=== PATIENT | male | born 1945 | race Caucasian/White ===

== ENCOUNTER → 2018-05-16 11:30 | Outpatient (CLI) | payer MEDICARE, OTHER, SELFPAY | PROVIDERS: PCP Family Medicine; Visit Provider Internal Medicine Interventional Cardiology | DX: I25.709 Atherosclerosis of coronary artery bypass graft(s), unspecified, with unspecified angina pectoris (principal); E78.5 Hyperlipidemia, unspecified; I35.0 Nonrheumatic aortic (valve) stenosis; I10 Essential (primary) hypertension; Z79.01 Long term (current) use of anticoagulants; Z79.82 Long term (current) use of aspirin; E11.9 Type 2 diabetes mellitus without complications; Z79.84 Long term (current) use of oral hypoglycemic drugs | CPT/HCPCS: 99213 ==

== ENCOUNTER 2018-08-06 17:26 | Emergency (ER) | payer MEDICARE, OTHER, SELFPAY ==
[2018-08-06 17:38] VITALS: BP 139/76; PULSE 87; RESP 18; TEMP 36.7
--- NOTE | 2018-08-06 17:43 | DI.RAD_ITS ---
SYMPTOM/DIAGNOSIS: COUGH, PRODUCTIVE SPUTUM FRONTAL AND LATERAL CHEST: Comparison is made with 04/02/15. Heart size is stable. Sternal wires are in place. Pulmonary vasculature is within normal limits. No focal consolidating infiltrates, effusions or pneumothoraces are identified. The bones are intact. IMPRESSION: No acute pulmonary process.
--- NOTE | 2018-08-06 17:45 | W.ED.GENAD ---
Discharge Plan Disposition Patient Disposition: HOME Condition: Good Discharge Details Chief Complaint: GenMedical Clinical Impression: URI (upper respiratory infection) Primary Care Provider: Lulú Toribio ED Provider: Abraham Bass Home Meds and New Rx's Prescriptions: New azithromycin 250 mg tablet See Label Instructions .ROUTE .COMPLEX Qty: 6 RF: 0 No Action multivitamin [Once Daily] 1 EACH tablet 1 tab PO DAILY RF: 0 acetaminophen [Tylenol] 325 MG tablet 2 tab PO PRN RF: 0 blood sugar diagnostic [Blood Glucose Test] 1 EACH strip 1 ea Miscellaneous QID Qty: 400 RF: 4 aspirin [Aspirin Low-Strength] 81 MG tablet,chewable 1 tab.chew PO DAILY RF: 0 lancets 1 EACH misc 1 ea Miscellaneous QID Qty: 400 RF: 4 clotrimazole-betamethasone [Lotrisone] 45 GM cream 1 autumn Topical BID PRNQty: 45 RF: 12 albuterol sulfate [ProAir HFA] 8.5 GM HFA aerosol inhaler 1 - 2 puff Inhalation Q6H PRN Qty: 1 RF: 12 ramelteon [Rozerem] 8 MG tablet 8 mg PO HS PRNRF: 0 clopidogrel [Plavix] 75 MG tablet 75 mg PO DAILY Qty: 90 RF: 4 glipizide 10 MG tablet extended release 24hr 10 mg PO DAILY Qty: 90 RF: 11 zaleplon 5 MG capsule 1 - 2 tab PO HS RF: 0 metoprolol succinate 100 MG tablet extended release 24 hr 100 mg PO DAILY Qty: 90 RF: 12 lisinopril 30 MG tablet 30 mg PO DAILY Qty: 90 RF: 11 Metoprolol Succinate 25 MG TAB.ER.24H 25 mg PO DAILY Qty: 90 RF: 12 doxycycline monohydrate 100 MG capsule 100 mg PO BID Qty: 20 RF: 0 atorvastatin [Lipitor] 80 MG tablet 1 tab PO DAILY Qty: 90 RF: 4 tamsulosin [Flomax] 0.4 MG capsule 1 tab PO HS Qty: 90 RF: 4 pantoprazole [Protonix] 40 MG tablet,delayed release (DR/EC) 1 tab PO Q48 H PRNQty: 90 RF: 4 Discharge Instructions Instructions: Upper Respiratory Infection (ED) Additional Instructions: If you do not notice any improvement of your symptoms in the next 24-48 hours please start taking the antibiotics. Please follow-up with your bag machine set up operator as soon as possible for further evaluation of your EKG findings. If you notice any worsening of your symptoms, or any new symptoms such as vomiting, diarrhea, fever, chills, shortness of breath, chest pain, numbness, weakness, or fainting , please return immediately to the emergency department for reevaluation. Please follow up with your primary care provider as soon as possible for reassessment and reevaluation. As always, it was a pleasure participating in your medical care today. Referrals: Lulú Toribio MD, [place] [Primary Care Provider] - Medical Decision Making This is a very pleasant 72-year-old male with a history of cardiac disease no history of lung problems, who presents today for evaluation of cough. He and his have similar symptoms, it began when they are exposed to 1 of their family members 4 days ago who had an upper respiratory infection. Since then the patient has had a mild cough for the last 4 days with andujar sputum, he denies any green or purulent sputum, hemoptysis, shortness of breath, chest pain, chest pressure, arm neck or shoulder discomfort. On physical exam the patient appears clinically well, he shows no signs of wheezes rales or rhonchi, his vitals are all stable with no tachycardia, hypoxemia, hypotension, tachypnea or fever. We will get an x-ray to evaluate for any acute etiology, specifically pneumonia however I feel this unlikely. EKG 17: 52 Rate 88, intervals normal, questionable irregular conduction with artifact concerning for potential atrial fibrillation/a flutter. No significant ST elevations or depressions, Q waves in lead III. No T wave inversions. Previous EKG for comparison was in 2014. EKG 20: 12 Rate 92, QTc 421, QRS 92, atrial fibrillation, no ST elevations or depressions, no T wave inversions. Q waves in lead III. 7:48 PM Chest x-ray has returned and is negative per radiology. Clinically the patient appears well with no vital sign abnormalities, no hypoxemia, no signs of respiratory distress. Because of the patient's symptoms, we will give him a prescription for azithromycin however I have instructed him not to take this unless he shows no improvement of his symptoms over the next 48 hours. I feel at this time he is suffering from an upper respiratory infection is most likely viral in etiology. With no chest pain, shortness of breath, arm neck or shoulder pain, no chest pressure I feel that his current clinical symptoms are inconsistent with a cardiac etiology. I did discuss with the patient his EKG finding of atrial fibrillation, he states that he has been worked up thoroughly for A. fib by his bag machine set up operator Dr. Huerta and states that it was not felt that he needed anticoagulation therapy. He is already on aspirin and Plavix at home for antiplatelet medication. Review of the patient's prior EKG from 2014 which is quite distance from his recent follow-up with Dr. Huerta shows no evidence of A. fib at that time. However with the evidence of the A. fib on today's EKG, and repeat EKG, as well as his chads vas score calculated to be 4, anticoagulation is recommended. I discussed with the patient starting on anticoagulation now, and after a long discussion the patient has requested to hold off on anticoagulation at this time and continue his aspirin and Plavix. He would like to follow-up with his bag machine set up operator for this potential change on a short-term basis. We did discuss the risks and benefits of just using antiplatelet medication instead of anticoagulation medication the patient states that he understands this risk. Personally reviewed the risks on the chads vas 2 score and he understands. I did discuss with the patient the importance of close follow-up with Dr. Huerta for review of his EKG. we did place a page out to [facility], however they did not call back for an hour, and the patient was unwilling to wait and wanted to go home. I have extensively reviewed the treatment plan and discharge instructions with the patient and their family. I have addressed all patient concerns at this time. The patient and family was made aware of what symptoms to monitor for that would warrant a return to the emergency department. Discussed the plan with the patient and family, they demonstrate verbal understanding and agreement with our assessment and plan at this time. FINDINGS: Lungs: Unremarkable. No consolidation. Pleural space: Unremarkable. No pneumothorax. Heart: Unremarkable. No cardiomegaly. Mediastinum: Unremarkable. Bones/joints: Median sternotomy wires noted. Disc osteophyte of the spine. IMPRESSION: No acute findings. Dictated and Authenticated by: Ron Garzon MD. HPI General Date/Time Provider Initiated Documentation: 10/27/18 17:43. HPI Narrative: This is a 72-year-old male with a past medical history of a CABG, diabetes, hypertension, who takes daily aspirin and Plavix, who presents today with his for evaluation of cough. His is very sick, and the patient wanted to come in to be checked out. He states that 4 days ago. Family that had an upper respiratory infection, shortly thereafter he and his came down with the symptoms. He has had a cough with productive andujar sputum. He denies any significant fever, he denies any chills, shortness of breath, chest pain, arm pain, neck pain or shoulder pain. He states that none of these symptoms that he currently has reminds him at all of his previous cardiac disease episodes. He denies any fatigue, numbness, tingling, or weakness. Patient has had his influenza and pneumonia vaccine. He denies any hemoptysis. Denies PE risk factors such as recent long car rides, immobilization, recent surgery, prior history of DVT or PE, family history of PE or DVT, morbid obesity, exogenous estrogen and smoking, hemoptysis, history of cancer. He denies any chest pressure. The patient denies any other complaints at this time. He denies any other pertinent family history. He denies any history of tobacco use. Related Data Home Medications Medication Instructions Recorded Confirmed acetaminophen [Tylenol] 2 tab PO PRN tab-cap 01/27/13 06/08/17 aspirin [Aspirin Low-Strength] 1 tab.chew PO DAILY tab.chew 01/27/13 06/08/17 blood sugar diagnostic [Glucose #400 strip 01/27/13 Test Strip] lancets #400 ea 01/27/13 multivitamin [Once Daily] 1 tab PO DAILY 01/27/13 06/08/17 clotrimazole-betamethasone 1 autumn TOPICAL BID PRN #45 gm 09/04/13 [Lotrisone Cream] albuterol sulfate [Proair Hfa] 1 - 2 puff INHALATION Q6H PRN #1 12/14/16 inhaler clopidogrel [Plavix] 75 mg PO DAILY #90 tab-cap 01/04/18 glipizide 10 mg PO DAILY #90 tab-cap 01/04/18 ramelteon [Rozerem] 8 mg PO HS PRN tab-cap 01/04/18 zaleplon 1 - 2 tab PO HS 05/24/18 doxycycline monohydrate 100 mg PO BID #20 tab-cap 05/23/18 lisinopril 30 mg PO DAILY #90 tab-cap 05/23/18 metoprolol succinate 100 mg PO DAILY #90 tab-cap 05/23/18 atorvastatin [Lipitor] 1 tab PO DAILY #90 tab-cap 05/24/18 pantoprazole [Protonix] 1 tab PO Q48 H PRN #90 tab-cap 05/24/18 tamsulosin [Flomax] 1 tab PO HS #90 tab 05/24/18 azithromycin See Label Instructions .ROUTE 08/06/18 .COMPLEX #6 tab Previous Rx's Medication Instructions Recorded clopidogrel [Plavix] 75 mg PO DAILY #90 tab-cap 01/04/18 glipizide 10 mg PO DAILY #90 tab-cap 01/04/18 doxycycline monohydrate 100 mg PO BID #20 tab-cap 05/23/18 lisinopril 30 mg PO DAILY #90 tab-cap 05/23/18 metoprolol succinate 100 mg PO DAILY #90 tab-cap 05/23/18 atorvastatin [Lipitor] 1 tab PO DAILY #90 tab-cap 05/24/18 tamsulosin [Flomax] 1 tab PO HS #90 tab 05/24/18 azithromycin See Label Instructions .ROUTE 08/06/18 .COMPLEX #6 tab Allergies Allergy/AdvReac Type Severity Reaction Status Date / Time cefuroxime Allergy Intermediate RASH AND Unverified 05/23/18 14:47 LOW GRADE FEVER Sulfa (Sulfonamide Allergy Unknown Unverified 05/23/18 14:47 Antibiotics) General Stated Complaint: GenMedical MICHAEL: 4 Review of Systems Review of Systems All systems reviewed & are unremarkable except as noted in HPI and below PFSH Family History Father Heart disease Angina pectoris Brother No problems noted. 2 SIBLINGS Personal history of malignant neoplasm Medical History Atherosclerosis of [place] coronary artery of [place] heart without angina pectoris DM (diabetes mellitus) DONOVAN (obstructive sleep apnea) Peptic reflux disease Social History Smoking/Tobacco Use Status: Never Surgical History Colonoscopy - MAC (06/08/17) Coronary Artery Bypass Gaft (CABG) (~2004) Coronary Stent (~2014) Stent placement (~2005) Exam Narrative Exam Narrative: 1.Const: Well-nourished, Well-developed, appearing stated age 2.Eyes: PERRL, no conjunctival injection, and symmetrical lids. 3.ENT: Atraumatic external nose and ears. Moist MM. Neck: Symmetric, trachea midline, No thyromegaly. No significant erythema the posterior oropharynx. 4.CVS: +S1/S2, No murmurs or gallops. Peripheral pulses 2+ and equal in all extremities. Brisk capillary refill in all extremities. 5.RESP: Unlabored respiratory effort. Clear to auscultation bilaterally. No wheezes rales or rhonchi 6.GI: Soft, Nontender/Nondistended, No hepatosplenomegaly. No guarding or rebound. 7.MSK: Normocephalic/Atraumatic, Extremities w/o deformity or ttp No cyanosis or clubbing, Normal movement of all extremities 8.Skin: Warm, Dry. No rashes or lesions. 9.Neuro: hide examiner II-XII grossly intact. Sensation grossly intact, no focal neurologic deficits. 10.Psych: (AAO) x3. Appropriate mood and affect Course Vital Signs Temperature 36.7 C 08/06/18 17:38 Pulse 87 08/06/18 17:38 Respiratory Rate 18 08/06/18 17:38 Blood Pressure 139/76 08/06/18 17:38 Temperature 36.7 C 08/06/18 17:38 Temperature Source Temporal Artery Scan 08/06/18 17:38 Pulse 87 08/06/18 17:38 Respiratory Rate 18 08/06/18 17:38 Respiratory Effort 08/06/18 17:40 Respiratory Depth Normal 08/06/18 17:40 Respiratory Pattern Normal 08/06/18 17:40 Blood Pressure 139/76 08/06/18 17:38 Blood Pressure Position Sitting 08/06/18 17:38 Oxygen Delivery Method Non-Rebreather 08/06/18 17:38 Oxygen Flow Rate 0 08/06/18 17:38
[2018-08-06] MEDS: Albuterol/Ipratropium 3 ML UPD VIAL UPD (18:28)
--- NOTE | 2018-08-06 19:34 | DI.VRAD_ITS ---
EXAM: XR Chest, 2 Views CLINICAL HISTORY: 72 years old, male; Signs and symptoms; Cough TECHNIQUE: Frontal and lateral views of the chest. COMPARISON: CR RIGHT RIBS TO INCLUDE CXR 04/02/2015 2:11 PM FINDINGS: Lungs: Unremarkable. No consolidation. Pleural space: Unremarkable. No pneumothorax. Heart: Unremarkable. No cardiomegaly. Mediastinum: Unremarkable. Bones/joints: Median sternotomy wires noted. Disc osteophyte of the spine. IMPRESSION: No acute findings. Dictated and Authenticated by: Ron Garzon MD. Ordering:RAPHAEL HARTMANN MD
[2018-08-06 20:17] VITALS: BP 143/73; PULSE 88; RESP 20; TEMP 36.5; O2SAT 97
--- NOTE | 2018-08-08 07:23 | PDOC.ERCMPRO ---
Care Management Progress Note 08/08-Dr. Bass requested cardiology f/u as soon as possible for new afib. Referral faxed to cardiology this am.
== END 2018-08-06 20:48 | disposition home or self-care (01) ==
PROVIDERS: Emergency Provider Student in an Organized Health Care Education/Training Program; PCP Family Medicine
DX: J06.9 Acute upper respiratory infection, unspecified (principal); E11.9 Type 2 diabetes mellitus without complications; Z79.4 Long term (current) use of insulin; I10 Essential (primary) hypertension
CPT/HCPCS: 36415; 80053; 82805; 93005; 94640; 99285; 71046; 84484; 85025; 93010; 99284; J7620

== ENCOUNTER → 2018-08-08 14:46 | Outpatient (BNVA) | payer MEDICARE, OTHER, SELFPAY | PROVIDERS: PCP Family Medicine; Visit Provider Internal Medicine Interventional Cardiology | DX: I25.810 Atherosclerosis of coronary artery bypass graft(s) without angina pectoris (principal); I48.91 Unspecified atrial fibrillation; I10 Essential (primary) hypertension; E11.9 Type 2 diabetes mellitus without complications | CPT/HCPCS: 99213 ==

== ENCOUNTER 2018-08-22 02:06 | Outpatient (CLI) | payer MEDICARE, OTHER, SELFPAY ==
--- NOTE | 2018-09-12 10:15 | ZIOP_ITS ---
DATE OF DICTATION: September 12, [address]: 13 days, 21 hours, August 22 - 2017 Baseline rhythm sinus. Rare frequent single PAC. 145 bursts of SVT, longest 14.8 seconds, fastest 103 bpm. Rare occasional PVC, rare couplet, rare triplet. No VT. No bradycardia/block. No triggered events. No symptoms. Average heart rate sinus 70 bpm, range 44-134 bpm.
== END 2018-08-22 02:26 ==
PROVIDERS: PCP Family Medicine; Visit Provider Internal Medicine Interventional Cardiology
DX: I48.91 Unspecified atrial fibrillation (principal); I49.1 Atrial premature depolarization; I47.1 Supraventricular tachycardia; I49.3 Ventricular premature depolarization
CPT/HCPCS: 93225

== ENCOUNTER 2018-09-12 09:24 | Outpatient (CLI) | payer MEDICARE, OTHER, SELFPAY | END 2018-09-12 09:44 | PROVIDERS: PCP Family Medicine; Referring Provider Internal Medicine Interventional Cardiology; Visit Provider Internal Medicine Interventional Cardiology | DX: I48.91 Unspecified atrial fibrillation (principal); I49.1 Atrial premature depolarization; I47.1 Supraventricular tachycardia; I49.3 Ventricular premature depolarization | CPT/HCPCS: 0298T ==

== ENCOUNTER 2018-09-14 02:20 | Outpatient (CLI) | payer MEDICARE, OTHER, SELFPAY ==
[2018-09-14 12:57] LABS: Hemoglobin A1C 8.2 % (4.5-6.2)
[2018-09-14 13:04] LABS: ALT 39 U/L (12-78); AST 23 U/L (15-37); Albumin 3.7 g/dL (3.4-5.0); Alkaline Phosphatase 84 U/L (46-116); Anion Gap 7.9 mmol/L (3-11); BUN 15 mg/dL (7-18); Bilirubin, Total 0.8 mg/dL (0.2-1.0); CO2 30.1 mmol/L (21.0-32.0); COMMENT (LAB VIEW ONLY) 114.76 mg/dL; CREATININE 0.94 mg/dL (0.70-1.30); Calcium 9.4 mg/dL (8.5-10.1); Chloride 99 mmol/L (98-107); Cholesterol 121 mg/dL (50-200); Glucose 224 mg/dL (70-100); HDL Cholesterol 38 mg/dL (40-60); LDL CHOLESTEROL 70 mg/dL (<100); Microalb ug/mg Crea 18.7 ug/mg Cr; Sodium 137 mmol/L (136-145); Total Protein 7.3 g/dL (6.4-8.2); Triglyceride 145 mg/dL (30-150)
== END 2018-09-14 02:40 ==
PROVIDERS: PCP Family Medicine; Visit Provider Family Medicine
DX: E11.9 Type 2 diabetes mellitus without complications (principal); I25.10 Atherosclerotic heart disease of native coronary artery without angina pectoris
CPT/HCPCS: 36415; 80053; 80061; 83721; 82043; 82570; 83036

== ENCOUNTER 2018-09-19 09:45 | Outpatient (CLI) | payer MEDICARE, OTHER, SELFPAY | END 2018-09-19 10:05 | PROVIDERS: PCP Family Medicine; Visit Provider Internal Medicine Interventional Cardiology | DX: I25.810 Atherosclerosis of coronary artery bypass graft(s) without angina pectoris (principal); I48.91 Unspecified atrial fibrillation; I10 Essential (primary) hypertension; E11.9 Type 2 diabetes mellitus without complications; Z79.84 Long term (current) use of oral hypoglycemic drugs | CPT/HCPCS: 93005; 93010; 99213 ==

== ENCOUNTER 2018-10-31 19:40 | Outpatient (REF) | payer MEDICARE, OTHER, SELFPAY | END 2018-10-31 20:00 | LOC: LBN 19:40 | PROVIDERS: PCP Family Medicine; Visit Provider Internal Medicine | DX: R82.90 Unspecified abnormal findings in urine (principal); E86.0 Dehydration | CPT/HCPCS: 87077; 87086; 87186 ==

== ENCOUNTER 2018-11-03 15:34 | Outpatient (REF) | payer MEDICARE, OTHER, SELFPAY ==
[2018-11-04 17:36] LABS: Result SEE COMMENTS; Specimen Description Feces
== END 2018-11-03 15:54 ==
LOC: LBN 15:34
PROVIDERS: PCP Family Medicine; Visit Provider Family Medicine
DX: R19.7 Diarrhea, unspecified (principal)
CPT/HCPCS: 87329; 87177; 87798

== ENCOUNTER 2018-12-22 02:10 | Outpatient (CLI) | payer MEDICARE, OTHER, SELFPAY ==
[2018-12-22 12:03] LABS: Hemoglobin A1C 8.4 % (4.5-6.2)
[2018-12-22 12:09] LABS: ALT 35 U/L (12-78); AST 20 U/L (15-37); Albumin 3.6 g/dL (3.4-5.0); Alkaline Phosphatase 84 U/L (46-116); Bilirubin, Total 0.8 mg/dL (0.2-1.0); Cholesterol 94 mg/dL (50-200); HDL Cholesterol 38 mg/dL (40-60); LDL CHOLESTEROL 42 mg/dL (<100); Total Protein 6.7 g/dL (6.4-8.2); Triglyceride 100 mg/dL (30-150)
[2018-12-22 12:19] LABS: Bilirubin, Direct 0.19 mg/dL (0.00-0.20)
== END 2018-12-22 02:30 ==
PROVIDERS: Internal Medicine Interventional Cardiology; PCP Family Medicine; Visit Provider Family Medicine
DX: I25.10 Atherosclerotic heart disease of native coronary artery without angina pectoris (principal); I48.91 Unspecified atrial fibrillation; E11.9 Type 2 diabetes mellitus without complications
CPT/HCPCS: 36415; 80061; 80076; 83721; 83036

== ENCOUNTER 2019-02-10 02:12 | Outpatient (CLI) | payer MEDICARE, OTHER, SELFPAY ==
--- NOTE | 2019-02-14 10:04 | HOLTER_ITS ---
48-HOUR STUDY Baseline rhythm sinus. Frequent single PAC. Eight bursts of SVT, longest 13-beat duration, fastest 132 bpm. No atrial fibr illation. Occasional single PVC. One couplet. No VT. Nocturnal heart rates as low as 55-60 bpm, sinus bradycardia. No symptoms. Average heart rate 63 bpm.
== END 2019-02-10 02:32 ==
PROVIDERS: PCP Family Medicine; Visit Provider Internal Medicine Interventional Cardiology
DX: I48.91 Unspecified atrial fibrillation (principal); I49.1 Atrial premature depolarization; I47.1 Supraventricular tachycardia
CPT/HCPCS: 93225

== ENCOUNTER 2019-02-13 09:36 | Outpatient (CLI) | payer MEDICARE, OTHER, SELFPAY | END 2019-02-13 09:56 | PROVIDERS: PCP Family Medicine; Visit Provider Internal Medicine Interventional Cardiology | DX: I48.91 Unspecified atrial fibrillation (principal); I49.1 Atrial premature depolarization; I47.1 Supraventricular tachycardia | CPT/HCPCS: 93227; 93226 ==

== ENCOUNTER 2019-02-13 19:06 | Outpatient (CLI) | payer MEDICARE, OTHER, SELFPAY | END 2019-02-13 19:26 | PROVIDERS: PCP Family Medicine; Referring Provider Family Medicine; Visit Provider Internal Medicine Interventional Cardiology | DX: R69 Illness, unspecified (principal) ==

== ENCOUNTER 2019-02-20 08:38 | Outpatient (CLI) | payer MEDICARE, OTHER, SELFPAY | END 2019-02-20 08:58 | PROVIDERS: PCP Family Medicine; Visit Provider Internal Medicine Interventional Cardiology | DX: I25.10 Atherosclerotic heart disease of native coronary artery without angina pectoris (principal); Z95.818 Presence of other cardiac implants and grafts; I48.91 Unspecified atrial fibrillation; E11.9 Type 2 diabetes mellitus without complications | CPT/HCPCS: 93005; 93010; 99213 ==

== ENCOUNTER 2019-04-18 02:11 | Outpatient (CLI) | payer MEDICARE, OTHER, SELFPAY ==
[2019-04-18 12:55] LABS: Hemoglobin A1C 8.9 % (4.5-6.2)
== END 2019-04-18 02:31 ==
PROVIDERS: PCP Family Medicine; Visit Provider Family Medicine
DX: E11.9 Type 2 diabetes mellitus without complications (principal)
CPT/HCPCS: 36415; 83036

== ENCOUNTER 2019-05-02 11:07 | Outpatient (CLI) | payer MEDICARE, OTHER, SELFPAY ==
--- NOTE | 2019-05-02 13:00 | DI.RAD_ITS ---
SYMPTOMS/DIAGNOSIS: RIGHT SHOULDER PAIN, CHRONIC, M25.511, G89.29 RIGHT SHOULDER: Five views. Mild hypertrophic changes are seen at both the acromioclavicular joint and the glenohumeral joint. There is mild spurring at the lateral aspect of the acromion. No acute fracture, dislocation, lytic or sclerotic lesion is seen. The soft tissues are unremarkable. IMPRESSION: Mild degenerative changes of the right shoulder.
== END 2019-05-02 11:27 ==
PROVIDERS: PCP Family Medicine; Visit Provider Family Medicine
DX: G89.29 Other chronic pain (principal); M25.511 Pain in right shoulder; M19.011 Primary osteoarthritis, right shoulder
CPT/HCPCS: 73030

== ENCOUNTER 2019-06-19 21:27 | Outpatient (REF) | payer MEDICARE, OTHER, SELFPAY ==
[2019-06-19 19:27] LABS: Bilirubin Negative (Negative); Blood Small (Negative); Clarity Clear (Clear); Glucose >=1000 mg/dL (Negative); Ketones Negative (Negative); Leukocyte Esterase Trace (Negative); Nitrite Positive (Negative); Urobilinogen 0.2 EU/dL (Up TO 0.2)
[2019-06-19 20:02] LABS: Bacteria Many HPF (Negative); C & S Indicated? Yes; Casts Negative LPF (Negative); Crystals Negative HPF (Negative); Epithelial Cells Negative HPF (Negative); Mucus Negative (Negative); Other Cells Negative (Negative); RBC Negative (0-2); WBC 20-50 HPF (0-5)
== END 2019-06-19 21:47 ==
LOC: LBN 21:27
PROVIDERS: PCP Family Medicine; Visit Provider Family Medicine
DX: R30.0 Dysuria (principal)
CPT/HCPCS: 87077; 81003; 81015; 87086; 87186

== ENCOUNTER 2019-08-25 01:54 | Outpatient (CLI) | payer MEDICARE, OTHER, SELFPAY ==
[2019-08-25 11:40] LABS: Hemoglobin A1C 6.8 % (4.5-6.2)
== END 2019-08-25 02:14 ==
PROVIDERS: PCP Family Medicine; Visit Provider Family Medicine
DX: E11.9 Type 2 diabetes mellitus without complications (principal)
CPT/HCPCS: 36415; 83036

== ENCOUNTER → 2019-08-28 12:40 | Outpatient (BNVA) | payer MEDICARE, OTHER, SELFPAY | PROVIDERS: PCP Family Medicine; Referring Provider Family Medicine; Visit Provider Internal Medicine Cardiovascular Disease | DX: I25.10 Atherosclerotic heart disease of native coronary artery without angina pectoris (principal); E78.5 Hyperlipidemia, unspecified; Z95.5 Presence of coronary angioplasty implant and graft; I10 Essential (primary) hypertension; I48.91 Unspecified atrial fibrillation; I47.1 Supraventricular tachycardia | CPT/HCPCS: 99214 ==

== ENCOUNTER → 2020-02-26 15:55 | Outpatient (BNVA) | payer MEDICARE, OTHER, SELFPAY | PROVIDERS: PCP Family Medicine; Referring Provider Family Medicine; Visit Provider Internal Medicine Cardiovascular Disease | DX: I70.90 Unspecified atherosclerosis (principal); E78.5 Hyperlipidemia, unspecified; I25.810 Atherosclerosis of coronary artery bypass graft(s) without angina pectoris; I48.91 Unspecified atrial fibrillation | CPT/HCPCS: 99443 ==

== ENCOUNTER 2020-03-20 01:34 | Outpatient (CLI) | payer MEDICARE, OTHER, SELFPAY ==
[2020-03-20 14:17] LABS: COMMENT (LAB VIEW ONLY) 69.55 mg/dL; Microalb ug/mg Crea 35.4 ug/mg Cr
[2020-03-20 15:54] LABS: ALT 49 U/L (16-63); AST 24 U/L (15-37); Albumin 4.1 g/dL (3.4-5.0); Alkaline Phosphatase 74 U/L (46-116); Anion Gap 8.7 mmol/L (3-11); BUN 22 mg/dL (7-18); Bilirubin, Total 0.6 mg/dL (0.2-1.0); CO2 28.3 mmol/L (21.0-32.0); CREATININE 0.94 mg/dL (0.70-1.30); Calcium 9.2 mg/dL (8.5-10.1); Calculated LDL 43 mg/dL (<100); Chloride 106 mmol/L (98-107); Cholesterol 100 mg/dL (<200); Glucose 197 mg/dL (74-106); HDL Cholesterol 45 mg/dL (40-60); Potassium 3.7 mmol/L (3.5-5.1); Sodium 143 mmol/L (136-145); Total Protein 7.1 g/dL (6.4-8.2); Triglyceride 63 mg/dL (<150)
== END 2020-03-20 01:54 ==
PROVIDERS: PCP Family Medicine; Visit Provider Family Medicine
DX: E11.9 Type 2 diabetes mellitus without complications (principal); R07.9 Chest pain, unspecified; I70.90 Unspecified atherosclerosis
CPT/HCPCS: 36415; 80053; 80061; 82043; 82570

== ENCOUNTER 2020-06-20 03:03 | Outpatient (CLI) | payer MEDICARE, OTHER, SELFPAY ==
[2020-06-20 12:03] LABS: Hemoglobin A1C 7.6 % (<5.7)
== END 2020-06-20 03:23 ==
PROVIDERS: PCP Family Medicine; Visit Provider Family Medicine
DX: E11.9 Type 2 diabetes mellitus without complications (principal)
CPT/HCPCS: 36415; 83036

== ENCOUNTER → 2020-09-17 11:34 | Outpatient (BNVA) | payer MEDICARE, OTHER, SELFPAY | PROVIDERS: PCP Family Medicine; Referring Provider Family Medicine; Visit Provider Internal Medicine Cardiovascular Disease | DX: I25.10 Atherosclerotic heart disease of native coronary artery without angina pectoris (principal); Z95.1 Presence of aortocoronary bypass graft; I70.90 Unspecified atherosclerosis; E78.5 Hyperlipidemia, unspecified; I10 Essential (primary) hypertension | CPT/HCPCS: 99214 ==

== ENCOUNTER 2020-12-30 03:34 | Outpatient (CLI) | payer MEDICARE, OTHER, SELFPAY ==
[2020-12-30 12:31] LABS: ALT 71 U/L (16-63); AST 31 U/L (15-37); Alkaline Phosphatase 72 U/L (46-116); Anion Gap 8.1 mmol/L (3-11); BUN 27 mg/dL (7-18); Bilirubin, Total 0.9 mg/dL (0.2-1.0); CO2 29.9 mmol/L (21.0-32.0); Calcium 9.7 mg/dL (8.5-10.1); Calculated LDL 41 mg/dL (<100); Chloride 104 mmol/L (98-107); Cholesterol 108 mg/dL (<200); Glucose 198 mg/dL (74-106); HDL Cholesterol 43 mg/dL (40-60); Sodium 142 mmol/L (136-145); Triglyceride 121 mg/dL (<150)
[2020-12-30 12:40] LABS: Hemoglobin A1C 7.6 % (<5.7)
== END 2020-12-30 03:35 | disposition home or self-care (01) ==
PROVIDERS: PCP Family Medicine; Visit Provider Family Medicine
DX: E11.9 Type 2 diabetes mellitus without complications (principal); R07.9 Chest pain, unspecified; I70.91 Generalized atherosclerosis
CPT/HCPCS: 36415; 80053; 80061; 83036

== ENCOUNTER 2021-03-12 02:22 | Outpatient (CLI) | payer MEDICARE, OTHER, SELFPAY ==
--- NOTE | 2021-03-12 10:28 | DI.US_ITS ---
APPROVED REPORT EXAM: Comprehensive 2D, Doppler, and color-flow Echocardiogram Patient Location: Out-Patient Technical Support Internship: Carina Berger RDCS (AE) Indications: Aortic Stenosis, Chest pain Other Information Study Quality: Fair. Technically limited study due to body habitus. Conclusion Left Ventricle : The left ventricle is normal size. The left ventricular systolic function is normal. The left ventricular ejection fraction is within the normal range. There is normal left ventricular wall thickness. There is normal LV segmental wall motion. The left ventricular diastolic function is abnormal. LVEF is 57%. Right Ventricle : Right ventricle is not well visualized. Right ventricular systolic function could n ot be assessed. The RVSP is 30.5 mmHg. Atria : The left atrium size is normal. Right atrium is not well visualized. Aortic Valve : Aortic valve is calcified. Aortic valve is trileaflet. Mild aortic stenosis. Peak aort ic valve gradient is 23.4mmHg. Highest mean aortic valve gradient is 13.0_mmHg. Calculated VIKTOR by the continuity equation is 1.36cm2. No aortic regurgitation is present. Mitral Valve : Moderate mitral annular calcification. Mild mitral regurgitation. No evidence of brian l valve stenosis. Great Vessels : The aortic root is normal in size. Ascending aorta is not well visualized. Aortic arc h is not well visualized. IVC is normal in size and collapses >50% with inspiration. Compared to study from 01/24/2018, there is no significant change Wall motion Left Ventricle The left ventricle is normal size. The left ventricular systolic function is normal. The left ventric ular ejection fraction is within the normal range. There is normal left ventricular wall thickness. T here is normal LV segmental wall motion. The left ventricular diastolic function is abnormal. There i s no ventricular septal defect visualized. LVEF is 57%. Right Ventricle Right ventricle is not well visualized. Right ventricular systolic function could not be assessed. Th e RVSP is 30.5 mmHg. Atria The left atrium size is normal. Right atrium is not well visualized. The interatrial septum is intact with no evidence for an atrial septal defect. Aortic Valve Aortic valve is calcified. Aortic valve is trileaflet. Mild aortic stenosis. Peak aortic valve gradie nt is 23.4mmHg. Highest mean aortic valve gradient is 13.0_mmHg. Calculated VIKTOR by the continuity equ ation is 1.36cm2. No aortic regurgitation is present. Mitral Valve Moderate mitral annular calcification. No evidence of mitral valve stenosis. Mild mitral regurgitatio n. Tricuspid Valve The tricuspid valve is normal in structure. There is no tricuspid valve stenosis. Trace to mild tricu spid regurgitation. Pulmonic Valve Pulmonic valve is not well visualized. There is no pulmonic valvular stenosis. There is no pulmonic v alvular regurgitation. Great Vessels The aortic root is normal in size. Ascending aorta is not well visualized. Aortic arch is not well vi sualized. IVC is normal in size and collapses >50% with inspiration. Pericardium There is no pericardial effusion. 2D Dimensions IVSD d PLAX 1.02 cm M: 0.6-1.2 LV Vol A2C d MOD 86.1 mL LVPW d PLAX 1.01 cm M: 0.6 - 1.2 LV Vol A4C d MOD 85.5 mL LVID d PLAX 4.45 cm M: 4.2 - 5.8 LA vol/ BSA A2C s A-L 27.7 mL/m2 LVDs 3.10 cm M: 2.5 - 4.0 LA vol/ BSA A4C s A-L 32.7 mL/m2 Ao Root d 2.66 cm M: 3.1 - 3.7 LA Vol/ BSA Biplane s A-L 30.4 mL/m2 RA Area A4C 14.83 cm2 LA Area A4C s MOD 20.81 cm2 RA Vol/ BSA A4C s A-L 16.7 mL/m2 LA Area A2C s MOD 18.97 cm2 LV EF Teichholz 56.7 % LV EF A4C MOD 58.5 % LVEF (Borja's) 58.10 % M: 52 - 72 LV EF A2C MOD 56.1 % LV Volume 66.54 mL M: 62 - 150 LV EF Biplane MOD 58.1 % LV Volume Index 33.94 mL/m2 M: 34 - 74 SV 51.22 mL LV Vol Biplane MOD 88.2 mL SV Index 26.10 mL/m2 FS 29.50 % M-Mode TAPSE 1.47 cm (M/F) >1.7 LV Diastology MV E' medial 0.067 (>0.07 m/s) E/A Ratio 1.3 LV E/e MED 15.85 (<14) MV E Vmax 1.06 (0.4-1.3 m/s) MV E' lateral 0.045 (>0.1 m/s) MV A Vmax 0.80 (0.4-1.3 m/s) LV E/e LAT 23.55 (<14) MV E/A Ratio 1.30 MV E/E' medial 15.85 MV E/E' lateral 23.55 Aortic Valve LVOT Area 2.87 cm2 AoV Area Vmax 1.36 cm2 LVOT Vmax 1.14 m/s AoV Area/ BSA (Vmax) 0.69 cm2/m2 LVOT Mean Rodrigue. 0.72 m/s VIKTOR Mean Rodrigue. 1.22 cm2 LVOT Peak Grad 5.2 mmHg VIKTOR Mean Rodrigue. Index 0.62 cm2/m2 LVOT Mean Grad 2.5 mmHg LVOT VTI 0.277 m LVOT Diam s 1.90 cm AoV Vmax 2.42 m/s Velocity Ratio 0.47 AoV Mean Rodrigue. 1.69 m/s AoV Peak Grad 23.4 mmHg LVOT SV 79.50 mL AoV Mean Grad 13.0 mmHg AoV VTI 0.520 m AoV Area VTI 1.53 cm2 AoV Area/ BSA (VTI) 0.78 cm/m2 Mitral Valve MV DT 211 (160-240 msec) MV PHT 61 msec MV Area PHT 3.59 cm2 MV VTI 0.390 m MV VTI Annulus 0.395 m MV Area VTI 2.06 (4.0-6.0 cm2) Pulmonary Valve PV Vmax 1.54 (0.5-1.5 m/s) RVOT Peak Gr. 1.68 mmHg PV Peak Grad 9.4 mmHg RVOT Mean Gr. 0.85 mmHg PV Mean Grad 4.7 mmHg RVOT VTI 0.145 m PV VTI 0.301 m RVOT Vmax 0.65 m/s Tricuspid Valve TR Peak Grad 27.5 mmHg TR Vmax 2.62 m/s RA Pressure 3.00 mmHg RVSP (TR) 30.5 mmHg
== END 2021-03-12 02:42 ==
PROVIDERS: PCP Family Medicine; Visit Provider Internal Medicine Cardiovascular Disease
DX: R07.9 Chest pain, unspecified (principal); I08.0 Rheumatic disorders of both mitral and aortic valves; R93.9 Diagnostic imaging inconclusive due to excess body fat of patient
CPT/HCPCS: 93306

== ENCOUNTER → 2021-03-17 09:04 | Outpatient (BNVA) | payer MEDICARE, OTHER, SELFPAY | PROVIDERS: PCP Family Medicine; Referring Provider Family Medicine; Visit Provider Internal Medicine Cardiovascular Disease | DX: I25.810 Atherosclerosis of coronary artery bypass graft(s) without angina pectoris (principal); E78.5 Hyperlipidemia, unspecified; I10 Essential (primary) hypertension | CPT/HCPCS: 99214 ==

== ENCOUNTER 2021-06-25 02:38 | Outpatient (CLI) | payer MEDICARE, OTHER, SELFPAY ==
[2021-06-25 12:54] LABS: Hemoglobin A1C 8.4 % (<5.7)
[2021-06-25 13:37] LABS: COMMENT (LAB VIEW ONLY) 61.57 mg/dL; Microalb ug/mg Crea 20.5 ug/mg Cr
== END 2021-06-25 02:39 | disposition home or self-care (01) ==
LOC: LOS 02:39
PROVIDERS: PCP Family Medicine; Visit Provider Family Medicine
DX: E11.9 Type 2 diabetes mellitus without complications (principal)
CPT/HCPCS: 36415; 82043; 82570; 83036

== ENCOUNTER 2021-08-10 09:25 | Emergency (ER) | payer MEDICARE, OTHER, SELFPAY ==
[2021-08-10] VITALS (42 sets, daily range): BP systolic 118–160; BP diastolic 45–74; PULSE 57–78; RESP 14–24; TEMP 36.6; O2SAT 97–100
--- NOTE | 2021-08-10 09:15 | RT.EKG_ITS ---
APPROVED REPORT Exam: Resting ECG Reason for Exam: palpitations Patient Location: E HR:75 bpm ECG Measurements Heart Rate 75 AXIS TX 192 P 66 QRSd 106 QRS 15 QT 397 T -37 QTc 444 Conclusion Sinus rhythm...normal P axis, V-rate 60- 99 Inferior infarct, age indeterminate...Q>35mS, T neg, II III aVF Borderline ST elevation, anterior leads...ST >0.15mV in V1-V4 Physician: EKG 9: 33 Rate 75, sinus rhythm, less than 1 mm elevation in V1 and V2, Q waves in lead III, inverted T waves i n lead III and aVF. However review from EKG on 02/20/2019 shows identical findings. No acute changes . No evidence of clinical STEMI. No ST depression.
--- NOTE | 2021-08-10 09:30 | DI.RAD_ITS ---
Exam(s) XR CHEST 2V PA LATERAL EXAM: XR CHEST 2V PA LATERAL CLINICAL HISTORY: Palpitations. TECHNIQUE: 2D digital imaging was performed. COMPARISON: CR XR CHEST 2V PA LATERAL from 08/06/2018 FINDINGS: Sternotomy wires noted. Heart size is normal. The mediastinum is not widened. Lungs are clear. No infiltrates nor pleural effusions. Tenting of the right hemidiaphragm is unchanged from 2018. IMPRESSION: No acute pulmonary findings.Sternotomy wires again noted. DATA REPOSITORY: RADIATION DOSE DELIVERED:
--- NOTE | 2021-08-10 09:35 | W.ED.GENAD ---
Discharge Plan Disposition Patient Disposition: HOME Condition: Stable Discharge Details Clinical Impression: Heart palpitations, Left chest pressure Primary Care Provider: Lulú Toribio ED Provider: Ceferino Ochoa Home Meds and New Rx's Prescriptions: Continued Invokana 300 mg tablet 300 mg PO QAM Qty: 90 RF: 4 aspirin 81 mg tablet,delayed release (DR/EC) 81 mg PO DAILY Qty: 1 RF: 0 nystatin 100,000 unit/gram cream 1 applic topical DAILY PRN (Reason: rash) Qty: 30 RF: 4 apixaban 5 mg tablet 5 mg PO BID Qty: 180 RF: 4 atorvastatin [Lipitor] 80 mg tablet 80 mg PO DAILY Qty: 90 RF: 4 ezetimibe [Zetia] 10 mg tablet 10 mg PO DAILY Qty: 90 RF: 4 lisinopril 40 mg tablet 40 mg PO DAILY Qty: 90 RF: 5 metoprolol succinate 100 mg tablet extended release 24 hr 100 mg PO DAILY Qty: 90 RF: 5 metoprolol succinate 50 mg tablet extended release 24 hr 50 mg PO DAILY Qty: 90 RF: 5 pantoprazole [Protonix] 40 mg tablet,delayed release (DR/EC) 40 mg PO Q48 H MDD 1 PRN (Reason: reflux) Qty: 90 RF: 4 zolpidem 10 mg tablet 10 mg PO QHS PRN (Reason: insomnia) Qty: 90 RF: 2 multivitamin [Once Daily] 1 EACH tablet 1 tab PO DAILY RF: 0 acetaminophen [Tylenol] 325 MG tablet 2 tab PO PRN RF: 0 (DME) lancets 1 EACH misc 1 ea Miscellaneous QID Qty: 400 RF: 4 clotrimazole-betamethasone [Lotrisone] 45 GM cream 1 autumn Topical BID PRNQty: 45 RF: 12 (DME) Blood Glucose Test Strip See Rx Instructions .ROUTE .MEDSUPPLY Qty: 100 RF: 5 (DME) blood-glucose meter Misc See Rx Instructions .MEDSUPPLY Qty: 1 RF: 0 Discharge Instructions Instructions: Heart Palpitations (ED) Additional Instructions: Work-up in the ER does not reveal any obvious emergent process. Holter monitor placed in the next 48 hours, please follow the instructions given to by the respiratory therapy team. Continue taking all of your medications as directed. Please watch for new or worsening symptoms and return to the ER for any concerns. I would like you to contact both your primary care provider and your cardiology team tomorrow to discuss your ongoing symptoms, and need for outpatient reevaluation. Discharge Data Discharge Date/Time-TO BE ENTERED AT DEPARTURE: 08/10/21 13:50 Medical Decision Making This is a 75-year-old gentleman, takes apixaban daily, past medical history extensive for cardiac disease including CABG, proximal A. fib, stent placement, presenting to the ER today reporting he believes he went into A. fib yesterday and early this morning for at least 3-4 hours which is longer than he typically does, took his morning medications today around 630 and has been asymptomatic ever since. Patient states that he is followed both by cardiology and his primary care team. Clinically he appears well, nontoxic, blood pressure of 158/52 pulse in the 70s, respiration 20, afebrile, O2 sat 99% on room air. He is currently not in A. fib. He is currently asymptomatic. Patient on both apixaban and metoprolol for his A. fib, reports that he may have missed a dose earlier in the week. Plan is to obtain IV access, initiate cardiac work-up including delta troponin, D-dimer, thyroid studies. Patient and family are comfortable with this plan and have no additional questions or concerns. Initial laboratory values are unremarkable for obvious emergent process. No evidence of leukocytosis or anemia. Coags unremarkable, D-dimer 275, will not pursue CTA of the chest. Electrolytes unremarkable, creatinine 1.1 with a GFR greater than 60. Initial troponin less than 0.05, TSH normal at 2.39. Chest x-ray unremarkable. Discussed initial work-up with patient and family. He remains asymptomatic. He has been on the cardiac monitoring since initial presentation, no evidence of arrhythmia. Patient is agreeable to awaiting a delta troponin. I will also set him up with a 2-day Holter monitor. Respiratory called and will set this up before he leaves. Repeat troponin remains less than 0.05. Patient remains asymptomatic. No evidence of arrhythmia while observed in the ER. He has no additional questions or concerns and is quite comfortable discharge. He will wear the Holter monitor as directed, contact both his primary care provider and cardiology team tomorrow for prompt outpatient reevaluation. Strict discharge and return precautions provided. This documentation was generated using Dragon dictation system, please disregard any oddities of phrase or misspellings. Medical Records Medical records reviewed: Yes I reviewed the patient's medical records. Imaging Data Radiologic Study: Attestation: I personally reviewed and interpreted this imaging study as follows: Imaging: X-Ray Radiologist's impression: PROCEDURE INFORMATION: Exam: XR Chest Exam date and time: 08/10/2021 9:40 AM Age: 75 years old Clinical indication: Other: Palpitations; Prior surgery; Surgery date: 6+ months; Surgery type: Open heart TECHNIQUE: Imaging protocol: XR of the chest. Views: 2 views. COMPARISON: CR XR CHEST 2V PA LATERAL 06/08/2018 17:48 FINDINGS: Scan quality: Exam is technically satisfactory. Tubes, catheters and devices: Sternal wires are present. Lungs: Lungs are clear with no infiltrate or nodule. Pleural spaces: Unremarkable. No pleural effusion. No pneumothorax. Heart/Mediastinum: Cardiomediastinal silhouette is normal. Vasculature: Pulmonary vessels are non-engorged. Bones/joints: The patient is noted to have prominent pericardial fat pads as on previous exam. IMPRESSION: No active cardiopulmonary disease. Lab Data Lab results reviewed: Yes I reviewed the patient's lab results. Labs: Laboratory Tests Range/Units 08/10/21 08/10/21 08/10/21 09:45 09:45 09:45 WBC (4.4-10.8) 10^3/uL 5.37 RBC (4.36-5.78) 10^6/uL 4.54 Hgb (13.5-17.5) g/dL 15.1 Hct (40.0-50.0) % 44.6 MCV (80-95) fL 98.2 H MCH (27.0-33.0) pg 33.3 H MCHC (32.0-36.0) % 33.9 RDW (11.8-14.1) % 13.0 Plt Count (130-400) 10^3/uL 153 MPV (8.0-11.0) fL 9.3 Immature Gran % 0.2 Neutrophils % 69.1 Lymphocytes % 19.6 Monocytes % 8.6 Eosinophils % 1.9 Basophils % 0.6 Nucleated RBC % % 0 Absolute Neutrophils (1.2-6.7) 10^3/uL 3.72 Absolute Lymphocytes (1.2-3.4) 10^3/uL 1.05 L Absolute Monocytes (0.1-0.8) 10^3/uL 0.46 Absolute Eosinophils (0.0-0.7) 10^3/uL 0.10 Absolute Basophils (0.0-0.2) 10^3/uL 0.03 PT Cancelled INR Cancelled APTT Cancelled D-Dimer Cancelled Sodium (136-145) mmol/L 140 Potassium (3.5-5.1) mmol/L 3.9 Chloride (98-107) mmol/L 103 Carbon Dioxide (21.0-32.0) mmol/L 26.9 Anion Gap (3-11) mmol/L 10.1 BUN (7-18) mg/dL 25 H Creatinine (0.70-1.30) mg/dL 1.1 Estimated GFR/1.73 m2 (mL/min/1.73m2) >= 60.00 Glucose (74-106) mg/dL 213 H Calcium (8.5-10.1) mg/dL 9.4 Magnesium (1.8-2.4) mg/dL 1.8 Total Bilirubin (0.2-1.0) mg/dL 0.7 AST (15-37) U/L 33 ALT (16-63) U/L 60 Alkaline Phosphatase (46-116) U/L 76 Troponin I (<0.06) ng/mL < 0.05 Total Protein (6.4-8.2) g/dL 7.3 Albumin (3.4-5.0) g/dL 4.0 TSH (0.36-3.74) uIU/mL 2.39 Range/Units 08/10/21 08/10/21 10:08 12:50 WBC (4.4-10.8) 10^3/uL RBC (4.36-5.78) 10^6/uL Hgb (13.5-17.5) g/dL Hct (40.0-50.0) % MCV (80-95) fL MCH (27.0-33.0) pg MCHC (32.0-36.0) % RDW (11.8-14.1) % Plt Count (130-400) 10^3/uL MPV (8.0-11.0) fL Immature Gran % Neutrophils % Lymphocytes % Monocytes % Eosinophils % Basophils % Nucleated RBC % % Absolute Neutrophils (1.2-6.7) 10^3/uL Absolute Lymphocytes (1.2-3.4) 10^3/uL Absolute Monocytes (0.1-0.8) 10^3/uL Absolute Eosinophils (0.0-0.7) 10^3/uL Absolute Basophils (0.0-0.2) 10^3/uL PT 11.0 INR 1.1 APTT 27.4 D-Dimer 275 Sodium (136-145) mmol/L Potassium (3.5-5.1) mmol/L Chloride (98-107) mmol/L Carbon Dioxide (21.0-32.0) mmol/L Anion Gap (3-11) mmol/L BUN (7-18) mg/dL Creatinine (0.70-1.30) mg/dL Estimated GFR/1.73 m2 (mL/min/1.73m2) Glucose (74-106) mg/dL Calcium (8.5-10.1) mg/dL Magnesium (1.8-2.4) mg/dL Total Bilirubin (0.2-1.0) mg/dL AST (15-37) U/L ALT (16-63) U/L Alkaline Phosphatase (46-116) U/L Troponin I (<0.06) ng/mL < 0.05 Total Protein (6.4-8.2) g/dL Albumin (3.4-5.0) g/dL TSH (0.36-3.74) uIU/mL ECG Data Attestation: I personally reviewed and interpreted this ECG (s) as follows: Prior ECG tracings: available for review Interpretation: Please see official report by Dr. Bass. sinus rhythm, ventricular rate of 75. Q waves in lead II-III-aVF. Minimal ST elevation in V1 through 4. Appears chronic in nature, no dynamic changes when compared to previous EKG HPI General Mode of arrival: ambulatory. Date/Time Provider Initiated Documentation: 08/10/21 09:26. Limitations to Documentation: no limitations. Information obtained by: patient and family. HPI Narrative: This is a 75-year-old gentleman, past medical history that includes occasional A. fib, on apixaban, CAD, status post CABG and stent placed, diabetes, sleep apnea, presenting to the ER reporting palpitations that occurred yesterday and early this morning that lasted longer than they typically do. Patient believes that he was in A. fib, felt his heart racing and left-sided chest pressure while his heart was racing, had 2 separate episodes that lasted roughly 3-4 hours. Patient states that this morning he took his regular medications as he typically does and soon after the medication was taken he was asymptomatic, around 6:30 AM. He does admit that he possibly missed a dose of his medication sometime last week. Patient denies any recent illness or trauma. He denies headache, neck pain, chest pain, shortness of breath, back pain, abdominal pain, nausea vomiting, change in bowel or bladder function or numbness, tingling, weakness, pain or swelling in his legs. Related Data Home Medications Medication Instructions Recorded Confirmed acetaminophen [Tylenol] 2 tab PO PRN tab-cap 01/27/13 08/10/21 lancets #400 ea 01/27/13 08/10/21 multivitamin [Once Daily] 1 tab PO DAILY 01/27/13 08/10/21 clotrimazole-betamethasone 1 autumn TOPICAL BID PRN #45 gm 09/04/13 08/10/21 [Lotrisone] canagliflozin 300 mg tablet 300 mg PO QAM #90 tab 06/24/20 08/10/21 aspirin 81 mg tablet,delayed 81 mg PO DAILY #1 tab 09/17/20 08/10/21 release blood sugar diagnostic #100 each 12/13/20 08/10/21 nystatin 100,000 unit/gram topical 1 applic TOPICAL DAILY PRN #30 g 01/02/21 08/10/21 cream blood-glucose meter #1 ea 06/23/21 08/10/21 apixaban 5 mg tablet 5 mg PO BID #180 tab 07/01/21 08/10/21 atorvastatin 80 mg tablet 80 mg PO DAILY #90 tab-cap 07/01/21 08/10/21 ezetimibe 10 mg tablet 10 mg PO DAILY #90 tab 07/01/21 08/10/21 lisinopril 40 mg tablet 40 mg PO DAILY #90 tab 07/01/21 08/10/21 metoprolol succinate 100 mg 100 mg PO DAILY #90 tab-cap 07/01/21 08/10/21 tablet,extended release 24 hr metoprolol succinate 50 mg 50 mg PO DAILY #90 tab 07/01/21 08/10/21 tablet,extended release 24 hr pantoprazole 40 mg tablet,delayed 40 mg PO Q48 H PRN #90 tab-cap 07/01/21 08/10/21 release MDD 1 zolpidem 10 mg tablet 10 mg PO QHS PRN #90 tab 07/01/21 08/10/21 Previous Rx's Medication Instructions Recorded canagliflozin 300 mg tablet 300 mg PO QAM #90 tab 06/24/20 aspirin 81 mg tablet,delayed 81 mg PO DAILY #1 tab 09/17/20 release blood sugar diagnostic #100 each 12/13/20 nystatin 100,000 unit/gram topical 1 applic TOPICAL DAILY PRN #30 g 01/02/21 cream blood-glucose meter #1 ea 06/23/21 apixaban 5 mg tablet 5 mg PO BID #180 tab 07/01/21 atorvastatin 80 mg tablet 80 mg PO DAILY #90 tab-cap 07/01/21 ezetimibe 10 mg tablet 10 mg PO DAILY #90 tab 07/01/21 lisinopril 40 mg tablet 40 mg PO DAILY #90 tab 07/01/21 metoprolol succinate 100 mg 100 mg PO DAILY #90 tab-cap 07/01/21 tablet,extended release 24 hr metoprolol succinate 50 mg 50 mg PO DAILY #90 tab 07/01/21 tablet,extended release 24 hr pantoprazole 40 mg tablet,delayed 40 mg PO Q48 H PRN #90 tab-cap 07/01/21 release MDD 1 zolpidem 10 mg tablet 10 mg PO QHS PRN #90 tab 07/01/21 Allergies Allergy/AdvReac Type Severity Reaction Status Date / Time cefuroxime Allergy Intermediate RASH AND Unverified 07/25/21 13:14 LOW GRADE FEVER Sulfa (Sulfonamide Allergy Unknown Unverified 07/25/21 13:14 Antibiotics) metformin AdvReac Severe Diarrhea Verified 07/25/21 13:14 General Stated Complaint: Palpitatns MICHAEL: 2 Review of Systems Constitutional Constitutional: Denies fatigue, Denies fever(s), Denies headache(s) and Denies weakness Eyes Eyes: Denies change in vision ENT Ears, Nose, Mouth, and Throat: Denies headache(s) and Denies neck pain Cardiovascular Cardiovascular: Reports chest pain (Denies pain, reports pressure), Reports palpitations and Denies dyspnea Respiratory Respiratory: Denies cough and Denies dyspnea Gastrointestinal Gastrointestinal: Denies abdominal pain, Denies nausea and Denies vomiting Genitourinary Genitourinary: Denies dysuria Musculoskeletal Musculoskeletal: Denies back pain, Denies neck pain, Denies numbness and Denies tingling Integumentary/Breasts Skin/Breast: Denies rash Neurologic Neurologic: Denies headache(s), Denies numbness, Denies tingling and Denies weakness Endocrine Endocrine: Denies fatigue and Reports palpitations Hematologic/Lymphatic Hematologic/Lymphatic: Reports easy bleeding and Reports easy bruising [facility] Medical History (Updated 08/10/21 @ 13:31 by CHRISTOPH Figueroa) Acute pain of right knee (07/13/16) Atherosclerosis (06/06/13) Cardiac arrest 02/13-Vfib; stent placed in left main CABG 2004 2005 MPI showed mild circ ischemia, neg. 2007 Atherosclerosis of [place] coronary artery of [place] heart without angina pectoris Benign prostatic hyperplasia with UTI's Cataract 03/17/17 [facility] Chest pain (11/16/12) [facility] [place]; THERE IS ECHOCARDIOGRAPHIC EVIDENCE FOR AN AREA OF BASEL INFEROSEPTAL ISCHEMIA AT PEAK STRESS. Chest pain (11/16/12) Chronic pain of right thumb (06/29/17) Chronic right shoulder pain (07/13/16) Diabetes mellitus (02/06/13) Diverticulosis of colon without diverticulitis DM (diabetes mellitus) Family history of ischemic heart disease Hyperlipidemia (06/06/13) Insomnia (04/05/14) Low back pain left DONOVAN (obstructive sleep apnea) Peptic reflux disease Peptic reflux disease mild Sleep apnea in adult (03/29/17) Tubular adenoma (06/08/17) T.A.; hyperplastic polyp positive Family hx of polyps and cancer 06/08/17 DR. VELA UTI (urinary tract infection) Surgical History Colonoscopy - MAC (06/08/17) Coronary Artery Bypass [place] (CABG) (~2004) Coronary Stent (~2014) Status post coronary artery bypass graft Status post coronary artery stent placement Stent placement (~2005) Family History Father Heart disease Angina pectoris Mother No problems noted. Sister No problems noted. Sister No problems noted. Brother No problems noted. Son No problems noted. Daughter No problems noted. Social History Smoking/Tobacco Use Status: Never Second Hand Exposure: Yes Smoking risk assessment performed?: Yes Alcohol Intake: current Alcohol Intake frequency: holidays/special occasions only Alcohol type: beer and wine Drug use: Never Substance use type: does not use Caregiver/Support person: No Household members: spouse Communication Needs: Corrective Lenses Do you need help understanding health information?: Never Pets and animals: No Sexually active: No Do you think of yourself as: straight/heterosexual Current gender identity: male What is your relationship status?: How often do you talk on the phone with friends or family?: once per week How often do you get together with friends or relatives?: decline to answer How often do you attend oriental orthodox or hinduism services?: 4 or more times per year Do you belong to any clubs or organized social groups?: yes Panel score (0-1 are the most socially isolated patients): 3 What type of physical activity do you participate in: decline to answer Duration: < 15 minutes/day Frequency: 1-2 times per week Valentina/Druze: None Special valentina needs: No Seatbelt use: always Helmet use: No Drive intox or ride w/intox day haul or farm charter bus driver: No Do you feel safe at home: Yes Do you feel safe in your relationship?: Yes Exam Const General: cooperative, healthy appearing, comfortable and no acute distress Orientation: alert, awake and oriented x3 HENMT Head: normal to inspection, normocephalic and atraumatic Face and sinus: normal facial exam Mouth: moist mucous membranes Eyes General: appearance normal, both eyes and all related structures Conjunctivae: conjunctivae normal Neck Neck: normal visual inspection, full ROM, no meningeal signs, trachea midline and supple Chest Chest: normal inspection of the chest and normal palpation of entire chest wall Resp Effort & Inspection: normal respiratory effort and able to speak in complete sentences Auscultation: clear to auscultation bilaterally Cardio Rate: regular rate Rhythm: regular rhythm GI Inspection: normal to inspection Palpation: soft, not firm, no guarding, no pulsatile masses and nontender Auscultation: normal bowel sounds Back/Spine/Pelvis Back: no CVA tenderness and No back tenderness Skin General skin exam: no rashes or lesions noted Neuro General: patient alert, patient awake, moves all extremities and no focal motor deficits Cognition: normal cognition Speech: speech normal Gait: normal gait Motor: muscle tone normal throughout Sensory Exam: no sensory deficits noted Extrem General: normal to inspection, full ROM, capillary refill normal, no pedal edema and no calf tenderness Psych Appearance: grossly normal Mental Status: mental status grossly normal Course Vital Signs Vital signs: Vital Signs Temperature 36.6 C 08/10/21 09:30 Pulse 76 08/10/21 09:30 Respiratory Rate 20 08/10/21 09:30 Blood Pressure 158/52 H 08/10/21 09:30 Pulse Oximetry 99 08/10/21 09:30 Temperature 36.6 C 08/10/21 09:30 Temperature Source Temporal Artery Scan 08/10/21 09:30 Pulse 76 08/10/21 09:30 Respiratory Rate 20 08/10/21 09:30 Blood Pressure 158/52 H 08/10/21 09:30 Blood Pressure Position Supine 08/10/21 09:30 Pulse Oximetry 99 08/10/21 09:30 Oxygen Delivery Method Room Air 08/10/21 09:30 Oxygen Flow Rate 0 08/10/21 09:30 Pain Level 0 08/10/21 09:30
[2021-08-10] MEDS: Normal Saline 1,000 ML 150 ML IV (09:52)
[2021-08-10 09:58] LABS: Abs Immature Grans 0.01 10^3/uL (0.0-0.06); Absolute Basophil Count 0.03 10^3/uL (0.0-0.2); Absolute Lymphocyte Count 1.05 10^3/uL (1.2-3.4); Absolute Monocyte Count 0.46 10^3/uL (0.1-0.8); Absolute Neutrophil Count 3.72 10^3/uL (1.2-6.7); Basophils % 0.6; Eosinophils % 1.9; HCT 44.6 % (40.0-50.0); HGB 15.1 g/dL (13.5-17.5); Immature Grans % 0.2; Lymphocytes % 19.6; MCH 33.3 pg (27.0-33.0); MCHC 33.9 % (32.0-36.0); MCV 98.2 fL (80-95); MPV 9.3 fL (8.0-11.0); Monocytes % 8.6; Neutrophils % 69.1; Nucleated RBC 0 %; Platelet Count 153 10^3/uL (130-400); RBC 4.54 10^6/uL (4.36-5.78); RDW-SD 46.4 fL; WBC 5.37 10^3/uL (4.4-10.8)
[2021-08-10 10:21] LABS: ALT 60 U/L (16-63); AST 33 U/L (15-37); Alkaline Phosphatase 76 U/L (46-116); Anion Gap 10.1 mmol/L (3-11); BUN 25 mg/dL (7-18); Bilirubin, Total 0.7 mg/dL (0.2-1.0); CO2 26.9 mmol/L (21.0-32.0); CREATININE 1.1 mg/dL (0.70-1.30); Calcium 9.4 mg/dL (8.5-10.1); Chloride 103 mmol/L (98-107); Glucose 213 mg/dL (74-106); Magnesium 1.8 mg/dL (1.8-2.4); Potassium 3.9 mmol/L (3.5-5.1); Sodium 140 mmol/L (136-145); TSH (W/Ref FT4) 2.39 uIU/mL (0.36-3.74); Total Protein 7.3 g/dL (6.4-8.2); Troponin I < 0.05 ng/mL (<0.06)
[2021-08-10 10:31] LABS: INR 1.1 (0.9-1.1); PTT Activated 27.4 sec (21.0-27.5)
[2021-08-10 10:43] LABS: D-Dimer 275 ng/mlFEU (<500)
--- NOTE | 2021-08-10 10:57 | DI.VRAD_ITS ---
PROCEDURE INFORMATION: Exam: XR Chest Exam date and time: 08/10/2021 9:40 AM Age: 75 years old Clinical indication: Other: Palpitations; Prior surgery; Surgery date: 6+ months; Surgery type: Open heart TECHNIQUE: Imaging protocol: XR of the chest. Views: 2 views. COMPARISON: CR XR CHEST 2V PA LATERAL 06/08/2018 17:48 FINDINGS: Scan quality: Exam is technically satisfactory. Tubes, catheters and devices: Sternal wires are present. Lungs: Lungs are clear with no infiltrate or nodule. Pleural spaces: Unremarkable. No pleural effusion. No pneumothorax. Heart/Mediastinum: Cardiomediastinal silhouette is normal. Vasculature: Pulmonary vessels are non-engorged. Bones/joints: The patient is noted to have prominent pericardial fat pads as on previous exam. IMPRESSION: No active cardiopulmonary disease. Dictated and Authenticated by: Carlton Taylor MD. Ordering:SENG De La Vega MD
[2021-08-10 13:15] LABS: Troponin I < 0.05 ng/mL (<0.06)
== END 2021-08-10 13:50 | disposition home or self-care (01) ==
PROVIDERS: Emergency Provider Physician Assistant; PCP Family Medicine
DX: R00.2 Palpitations (principal); R07.89 Other chest pain; Z79.01 Long term (current) use of anticoagulants; I48.91 Unspecified atrial fibrillation; Z95.1 Presence of aortocoronary bypass graft; Z95.5 Presence of coronary angioplasty implant and graft; I25.10 Atherosclerotic heart disease of native coronary artery without angina pectoris
CPT/HCPCS: 36415; 80053; 93005; 96360; 96361; 99285; 71046; 83735; 84443; 84484; 85025; 85379; 85610; 85730; 93010; 93225

== ENCOUNTER 2021-08-10 10:38 | Outpatient (RCR) | payer MEDICARE, OTHER, SELFPAY ==
--- NOTE | 2021-08-10 10:30 | HOLTER_ITS ---
APPROVED REPORT Conclusion This is a 48-hour Holter monitor reportedly ordered for palpitations and chest pressure Predominant rhythm is sinus with an average heart rate of 87. Minimum was 51, maximum 100 There were rare ventricular ectopic beats There were occasional atrial premature beats 7 self-limited atrial runs occurred. The longest of these was 10 beats in duration There was no atrial fibrillation, no high-grade AV block, no pauses greater than 3 seconds No patient symptoms were reported
== END 2021-08-10 23:59 | disposition home or self-care (01) ==
LOC: RT 10:38
PROVIDERS: PCP Family Medicine; Visit Provider Family Medicine
DX: R00.2 Palpitations (principal); R07.89 Other chest pain
CPT/HCPCS: 93225

== ENCOUNTER 2021-08-12 17:13 | Outpatient (RCR) | payer MEDICARE, OTHER, SELFPAY | END 2021-09-09 23:59 | disposition home or self-care (01) | LOC: RT 17:13 | PROVIDERS: PCP Family Medicine; Referring Provider Family Medicine; Visit Provider Internal Medicine Cardiovascular Disease | DX: R00.2 Palpitations (principal); R07.89 Other chest pain; I49.1 Atrial premature depolarization | CPT/HCPCS: 93227; 93226 ==

== ENCOUNTER → 2021-09-29 09:49 | Outpatient (BNVA) | payer MEDICARE, OTHER, SELFPAY | PROVIDERS: PCP Family Medicine; Referring Provider Family Medicine; Visit Provider Internal Medicine Cardiovascular Disease | DX: I70.90 Unspecified atherosclerosis (principal); E78.5 Hyperlipidemia, unspecified; R00.2 Palpitations | CPT/HCPCS: 99214; 99213 ==

== ENCOUNTER → 2022-04-02 09:52 | Outpatient (BNVA) | payer MEDICARE, SELFPAY | PROVIDERS: PCP Family Medicine; Referring Provider Family Medicine; Visit Provider Internal Medicine Cardiovascular Disease | DX: I25.10 Atherosclerotic heart disease of native coronary artery without angina pectoris (principal); I70.90 Unspecified atherosclerosis; R00.2 Palpitations; E78.5 Hyperlipidemia, unspecified | CPT/HCPCS: 99214; 99213 ==

== ENCOUNTER 2022-07-30 03:46 | Outpatient (CLI) | payer MEDICARE, SELFPAY ==
[2022-07-30 12:48] LABS: Hemoglobin A1C 7.5 % (<5.7)
[2022-07-30 12:54] LABS: COMMENT (LAB VIEW ONLY) 52.98 mg/dL; Microalb ug/mg Crea 16.2 ug/mg Cr
[2022-07-30 14:31] LABS: ALT 64 U/L (16-63); AST 29 U/L (15-37); Albumin 4.1 g/dL (3.4-5.0); Alkaline Phosphatase 74 U/L (46-116); Anion Gap 10.2 mmol/L (3-11); BUN 23 mg/dL (7-18); Bilirubin, Total 0.8 mg/dL (0.2-1.0); CO2 27.8 mmol/L (21.0-32.0); Calculated LDL 38 mg/dL (<100); Chloride 105 mmol/L (98-107); Cholesterol 103 mg/dL (<200); Estimated GFR 77.04 (mL/min/1.73m2); Glucose 190 mg/dL (74-106); HDL Cholesterol 44 mg/dL (40-60); Potassium 4.1 mmol/L (3.5-5.1); Sodium 143 mmol/L (136-145); TSH (W/Ref FT4) 3.53 uIU/mL (0.36-3.74); Total Protein 7.5 g/dL (6.4-8.2); Triglyceride 109 mg/dL (<150)
== END 2022-07-30 03:47 | disposition home or self-care (01) ==
LOC: LOS 03:46
PROVIDERS: PCP Family Medicine; Visit Provider Family Medicine
DX: E11.9 Type 2 diabetes mellitus without complications (principal); I70.90 Unspecified atherosclerosis; R07.9 Chest pain, unspecified; R63.4 Abnormal weight loss
CPT/HCPCS: 36415; 80053; 80061; 82043; 82570; 83036; 84443

== ENCOUNTER 2022-09-25 13:19 | Outpatient (CLI) | payer MEDICARE, SELFPAY ==
--- NOTE | 2022-09-25 13:15 | RT.EKG_ITS ---
APPROVED REPORT Exam: Resting ECG Reason for Exam: chest pressure Patient Location: O HR:98 bpm ECG Measurements Heart Rate 98 AXIS FL [id number] P [id number] QRSd 101 QRS 6 QT 323 T -35 QTc 413 Conclusion Atrial fibrillation...V-rate 82-112, irreg A-activity Possible inferior infarct, age indeterminate...Q>35mS, T neg, II III aVF
== END 2022-09-25 13:20 | disposition home or self-care (01) ==
LOC: DI.CM 13:20
PROVIDERS: PCP Family Medicine; Visit Provider Family Medicine
DX: R07.89 Other chest pain (principal); R94.31 Abnormal electrocardiogram [ECG] [EKG]; I48.91 Unspecified atrial fibrillation; I25.2 Old myocardial infarction
CPT/HCPCS: 93010

== ENCOUNTER 2022-10-26 01:40 | Outpatient (CLI) | payer MEDICARE, SELFPAY ==
--- NOTE | 2022-10-26 15:04 | DI.US_ITS ---
APPROVED REPORT EXAM: Comprehensive 2D, Doppler, and color-flow Echocardiogram Patient Location: Out-Patient Disease Case Manager: Carina Berger RDCS (AE) Indications: Chest pain, Aortic stenosis Other Information Study Quality: Fair. Technically limited study due to body habitus. Conclusion Normal left ventricular wall thickness and chamber size. Estimated ejection fraction is 55%. No seg mental wall motion abnormalities are noted Right ventricle is not well visualized Both atria appear normal in size The aortic valve is calcified and probably trileaflet. There is mild aortic stenosis. Peak gradient is 28, mean 14 mmHg. Calculated aortic valve area is 1.08 cm??. There is trace aortic regurgitatio n Mitral annular calcification. Thickened mitral leaflets. Trace to mild mitral regurgitation Normal tricuspid valve with mild regurgitation. Estimated right ventricular systolic pressure is 27 mmHg Wall motion Left Ventricle Technically limiting parasternal views. The overall left ventricular systolic function appears normal . There is normal LV segmental wall motion. There is no ventricular septal defect visualized. LVEF is 55%. Right Ventricle Right ventricle is not well visualized. Right ventricular systolic function could not be assessed. Atria The left atrium size is normal. The right atrium size is normal. The interatrial septum is intact wit h no evidence for an atrial septal defect. Aortic Valve Aortic valve is calcified. Aortic valve is probably trileaflet. Mild aortic stenosis. Peak aortic jose ve gradient is 27.7mmHg. Highest mean aortic valve gradient is 14.5mmHg. Calculated VIKTOR by the contin uity equation is 1.08cm2. Trace aortic regurgitation. Mitral Valve Moderate mitral annular calcification. Thickened mitral leaflets No evidence of mitral valve stenosis . Trace to mild mitral regurgitation. Tricuspid Valve The tricuspid valve is normal in structure. There is no tricuspid valve stenosis. Mild tricuspid reg urgitation. Pulmonic Valve The pulmonary valve is normal in structure. There is no pulmonic valvular stenosis. Trace pulmonic re gurgitation. Great Vessels The aortic root is normal in size. The ascending aorta is normal in size. Aortic arch is normal in ca liber. IVC is normal in size and collapses >50% with inspiration. Pericardium There is no pericardial effusion. 2D Dimensions Ao Root d 3.08 cm M: 3.1 - 3.7 LV Vol A2C d MOD 76.8 mL RA Area A4C 17.05 cm2 LV Vol A4C d MOD 90.3 mL RA Vol/ BSA A4C s A-L 25.3 mL/m2 LV EF A4C MOD 55.6 % Ao Asc Diam d 3.32 cm M: 2.6 - 3.4 LV EF A2C MOD 55.2 % LVEF (Borja's) 56.54 % M: 52 - 72 LV EF Biplane MOD 56.5 % LV Volume 65.49 mL M: 62 - 150 SV 48.51 mL LV Volume Index 34.46 mL/m2 M: 34 - 74 SV Index 25.55 mL/m2 LV Vol Biplane MOD 85.8 mL M-Mode TAPSE 2.01 cm (M/F) >1.7 LV Diastology MV E' medial 0.067 (>0.07 m/s) MV E Vmax 1.04 (0.4-1.3 m/s) LV E/e MED 15.35 (<14) MV E' lateral 0.142 (>0.1 m/s) LV E/e LAT 7.30 (<14) MV E/E' medial 15.40 MV E/E' lateral 7.33 Aortic Valve LVOT Area 3.48 cm2 AoV Area Vmax 1.08 cm2 LVOT Vmax 0.82 m/s AoV Area/ BSA (Vmax) 0.57 cm2/m2 LVOT Mean Rodrigue. 0.53 m/s VIKTOR Mean Rodrigue. 1.04 cm2 LVOT Peak Grad 2.7 mmHg VIKTOR Mean Rodrigue. Index 0.55 cm2/m2 LVOT Mean Grad 1.3 mmHg LVOT VTI 0.139 m LVOT Diam s 2.10 cm AoV Vmax 2.63 m/s Velocity Ratio 0.31 AoV Mean Rodrigue. 1.78 m/s AoV Peak Grad 27.7 mmHg LVOT SV 48.47 mL AoV Mean Grad 14.5 mmHg AoV VTI 0.538 m AoV Area VTI 0.90 cm2 AoV Area/ BSA (VTI) 0.47 cm/m2 Mitral Valve MV DT 194 (160-240 msec) MV PHT 56 msec MV Area PHT 3.92 cm2 MV VTI 0.223 m MV Area VTI 2.17 (4.0-6.0 cm2) Pulmonary Valve PV Vmax 1.16 (0.5-1.5 m/s) RVOT Peak Gr. 1.39 mmHg PV Peak Grad 5.4 mmHg RVOT Mean Gr. 0.70 mmHg PV Mean Grad 2.6 mmHg RVOT VTI 0.102 m PV VTI 0.214 m RVOT Vmax 0.59 m/s Tricuspid Valve TR Peak Grad 24.8 mmHg TR Vmax 2.49 m/s RA Pressure 3.00 mmHg RVSP (TR) 27.9 mmHg
== END 2022-10-26 02:00 ==
LOC: DI 01:40
PROVIDERS: PCP Family Medicine; Visit Provider Family Medicine
DX: I35.0 Nonrheumatic aortic (valve) stenosis (principal); R07.9 Chest pain, unspecified
CPT/HCPCS: 93306

== ENCOUNTER → 2022-10-30 09:35 | Outpatient (BNVA) | payer MEDICARE, SELFPAY | PROVIDERS: PCP Family Medicine; Referring Provider Family Medicine; Visit Provider Internal Medicine Cardiovascular Disease | DX: I35.0 Nonrheumatic aortic (valve) stenosis (principal); I25.10 Atherosclerotic heart disease of native coronary artery without angina pectoris; I48.91 Unspecified atrial fibrillation; Z79.01 Long term (current) use of anticoagulants | CPT/HCPCS: 99214 ==

== ENCOUNTER 2023-01-25 09:14 | Outpatient (CLI) | payer MEDICARE, SELFPAY ==
[2023-01-25 12:46] LABS: ALT 40 U/L (16-63); AST 22 U/L (15-37); Alkaline Phosphatase 69 U/L (46-116); Anion Gap 6.8 mmol/L (3-11); BUN 23 mg/dL (7-18); Bilirubin, Total 0.6 mg/dL (0.2-1.0); CO2 29.2 mmol/L (21.0-32.0); Calcium 9.3 mg/dL (8.5-10.1); Chloride 102 mmol/L (98-107); Estimated GFR 76.56 (mL/min/1.73m2); Glucose 176 mg/dL (74-106); Potassium 4.1 mmol/L (3.5-5.1); Sodium 138 mmol/L (136-145); Total Protein 7.3 g/dL (6.4-8.2)
[2023-01-25 12:59] LABS: Hemoglobin A1C 6.9 % (<5.7)
== END 2023-01-25 09:15 | disposition home or self-care (01) ==
LOC: LOS 09:15
PROVIDERS: PCP Family Medicine; Referring Provider Family Medicine; Visit Provider Family Medicine
DX: E11.9 Type 2 diabetes mellitus without complications (principal); R79.89 Other specified abnormal findings of blood chemistry
CPT/HCPCS: 36415; 80053; 83036

== ENCOUNTER → 2023-05-06 09:44 | Outpatient (BNVA) | payer MEDICARE, SELFPAY | PROVIDERS: PCP Family Medicine; Visit Provider Internal Medicine Cardiovascular Disease | DX: I25.810 Atherosclerosis of coronary artery bypass graft(s) without angina pectoris (principal); Z79.01 Long term (current) use of anticoagulants; I35.0 Nonrheumatic aortic (valve) stenosis; I48.91 Unspecified atrial fibrillation | CPT/HCPCS: 99214 ==

== ENCOUNTER 2023-08-16 12:16 | Outpatient (REF) | payer MEDICARE, SELFPAY ==
[2023-08-16 16:06] LABS: Microalb ug/mg Crea 19.3 ug/mg Cr
== END 2023-08-16 12:17 | disposition home or self-care (01) ==
LOC: LBN 12:16
PROVIDERS: PCP Family Medicine; Visit Provider Family Medicine
DX: E11.9 Type 2 diabetes mellitus without complications (principal)
CPT/HCPCS: 82043; 82570

== ENCOUNTER 2023-10-25 05:20 | Outpatient (CLI) | payer MEDICARE, SELFPAY ==
[2023-10-25 12:35] LABS: HCT 48.1 % (40.0-50.0); HGB 15.9 g/dL (13.5-17.5); MCH 33.1 pg (27.0-33.0); MCHC 33.1 % (32.0-36.0); MCV 100 fL (80-95); MPV 9.8 fL (8.0-11.0); Platelet Count 150 10^3/uL (130-400); RDW 13.5 % (11.8-14.1); RDW-SD 50.1 fL; WBC 5.16 10^3/uL (4.4-10.8)
[2023-10-25 12:52] LABS: ALT 47 U/L (16-63); AST 23 U/L (15-37); Albumin 3.8 g/dL (3.4-5.0); Alkaline Phosphatase 62 U/L (46-116); BUN 22 mg/dL (7-18); Bilirubin, Total 0.9 mg/dL (0.2-1.0); CREATININE 1.1 mg/dL (0.70-1.30); Calcium 9.4 mg/dL (8.5-10.1); Calculated LDL 38 mg/dL (<100); Chloride 105 mmol/L (98-107); Cholesterol 101 mg/dL (<200); Estimated GFR 68.29 (mL/min/1.73m2); Glucose 204 mg/dL (74-106); HDL Cholesterol 53 mg/dL (40-60); Potassium 3.8 mmol/L (3.5-5.1); Sodium 141 mmol/L (136-145); Triglyceride 50 mg/dL (<150)
== END 2023-10-25 05:21 | disposition home or self-care (01) ==
LOC: LOS 05:20
PROVIDERS: PCP Family Medicine; Visit Provider Family Medicine
DX: I10 Essential (primary) hypertension (principal); I48.91 Unspecified atrial fibrillation; E11.9 Type 2 diabetes mellitus without complications
CPT/HCPCS: 36415; 80053; 80061; 85027; 83036

== ENCOUNTER → 2023-11-04 09:52 | Outpatient (BNVA) | payer MEDICARE, SELFPAY | PROVIDERS: PCP Family Medicine; Visit Provider Internal Medicine Interventional Cardiology | DX: Z95.1 Presence of aortocoronary bypass graft (principal); I35.0 Nonrheumatic aortic (valve) stenosis; I48.91 Unspecified atrial fibrillation | CPT/HCPCS: 99213 ==

== ENCOUNTER 2024-03-30 14:20 | Emergency (ER) | payer MEDICARE, SELFPAY ==
[2024-03-30 14:26] VITALS: BP 123/62; PULSE 77; RESP 18; TEMP 36.6; O2SAT 97
--- NOTE | 2024-03-30 14:35 | W.ED.GENAD ---
Discharge Plan Disposition Patient Disposition: Home Condition: Improving Discharge Details Chief Complaint: RespSymp Clinical Impression: Upper respiratory infection, viral Primary Care Provider: Lulú Toribio ED Provider: Shady Brock Home Meds and New Rx's Prescriptions: No Action apixaban 5 mg tablet 5 mg PO BID Qty: 180 4RF atorvastatin [Lipitor] 80 mg tablet 80 mg PO DAILY Qty: 90 4RF Jardiance 25 mg tablet 25 mg PO QAM Qty: 90 5RF ezetimibe [Zetia] 10 mg tablet 10 mg PO DAILY Qty: 90 4RF liraglutide 0.6 mg/0.1 mL (18 mg/3 mL) pen injector 0.6 mg subcut DAILY Qty: 9 4RF (DME) pen needle, diabetic [BD Ultra-Fine Mini Pen Needle] 31 gauge x 3/16 needle See Rx Instructions .ROUTE .MEDSUPPLY Qty: 90 4RF Rx Instructions: Daily E11.9 trazodone 150 mg tablet 150 mg PO QHS Qty: 90 4RF aspirin 81 mg tablet,delayed release (DR/EC) 81 mg PO DAILY Qty: 1 0RF metoprolol succinate 100 mg tablet extended release 24 hr 100 mg PO DAILY Qty: 90 5RF metoprolol succinate 50 mg tablet extended release 24 hr 50 mg PO DAILY Qty: 90 5RF pantoprazole [Protonix] 40 mg tablet,delayed release (DR/EC) 40 mg PO Q48 H MDD 1 PRN (Reason: reflux) Qty: 90 4RF lisinopril 40 mg tablet 40 mg PO DAILY Qty: 90 5RF multivitamin [Once Daily] 1 EACH tablet 1 tab PO DAILY acetaminophen [Tylenol] 325 MG tablet 2 tab PO PRN clotrimazole-betamethasone [Lotrisone] 45 GM cream 1 autumn Topical BID PRNQty: 45 (DME) blood-glucose meter Misc See Rx Instructions .MEDSUPPLY Qty: 1 0RF Rx Instructions: Free Style meter.Meter bid testing prn nystatin 100,000 unit/gram cream 1 applic topical DAILY PRN (Reason: rash) Qty: 30 4RF (DME) Blood Glucose Test Strip See Rx Instructions .ROUTE .MEDSUPPLY Qty: 100 5RF Rx Instructions: daily . Free Style .E11.9 (DME) lancets 28 gauge misc See Rx Instructions Miscellaneous QID Qty: 100 4RF Rx Instructions: E11.9 DAily testing Use with free style meter Discharge Instructions Instructions: Viral Upper Respiratory Infection, Adult (DC) HPI General Date/Time Provider Initiated Documentation: 03/30/24 14:22. HPI Narrative: 78-year-old male presents with both experiencing multiple weeks of sneezing coughing runny nose sore throat and phlegm. Patient endorses feeling on the mend's currently. Related Data Home Medications Medication Instructions Recorded Confirmed acetaminophen 325 mg tablet 2 tab PO PRN 01/27/13 03/30/24 (Tylenol) multivitamin (Once Daily tablet) 1 tab PO DAILY 01/27/13 03/30/24 clotrimazole-betamethasone 1 1 autumn topical BID PRN #45 grams 09/04/13 03/30/24 %-0.05 % topical cream (Lotrisone) aspirin 81 mg tablet,delayed 81 mg PO DAILY #1 tab 09/17/20 03/30/24 release blood-glucose meter #1 ea 12/09/21 03/30/24 nystatin 100,000 unit/gram topical 1 applic topical DAILY PRN rash 09/11/22 03/30/24 cream #30 grams blood sugar diagnostic (Blood #100 ea 03/02/23 03/30/24 Glucose Test strips) lancets 28 gauge #100 ea 03/04/23 03/30/24 lisinopril 40 mg tablet 40 mg PO DAILY #90 tabs 08/16/23 03/30/24 metoprolol succinate 100 mg 100 mg PO DAILY #90 tab-caps 08/16/23 03/30/24 tablet,extended release 24 hr metoprolol succinate 50 mg 50 mg PO DAILY #90 tabs 08/16/23 03/30/24 tablet,extended release 24 hr pantoprazole 40 mg tablet,delayed 40 mg PO Q48 H PRN reflux #90 08/16/23 03/30/24 release (Protonix) tab-caps apixaban 5 mg tablet 5 mg PO BID #180 tabs 11/08/23 03/30/24 atorvastatin 80 mg tablet (Lipitor) 80 mg PO DAILY #90 tab-caps 11/08/23 03/30/24 empagliflozin 25 mg tablet 25 mg PO QAM #90 tabs 11/08/23 03/30/24 (Jardiance) ezetimibe 10 mg tablet (Zetia) 10 mg PO DAILY #90 tabs 11/08/23 03/30/24 liraglutide 0.6 mg/0.1 mL (18 mg/3 0.6 mg (0.1 mL) subcut DAILY #9 mL 11/08/23 03/30/24 mL) subcutaneous pen injector pen needle, diabetic 31 gauge x #90 ea 11/08/23 03/30/24 3/16 (BD Ultra-Fine Mini Pen Needle) trazodone 150 mg tablet 150 mg PO QHS #90 tabs 11/08/23 03/30/24 Previous Rx's Medication Instructions Recorded aspirin 81 mg tablet,delayed 81 mg PO DAILY #1 tab 09/17/20 release blood-glucose meter #1 ea 12/09/21 nystatin 100,000 unit/gram topical 1 applic topical DAILY PRN rash 09/11/22 cream #30 grams blood sugar diagnostic (Blood #100 ea 03/02/23 Glucose Test strips) lancets 28 gauge #100 ea 03/04/23 lisinopril 40 mg tablet 40 mg PO DAILY #90 tabs 08/16/23 metoprolol succinate 100 mg 100 mg PO DAILY #90 tab-caps 08/16/23 tablet,extended release 24 hr metoprolol succinate 50 mg 50 mg PO DAILY #90 tabs 08/16/23 tablet,extended release 24 hr pantoprazole 40 mg tablet,delayed 40 mg PO Q48 H PRN reflux #90 08/16/23 release (Protonix) tab-caps apixaban 5 mg tablet 5 mg PO BID #180 tabs 11/08/23 atorvastatin 80 mg tablet (Lipitor) 80 mg PO DAILY #90 tab-caps 11/08/23 empagliflozin 25 mg tablet 25 mg PO QAM #90 tabs 11/08/23 (Jardiance) ezetimibe 10 mg tablet (Zetia) 10 mg PO DAILY #90 tabs 11/08/23 liraglutide 0.6 mg/0.1 mL (18 mg/3 0.6 mg (0.1 mL) subcut DAILY #9 mL 11/08/23 mL) subcutaneous pen injector pen needle, diabetic 31 gauge x #90 ea 11/08/23 3/16 (BD Ultra-Fine Mini Pen Needle) trazodone 150 mg tablet 150 mg PO QHS #90 tabs 11/08/23 Allergies Allergy/AdvReac Type Severity Reaction Status Date / Time cefuroxime Allergy Intermediate RASH AND Verified 03/30/24 14:30 LOW GRADE FEVER Sulfa (Sulfonamide Allergy Unknown Hives Verified 03/30/24 14:30 Antibiotics) metformin AdvReac Severe Diarrhea Verified 03/30/24 14:30 General Stated Complaint: RespSymp MICHAEL: 4 Review of Systems Narrative: Review of Systems Constitutional: negative Eyes: negative ENT: negative Cardiovascular: negative Respiratory: Cough runny nose Gastrointestinal: negative : negative Musculoskeletal: negative Skin: negative Neurologic: negative Psych: negative Exam Narrative Exam Narrative: Physical Examination General: alert, awake, cooperative, resting comfortably, no acute distress HEENT: normocephalic, atraumatic; PERRL, EOM intact, conjunctiva normal; no nasal discharge; moist mucous membranes, oral and pharyngeal mucosa normal, tolerating secretions Neck: supple, trachea midline; full ROM Chest: normal to inspection Respiratory: normal respiratory effort, speaking in full sentences, clear to auscultation, no wheezing, rales or rhonchi Cardiac: regular rate, regular rhythm, S1S2 intact, no murmurs rubs or gallops GI: abdomen soft, non-tender, non-distended; no palpable mass or hepatosplenomegaly Skin: no lesions, rashes or trauma appreciated Neuro: AAOx3, normal speech, moving all extremities Psych: Appropriate mood and affect Course Vital Signs Vital signs: Vital Signs Temperature 36.6 C 03/30/24 14:26 Pulse 77 03/30/24 14:26 Respiratory Rate 18 03/30/24 14:26 Blood Pressure 123/62 03/30/24 14:26 Pulse Oximetry 97 03/30/24 14:26 Temperature 36.6 C 03/30/24 14:26 Temperature Source Temporal Artery Scan 03/30/24 14:26 Pulse 77 03/30/24 14:26 Respiratory Rate 18 03/30/24 14:26 Respiratory Effort Normal, Non-Labored 03/30/24 14:30 Blood Pressure 123/62 03/30/24 14:26 Blood Pressure Position Sitting 03/30/24 14:26 Pulse Oximetry 97 03/30/24 14:26 Oxygen Delivery Method Room Air 03/30/24 14:26 Oxygen Flow Rate 0 03/30/24 14:26 Medical Decision Making 78-year-old male presents with both experiencing 2 weeks of runny nose cough sore throat, sneezing, patient afebrile nontoxic speaking full sentences lungs clear bilaterally, symptoms resolving over the last couple of days. Likely viral illness versus seasonal allergies lower suspicion for bacterial pneumonia or cardiac etiology. Will send flu COVID RSV as well as strep swab. Symptomatic care at home with home care instructions and return precautions to be given 16: 09 resting comfortably no acute distress. Quality:SDOH Health Related Social Needs: No Data to Display PFSH All Active Problems (Updated 03/30/24 @ 16:09 by Shady Brock MD) Upper respiratory infection, viral (Acute) Elevated LFTs (Acute) Aortic stenosis (Chronic) Diabetes mellitus (Chronic 02/06/13) Hyperlipidemia (Chronic 06/06/13) Insomnia (Chronic 04/05/14) Sleep apnea in adult (Chronic 03/29/17) Depressive disorder (Acute 11/28/08) Atrial fibrillation with controlled ventricular rate (Chronic) Medical History Atherosclerosis (06/06/13) Cardiac arrest 02/13-Vfib; stent placed in left main CABG 2004 2005 MPI showed mild circ ischemia, neg. 2007 Tubular adenoma (06/08/17) T.A.; hyperplastic polyp positive Family hx of polyps and cancer 06/08/17 DR. VELA Low back pain left Diverticulosis of colon without diverticulitis Chronic right shoulder pain (07/13/16) Chronic pain of right thumb (06/29/17) Benign prostatic hyperplasia with UTI's Cataract 03/17/17 [facility] Chest pain (11/16/12) Family history of ischemic heart disease UTI (urinary tract infection) Peptic reflux disease Atherosclerosis of [place] coronary artery of [place] heart without angina pectoris DM (diabetes mellitus) DONOVAN (obstructive sleep apnea) Surgical History Status post coronary artery bypass graft Status post coronary artery stent placement Stent placement (~2005) Coronary Stent (~2014) Colonoscopy - MAC (06/08/17) Coronary Artery Bypass [place] (CABG) (~2004) Family History Father Heart disease Angina pectoris Mother No problems noted. Sister No problems noted. Sister No problems noted. Brother No problems noted. Son No problems noted. Daughter No problems noted. Social History Smoking/Tobacco Use Status: Never Second Hand Exposure: Yes Smoking risk assessment performed?: Yes Alcohol Intake: current Alcohol Intake frequency: holidays/special occasions only Alcohol type: beer and wine Drug use: Never Substance use type: does not use Adopted: No Caregiver/Support person: No Foster care: No Household members: spouse Housing: house Number of Children: 2 number of grandchildren: 3 Communication Needs: Corrective Lenses Education Level: high school Do you need help understanding health information?: Never Pets and animals: No Sexually active: No Do you think of yourself as: straight/heterosexual Current gender identity: male What is your relationship status?: How often do you talk on the phone with friends or family?: twice per week How often do you get together with friends or relatives?: twice per week How often do you attend caodaism or gnosticist services?: 4 or more times per year Do you belong to any clubs or organized social groups?: yes Panel score (0-1 are the most socially isolated patients): 4 What type of physical activity do you participate in: none Frequency: does not exercise Valentina/Worship: Anabaptist Special valentina needs: No Seatbelt use: always Helmet use: No Drive intox or ride w/intox contract driver: No Firearms in home: Yes Firearms unloaded and locked: Yes Do you feel safe at home: Yes Do you feel safe in your relationship?: Yes Victim of physical abuse: No Victim of emotional abuse: No Victim of sexual abuse: No
[2024-03-30 15:01] VITALS: BP 123/62; PULSE 77; RESP 18; TEMP 36.6; O2SAT 97
[2024-03-30 15:40] LABS: COVID-19 PCR Negative (Negative); Influenza A PCR Negative (Negative); Influenza B PCR Negative (Negative); RSV PCR Negative (Negative)
[2024-03-30 15:44] LABS: Source Nasopharynx
== END 2024-03-30 16:18 | disposition home or self-care (01) ==
PROVIDERS: Emergency Provider Emergency Medicine; PCP Family Medicine
DX: J06.9 Acute upper respiratory infection, unspecified (principal); B97.89 Other viral agents as the cause of diseases classified elsewhere; I25.10 Atherosclerotic heart disease of native coronary artery without angina pectoris; E11.9 Type 2 diabetes mellitus without complications; Z95.1 Presence of aortocoronary bypass graft; Z95.5 Presence of coronary angioplasty implant and graft; Z82.49 Family history of ischemic heart disease and other diseases of the circulatory system; Z79.85 Long-term (current) use of injectable non-insulin antidiabetic drugs; Z79.82 Long term (current) use of aspirin; Z79.84 Long term (current) use of oral hypoglycemic drugs
CPT/HCPCS: 87637; 87880; 99283; 87081

== ENCOUNTER 2024-10-27 00:11 | Outpatient (CLI) | payer MEDICARE, SELFPAY ==
--- OUTSIDE RECORDS SUMMARY | 2024-10-27 00:13 | XMS_ITS | Encounter Summary ---
Author Organization [facility] [place] [address] Care Team Providers Care B2B Sales Executive Name Role Phone Lulú Toribio MD Primary Care Provider [phone] Encounter Details Date Type Department Care Team (Late st Contact Info) Description 08/06/2018 [place] [id number] Rebecca Allen MD Social History Tobacco Use Types Packs/Day Years Used Date Smoking Tobacco: Never Smokeless Tobacco: Never Alcohol Use Standard Drinks/Week Comments Yes 1 (1 standard drink = 0.6 oz pur e alcohol) occasionally Sex and Gender Information Value Date Recorded Sex Assigned at Not on file Gender Identity Not on file Sexual Orientation Not on file documented as of this encounter Plan of Treatment Not on file documented as of this encounter Visit Diagnoses Not on filedocumented in this encounter Care Teams B2B Sales Executive Relationship Specialty Start Date End Date Lulú Toribio MD [address] [place] [address] PCP - General 09/02/10 documented as of this encounter
--- OUTSIDE RECORDS SUMMARY | 2024-10-27 00:13 | XMS_ITS | Clinical Summary ---
Author Organization [facility] Address [facility] [place] [address] Care Team Providers Care Separator Inserter Name Role Phone Lulú Toribio MD Primary Care Provider [phone] Allergies Active Allergy Reactions Criticality Noted Date Comments Sulfa (Sulfonamide Antibiotics) Rash Medications Medication Sig Dispensed Refills Start Date End Date Status metoprolol succinate (TOPROL XL) 100 mg XL tablet 100 MG = 1 Tablet(s), PO, Once daily 12/22/2010 Active atorvastatin (LIPITOR) 80 mg tablet 80 MG = 1 Tablet(s), PO, QPM 12/22/2010 Active tamsulosin (FLOMAX) 0.4 mg capsule 0.4mg, PO, QPM 12/22/2010 Active clopidogrel (PLAVIX) 75 mg tablet 75 MG = 1 Tablet(s), PO, Once daily 12/22/2010 Active aspirin 81 mg EC tablet Take 81 mg by mouth daily. Active eszopiclone (LUNESTA) 3 mg Tab Take 3 mg by mouth nightly as needed. Active lisinopril (PRINIVIL;ZESTRIL) 10 mg tablet Take 10 mg by mouth daily. Active isosorbide mononitrate (IMDUR) 30 mg Tablet Sustained Release 24 hr Take 30 mg by mouth daily. Active clopidogrel (PLAVIX) 75 mg Tablet Take 1 tablet by mouth daily. 90 tablet 4 11/29/2014 Active metFORMIN (GLUCOPHAGE) 1,000 mg Tablet Take 1 tablet by mouth 2 times daily (with meals). 60 tablet 12 11/28/2014 Active Active Problems Problem Noted Date Diagnosed Date CAD (coronary artery disease) 11/28/2014 Overview (11/28/2014): 1. CABG x2 in 2005 (GOMEZ to LAD, SVG to ramus) 2. PCI to the left main and proximal circumflex coronary artery in 2005 (Taxus FRENCH x2) after an episode of ventricular fibrillatory arrest. 3. C (11/28/2014) Patent GOMEZ to LAD and SVG to ramus grafts. Left main and proximal circumflex stents patent. Ostial left PDA 98%, proximal LAD 90%, mid LAD 100%. RCA moderate diffuse disease. Promus Premier 2.25 x 16 mm FRENCH placed in the proximal LAD. CIS - Entered not Verified 10/10/2009 CIS - ASCVD Overview (11/28/2014): 1. CABG x2 in 2005 (GOMEZ to LAD, SVG to ramus) 2. PCI to the left main and proximal circumflex coronary artery in 2005 (Taxus FRENCH x2) after an episode of ventricular fibrillatory arrest. 3. [facility] (11/28/2014) Patent GOMEZ to LAD and SVG to ramus grafts. Left main and proximal circumflex stents patent. Ostial left PDA 98%, proximal LAD 90%, mid LAD 100%. RCA moderate diffuse disease. Promus Premier 2.25 x 16 mm FRENCH placed in the proximal LAD. CIS - Diabetes CIS - Elevated cholesterol CIS - History of V-fib arrest CIS - Hypertension CIS - Obesity Immunizations Name Administration Dates Next Due Influenza Vaccine, Whole 07/26/2006,09/01/2005 Td Adult (not absorbed) 05/07/2003 Social History Tobacco Use Types Packs/Day Years Used Date Smoking Tobacco: Never Smokeless Tobacco: Never Alcohol Use Standard Drinks/Week Comments Yes 1 (1 standard drink = 0.6 oz pur e alcohol) occasionally Sex and Gender Information Value Date Recorded Sex Assigned at Not on file Gender Identity Not on file Sexual Orientation Not on file Last Filed Vital Signs Vital Sign Reading Time Taken Comments Blood Pressure 117/51 11/29/2014 6:19 AM EST Pulse 55 11/29/2014 6:19 AM EST Temperature 36.6 ??C (97.9 ??F) 11/29/2014 6:19 AM ES T Respiratory Rate 16 11/29/2014 6:19 AM EST Oxygen Saturation 98% 11/29/2014 6:19 AM EST Inhaled Oxygen Concentration - - Weight 90.3 kg (199 lb) 11/28/2014 1:50 PM EST Height 177.8 cm (5' 10) 11/28/2014 1:50 PM EST Body Mass Index 28.55 11/28/2014 1:50 PM EST Plan of Treatment Health Maintenance Due Date Last Done Comments Hepatitis C Screening 12/25/1961 Pneumoccocal Vaccine: 50+ (1 of 1 - PCV) 12/25/1993 Zoster vaccine (1 of 2) 12/25/1993 Advance Directive 12/25/1998 Tetanus/Diphtheria/Pertussis Vaccines (1 - Tdap) 05/08/2003 05/07/2003 RSV Vaccine (1 - 1-dose 75+ series) 12/25/2018 Covid-19 Vaccine (1 - 2023- season) 2024 Influenza (Flu) vaccine (1 o f 1 - Influenza standard series) 06/11/2024 07/26/2006, 09/01/2005 Advance Directives * Full Code (Latest Code Status on File) Date Activated Date Inactivated Comments 11/28/2014 12:51 PM 11/29/2014 12:59 PM Question Answer Comments Order Status: Initial Order Does patient have decision m aking capacity? Yes, Order is based on Patients wishes. Care Teams Separator Inserter Relationship Specialty Start Date End Date Lulú Toribio MD [address] [facility] [place] [address] PCP - General 09/02/10
--- OUTSIDE RECORDS SUMMARY | 2024-10-27 00:13 | XMS_ITS | Encounter Summary ---
Author Organization [facility] [place] [address] Care Team Providers Care Worm Raiser Name Role Phone Lulú Toribio MD Primary Care Provider [phone] Encounter Details Date Type Department Care Team (Late st Contact Info) Description 08/06/2018 External Results [place] [address] Social History Tobacco Use Types Packs/Day Years [...] on file documented as of this encounter Procedures Procedure Name Priority Date/Time Associated Diagnosis Comments ECG SCAN Routine 08/06/2018 documented in this encounter Results * Scan Doc: ECG (08/06/2018) Historical Provider MD EDUARDO MGR SCAN EX T ORDR/RSLT documented in this encounter Visit Diagnoses Not on filedocumented in this encounter Care Teams Worm Raiser Relationship Specialty Start Date End Date Lulú Toribio MD [address] [place] [address] PCP - General 09/02/10 documented as of this encounter
--- OUTSIDE RECORDS SUMMARY | 2024-10-27 00:13 | XMS_ITS | Encounter Summary ---
Author Organization [facility] [place] [address] Care Team Providers Care Research Intern Name Role Phone Lulú Toribio MD Primary Care Provider [phone] Encounter Details Date Type Department Care Team (Latest Contact Info) Description 11/28/2014 7:21 AM EST - 11/29/2014 10:57 AM EST Hospital Encounter [place] [id number] Matthew Lewis MD [facility] [place] [address] Navneet Beckford MD ASCVD (arteriosclerotic cardiovascular disease); S/P coronary artery stent placement; CAD (coronary artery disease) Discharge Disposition: Home Social History Tobacco Use Types Packs/Day Years Used Date Smoking Tobacco: Never Smokeless Tobacco: Never Alcohol Use Standard Drinks/Week Comments Yes 1 (1 standard drink = 0.6 oz pur e alcohol) occasionally Sex and Gender Information Value Date Recorded Sex Assigned at Not on file Gender Identity Not on file Sexual Orientation Not on file documented as of this encounter Last Filed Vital Signs Vital Sign Reading [...] Mass Index 28.55 11/28/2014 1:50 PM EST documented in this encounter Discharge Instructions * Discharge Instructions* Mary Ellen Hatfield, Matthew Ramsey MD - 11/29/2014 8:14 AM EST Activity Do not bend over, strain, or lift heavy objects for 24 hours after the procedure. Do not participate in active sports for 48 hours. You may engage in sexual activity after 48 hours. These restrictions will not apply if the catheter was placed in a blood vessel in your arm. Catheter Insertion Area Care Take the band-aid off the catheter insertion area the morning following the procedure. You may takea shower if you wish. Wash the area with soap and water. Look for signs of infection over the next several days. A little spot of blood at the catheter insertion area is not unusual. A bruise or small lump under the skin is normal; they generally disappear in 3-4 days. For the first several days at home if you cough or sneeze, hold your groin to help prevent bleeding. Expect some mild tenderness over the area where the catheter was inserted. You will notice this after the local anesthetic (numbing medicine) wears off. This should improve during the 24-48 hours after the procedure. Take tylenol if needed. Contact your doctor if the discomfort worsens. Problems to Watch For If there is bright red blood flowing from the catheter insertion area: *stop what you are doing and lie down *Hold pressure steadily on the area for 15 minutes *Call for Help *If the bleeding does not stop in 15 minutes call 911 for an ambulance. If there is swelling with black and blue color at the catheter insertion area, there may be bleeding inside. Contact the doctor if there is any increase in size. Look at the insertion site for the first few days at home. Signs of infection are: *redness *Swelling *Yellow, white, green or brown foul smelling drainage. *increased soreness If you think there is an infection, take your temperature. Then call your doctor. The limb on the side where you had your catheterization should look and feel normal in its color, sensation, and temperature. If your leg becomes cool, pale, blue or changing color with numbness and tingling, contact your doctor. If you feel faint or dizzy, lie down with your feet elevated. Have someone call the doctor. If you are alert, drink fluids. How to Deal with Chest pain If you had only the cardiac catheterization, treat any angina or chest discomfort as instructed. Stop what you are doing, and sit or lie down. If prescribed, take nitroglycerin under your tongue. If the angina isn't relieved, take another nitroglycerine in 5 minutes. After another 5 minutes, a third nitroglycerine may be taken. If the angina isn't improved you should call for an ambulance to bring you to the nearest hospital emergency room. If your angina is more frequent or more sever than before, contact your doctor. We usually would not expect to have angina after an angioplasty. If you do get angina, treat it as you did before but also contact your doctor. Return to Work The doctor will usually have told you when to return to work. If you do not perform heavy physical labor, most people can return to work in a few days. Diet Follow your previous diet unless otherwise instructed. Cardiac Risk Factors If you have coronary artery disease, it is important that you help control it by reducing your cardiac risk factors. If you smoke, we urge you to stop now. If you think this is going to be a problem,let us know so that we may help you. We have dieticians who can help you learn about low fat, low cholesterol diet. Cardiac rehabilitation programs can help you set up a regular exercise program. Work with your doctor if you have high blood pressure or sugar diabetes to keep these under control. Who to Call with Questions or Problems If there are any questions or problems that you think might be related to your cardiac cath or angioplasty, contact the boat assembler occupational therapist assistant by calling [facility] at . * Patient Instructions* Matthew Robbins MD - 11/28/2014 3:00 PM EST Anti-coagulation follow up: N/A Call your doctor if: Chest pain, dyspnea, pain or swelling in legs occurs. If you have non-emergent questions between now and the time of your follow up appointments: During 8am-5pm Wednesday through Wednesday call [phone] to speak with a nurse in the cardiology clinic All other times call [phone] and ask to speak to the trim carpenter occupational therapist assistant. Return to work: One week Driving: No driving for 48 hours after catheterization. Follow up Appointments: Welt Insole Channeler Follow up with Dr. Ron Huerta as originally scheduled on 12/03/2014. documented in this encounter Medications at Time of Discharge Medication Sig Dispensed Refills Start Date End Date isosorbide mononitrate (IMDUR) 30 mg Tablet Sustained Release 24 hr Take 30 mg by mouth daily. clopidogrel (PLAVIX) 75 mg Tablet Take 1 tablet by mouth daily. 90 tablet 4 11/29/2014 metFORMIN (GLUCOPHAGE) 1,000 mg Tablet Take 1 tablet by mouth 2 times daily (with meals). 60 tablet 12 11/28/2014 lisinopril (PRINIVIL;ZESTRIL) 10 mg tablet Take 10 mg by mouth daily. aspirin 81 mg EC tablet Take 81 mg by mouth daily. eszopiclone (LUNESTA) 3 mg Tab Take 3 mg by mouth nightly as needed. metoprolol succinate (TOPROL XL) 100 mg XL tablet 100 MG = 1 Tablet(s), PO, Once daily 12/22/2010 atorvastatin (LIPITOR) 80 mg tablet 80 MG = 1 Tablet(s), PO, QPM 12/22/2010 tamsulosin (FLOMAX) 0.4 mg capsule 0.4mg, PO, QPM 12/22/2010 clopidogrel (PLAVIX) 75 mg tablet 75 MG = 1 Tablet(s), PO, Once daily 12/22/2010 documented as of this encounter Progress Notes * Ravinder Lynne RN - 11/29/2014 10:12 AM EST Pt DC to main entrance with . PT denies pain, verbalizes understanding regarding DC teaching specific to PCI. Going home with no services. * Gama Marques RN - 11/29/2014 8:27 AM EST Care Management (OCM)/ Clinical Urologist Md ( CRC) CRC Service ; Cardiology, Cardio Thoracic and Thoracic Gama SALINAS, RN Pager [phone] Record reviewed and patient discussed with multidisciplinary team. No discharge needs identified atthis time. CRC remains available as needed for coordination of care and discharge planning. * Navneet Beckford MD - 11/29/2014 8:10 AM EST Inpatient Cardiology Discharge Day Note Patient Name: Daren Olguin Service: Interventional Cardiology Responsible Attending: Navneet Beckford MD / Matthew Lewis MD Reason for continued hospitalization: Pending discharge this a.m. Active Problems: Active Hospital Problems Diagnosis ??? CAD (coronary artery disease) Resolved Hospital Problems Diagnosis Date Resolved No resolved problems to display. Interval History: The patient was admitted following cardiac catheterization for overnight monitoring and observation. The patient did well overnight without significant chest pain or arrhythmias on telemetry. The right femoral access site was evaluated and the femoral pulse was palpable with no evidence of vascular compromise to the right groin. Cardiac biomarkers and a repeat ECG were reviewed.The patient ambulated with nursing without chest discomfort or exertional dyspnea. The patient met criteria for discharge, and was released home in stable condition. Review of Systems: The patient denies chest pain and dyspnea. He denies right groin pain. Telemetry: HR: 59 sinus bradycardia; occasional premature atrial complexes, single 3 beat episode of nonsustained ventricular tachycardia, single 4 beat episode of paroxysmal atrial tachycardia Meds: Scheduled Meds: ??? sodium chloride 0.9 % 5 mL Intravenous Q12H ??? aspirin 81 mg Oral Daily ??? atorvastatin 80 mg Oral QPM ??? clopidogrel 75 mg Oral Daily ??? isosorbide mononitrate 30 mg Oral Daily ??? lisinopril 10 mg Oral Daily ??? metoprolol succinate 100 mg Oral Daily ??? tamsulosin 0.4 mg Oral Daily Physical Exam: Vital Signs: Last value Range last 12 hrs Temperature Temp: 36.6 ??C (97.9 ??F) Temp: [36.6 ??C (97.9 ??F)-36.7 ??C (98.1 ??F)] Heart Rate Heart Rate: 55 Heart Rate: [55-62] Blood Pressure BP: 117/51 mmHg BP: (110-121)/(44-51) Respiratory Rate Resp: 16 Resp: [16] SpO2 SpO2: 98 % SpO2: [98 %] Gen: Awake, alert, oriented, not in acute distress. Neck: JVP not elevated above the level of the sternal angle. Resp: Clear to auscultation bilaterally CVS: Midline sternotomy scar. Normal rate, regular rhythm. 2/6 systolic murmur best heard at the left upper sternal border. No rubs or gallops. Abd: soft, non-distended. Ext: Right femoral access site without swelling, bleeding, or hematoma. 2+ bilateral femoral pulseswith bruit. 2+ DP pulses. 2+ radial pulses. Trace edema. Lab Comments: Lab Results Component Value Date WBC 7.4 11/29/2014 HGB 13.4* 11/29/2014 HCT 39.2* 11/29/2014 PLATELET 176 11/29/2014 No results for input(s): INR in the last 168 hours. Lab Results Component Value Date NA 139 11/29/2014 K 4.3 11/29/2014 CL 102 11/29/2014 CO2 25 11/29/2014 BUN 12 11/29/2014 CREATININE 0.85 11/29/2014 Recent Labs 11/29/14 0410 CK 89 TROPONINT <0.03 Assessment: The patient is a 68-year-old man with a history of hypertension, diabetes mellitus type 2, dyslipidemia and coronary artery disease who previously underwent CABG x2 in 2004 (GOMEZ to LAD, SVG to ramus) disease followed by PCI to the left main and proximal circumflex coronary artery in 2005 after an episode of ventricular fibrillatory arrest. Over the past year, he has been experiencing worsening exertional angina. Myocardial perfusion imaging documented ischemia of the circumflex territory with an ejection fraction of 46%. Coronary angiography demonstrated patent bypass grafts, patent left main and circumflex stents, and a 70% stenosis of the proximal LAD supplying the first diagonal branch.During prior angiography, the first diagonal branch provided collaterals to the left PDA. PCI to the proximal LAD was performed. 1. Coronary artery disease (GOMEZ to LAD, SVG to ramus, FRENCH placement to the left main and circumflex) status post FRENCH placement to the proximal LAD (Promus Premier 2.25 x 16 mm FRENCH postdilated to 2.5mm) 2. Hypertension 3. Dyslipidemia 4. Diabetes mellitus type 2 Plan: 1. Continue aspirin 81 mg daily indefinitely. Continue Plavix 75 mg daily for at least one year. 2. Continue statin, beta berna, and LUCIA inhibitor. 3. The patient was told to hold metformin for the next 5 days 4. Discharge today. Matthew Hatfield MD Pager #[phone] 11/29/2014 Interventional Staff Discharge Day Note: I interviewed and examined the patient this morning 11/29/2014. Detailed findings are as per Dr. Mary Ellen Hatfield 's note above of 11/29/2014. Mr.. Olguin is ambulating and ready for discharge. He is not having chest pain, SOB or lightheadedness. Cath site is benign. ECG and biomarkers are negative for an acute event. I reviewed the findings and plan with the patient. We again reviewed the importance of cardiac rehabilitation, indications for various medications including clopidogrel 75 mg po daily for a minimum of 12 months with FRENCH and aspirin indefinitely. Cardiac follow-up is scheduled with Dr. Huerta next week. Details are outlined in the discharge summary. Discharge time > 30 minutes * Keyshawn Forrester RN - 11/28/2014 1:55 PM EST Patient Name: Daren Olguin Patient Age: 68 y.o. Birthdate: 1945 Admit date: 11/28/2014 Attending Physician: Matthew Lewis MD Pt to SSU placed on monitor, alarms set and are appropriate for Pt. Admission assessment on-going; see E-DH for on-going assessment documented in this encounter H&P Notes * Navneet Beckford MD - 11/28/2014 2:43 PM EST Daren Olguin [id number] 11/28/2014 68 y.o. Admission History and Physical PCP: LULÚ TORIBIO MD Referring: Ron Huerta MD Date of Referral: 11/28/2014 Admission Diagnosis: Coronary artery disease status post FRENCH placement (Promus Premier 2.25 x 16 mm) to the proximal LAD Date of Evaluation: 11/28/2014 Date of Admission: 11/28/2014 Problem List: Active Non-Hospital Problems Diagnosis ??? CIS - Entered not Verified ??? CIS - ASCVD ??? CIS - Diabetes ??? CIS - Elevated cholesterol ??? CIS - History of V-fib arrest ??? CIS - Hypertension ??? CIS - Obesity HPI: The patient is a 68-year-old man with a history of hypertension, dyslipidemia, diabetes mellitus type 2, and coronary artery disease status post CABG x2 (GOMEZ to LAD, SVG to ramus) disease, and ventricular fibrillatory arrest status post successful resuscitation. His cardiac history dates backto 2004, when he experienced unstable angina and underwent left heart catheterization on 11/19/2004. This demonstrated ostial left main 90%, ostial circumflex 70%, and proximal ramus stenosis of 70% with an ejection fraction of 70%. He underwent CABG x2 with GOMEZ to LAD SVG to ramus. His circumflexcoronary artery was not bypassed. The patient subsequently did well until he collapsed with a ventricular fibrillatory arrest during a walking race in [place] in 2005. He underwent left heart catheterization in [place], which showed patent grafts and generally unchanged anatomy. He underwent placement of Cypher drug-eluting st ents from the left main into the ostial circumflex. The distal circumflex was occluded and not intervened upon. Subsequent EP study did not show any inducible arrhythmia. The patient was asymptomatic for the next few years. Stress testing on 11/16/2012 showed mild inferobasal ischemia with an ejection fraction of 60%. Over the past year however, the patient developed exertional chest pain radiating down the left arm. He typically experiences the symptoms while walking on a treadmill. Interestingly, the pain improves as he continues walking. The patient underwent myocardial perfusion imaging on 11/26/2014, which showed a small to moderate-sized, moderately intense, partially reversible inferoseptal and apical defect. His ejection fraction was 46% with moderate to severe infero- apical hypokinesis. Because of the patient's chest pain and abnormal stress test findings, he was referred for left heart catheterization and possible intervention. The patient presented for coronary angiography on 11/28/2014. The patient's circumflex appeared unchanged, with a 98% stenosis of the left PDA. The patient's left main and circumflex stents, as well as his GOMEZ to LAD and SVG to ramus grafts were patent. On his prior images however, there appeared to be collateral filling of the left PDA from the first diagonal branch. A new 70% stenosis was noted in the proximal LAD that was supplying the diagonal branch, after which the LAD was completely occluded (the GOMEZ anastomosed to the mid LAD beyond the occlusion). A Promus Premier 2.25 x 16 mm FRENCH was placed in the proximal LAD, postdilated to 2.5 mm. The patient tolerated the procedure well without immediate postoperative complications. This patient is admitted post PCI for IV hydration, pain management, access site management in the setting of anticoagulation, serial cardiac biomarker monitoring, telemetry monitoring, evaluation oftheir medical condition, and cardiac rehabilitation. ROS/PMHx/Fam Hx/Soc Hx: Reviewed, see outpatient note. Physical Exam: Vital signs: BP 114/48 Pulse 52 Temp(Src) 37 ??C (98.6 ??F) (Oral) Resp 16 Ht 177.8 cm (5' 10) Wt 90.266 kg (199 lb) BMI 28.55 kg/m2 SpO2 99% Gen: Awake, alert, oriented, not in acute distress. Lying flat in bed postcardiac catheterization. Neck: JVP not elevated above the level of the sternal angle. Resp: Clear to auscultation bilaterally CVS: Midline sternotomy scar. Normal rate, regular rhythm. 2/6 systolic murmur best heard at the left upper sternal border. No rubs or gallops. Abd: soft, non-distended. Ext: Right femoral access site without swelling, bleeding, or hematoma. 2+ bilateral femoral pulseswith bruit. 2+ DP pulses. 2+ radial pulses. Trace edema. Labs: (11/26/2014): WBC 5.38, hemoglobin 13.6, platelet 202. Sodium 136, potassium 4.3, BUN 12, creatinine 0.9. Assessment: In summary, the patient is a 68-year-old man with a history of hypertension, diabetes mellitus type2, dyslipidemia and coronary artery disease who previously underwent CABG x2 in 2004 (GOMEZ to LAD, SVG to ramus) disease followed by PCI to the left main and proximal circumflex coronary artery in 2005 after an episode of ventricular fibrillatory arrest. Over the past year, he has been experiencing worsening exertional angina. Myocardial perfusion imaging documented ischemia of the circumflex territory with an ejection fraction of 46%. Coronary angiography demonstrated patent bypass grafts, patent left main and circumflex stents, and a 70% stenosis of the proximal LAD supplying the first diagonal branch. During prior angiography, the first diagonal branch provides collaterals to the left PDA 1. Coronary artery disease (GOMEZ to LAD, SVG to ramus, FRENCH placement to the left main and circumflex) status post FRENCH placement to the proximal LAD (Promus Premier 2.25 x 16 mm FRENCH postdilated to 2.5mm) 2. Hypertension 3. Dyslipidemia 4. Diabetes mellitus type 2 Plan: 1. Continue aspirin 81 mg daily indefinitely. Continue Plavix 75 mg daily for at least one year. 2. Continue statin, beta berna, and LUCIA inhibitor. 3. The patient was told to hold metformin for the next 5 days. 4. Admit for IV hydration, serial cardiac enzymes, access site management, cardiac rehabilitation, asa and clopidogrel per protocol. Matthew Hatfield MD 11/28/2014 Interventional Staff H&P: I interviewed and examined the patient, detailed findings are as per Dr. Mary Ellen Hatfield above. Daren Krishnan is a 68-year-old man with hypertension, diabetes mellitus type 2, dyslipidemia and coronary artery disease including CABG in 2004 with GOMEZ to LAD, SVG to ramus, followed by PCI to the left main and proximal circumflex coronary artery in 2005 in setting of VF. Over the past year, he has beenexperiencing worsening and life style limiting angina. He is now admitted post FRENCH to proximal LAD for observation. We were unable to wire chronic total occlusion of LPDA. The findings and plan were reviewed with the patient and his including recommendations for cardiac rehab, clopidogrel 75 mg daily for a minimum of 12 months with FRENCH and aspirin indefinitely. * Mary Ellen Hatfield, Matthew Ramsey MD - 11/28/2014 7:47 AM EST PRE-CARDIAC CATHETERIZATION 24-HOUR UPDATE The patient's history and physical exam have been reviewed and completed. There has been no interval change from that of the pre-operative history and physical exam done within the last 30 days (see note by Dr. Ron Huerta dated 11/26/2014). Brief History: The patient is a 68-year-old man with a history of hypertension, dyslipidemia, diabetes mellitus type 2, and coronary artery disease status post CABG x2 (GOMEZ to LAD, SVG to ramus) disease, and ventricular fibrillatory arrest status post successful resuscitation. His cardiac history dates back to 2004, when he experienced unstable angina and underwent left heart catheterization on 11/19/2004. This demonstrated ostial left main 90%, ostial circumflex 70%, and proximal ramus stenosis of 70% with an ejection fraction of 70%. He underwent CABG x2 with GOMEZ to LAD SVG to ramus. His circumflex coronary artery was not bypassed. The patient subsequently did well until he collapsed with a ventricular fibrillatory arrest during a walking race in [place] in 2005. He underwent left heart catheterization in [place], which showed patent grafts and generally unchanged anatomy. He underwent placement of Cypher drug-eluting st ents from the left main into the ostial circumflex. The distal circumflex was occluded and not intervened upon. Subsequent EP study did not show any inducible arrhythmia. The patient was asymptomatic for the next few years. Stress testing on 11/16/2012 showed mild inferobasal ischemia with an ejection fraction of 60%. Over the past year however, the patient developed exertional chest pain radiating down the left arm. He typically experiences the symptoms while walking on a treadmill. Interestingly, the pain improves as he continues walking. The patient underwent myocardial perfusion imaging on 11/26/2014, which showed a small to moderate-sized, moderately intense, partially reversible inferoseptal and apical defect. His ejection fraction was 46% with moderate to severe infero- apical hypokinesis. Because of the patient's chest pain and abnormal stress test findings, he was referred for left heart catheterization and possible intervention.. Allergies: Allergies Allergen Reactions ??? Sulfa (Sulfonamide Antibiotics) Rash Gen: Awake, alert, oriented, not in acute distress Neck: JVP not elevated above the level of the sternal angle. Resp: Clear to auscultation bilaterally CVS: Midline sternotomy scar. Normal rate, regular rhythm. 2/6 systolic murmur best heard at the left upper sternal border. No rubs or gallops. Abd: soft, non-distended. Ext: 2+ bilateral femoral pulses with bruit. 2+ DP pulses. 2+ radial pulses. Trace edema. Labs: (11/26/2014): WBC 5.38, hemoglobin 13.6, platelet 202. Sodium 136, potassium 4.3, BUN 12, creatinine 0.9. Assessment / Plan: In summary, the patient is a 68-year-old man with a history of hypertension, diabetes mellitus type2, dyslipidemia and coronary artery disease who previously underwent CABG x2 in 2004 (GOMEZ to LAD, SVG to ramus) disease followed by PCI to the left main and proximal circumflex coronary artery in 2005 after an episode of ventricular fibrillatory arrest. Over the past year, he has been experiencing worsening exertional angina. Myocardial perfusion imaging documented ischemia of the circumflex territory with an ejection fraction of 46%. Will proceed with left heart catheterization and possible PCI. The risks and benefits of cardiac catheterization were discussed, including but not limited to , bleeding, infection, stroke, myocardial infarction, need for open heart surgery, arrhythmia, kidney damage, and damage to entry site. All questions were answered. Signed consent in chart. Matthew Hatfield MD Interventional Outdoor Adventure Instructor Pager # [phone] documented in this encounter Miscellaneous Notes * Consult Note - Bing Matos RN - 11/29/2014 9:21 AM EST Daren Olguin was seen today by Cardiac Rehabilitation for: (no ) An activity evaluation - Done by medical staffing coordinator (yes ) Educational packet regarding CAD, cardiac risk factors, and managing angina given to patient. Heart diagram reviewed. This is familiar to him with his h/o CAD He exercises at gym 3 days/week; golfs, walking 9 holes in summer (yes ) Participation to the outpatient cardiac rehabilitation program at [facility] was discussed. Patient agrees to a referral to this program. The referral will be sent at discharge and the patient should be contacted by the Program within 1- 2 weeks from discharge. * Discharge Summary - Navneet Beckford MD - 11/29/2014 8:12 AM EST Discharge Summary Patient Name: Daren Olguin Patient Age: 68 y.o. Language: Kinyarwanda Race: White Ethnicity: Not nor Admit date: 11/28/2014 Discharge date and time: 11/29/2014 1100 AM Attending Physician: Navneet Beckford MD / Matthew Lewis MD Discharge Physician: Matthew Robbins MD Follow-up Recommendations for Providers: Continue aspirin 81 mg daily indefinitely. Continue clopidogrel 75 mg daily for a minimum of 12 months. Inpatient Provider Contact Information: Matthew Lewis MD Chua Chiaco, John Michael S, MD Clinic Pager #[phone] Discharge Diagnoses (Hospital Problems) and Secondary Diagnoses (Chronic Problems): Active Hospital Problems Diagnosis ??? CAD (coronary artery disease) 1. CABG x2 in 2004 (GOMEZ to LAD, SVG to ramus) 2. PCI to the left main and proximal circumflex coronary artery in 2005 (Taxus FRENCH x2) after an episode of ventricular fibrillatory arrest. 3. [facility] (11/28/2014) Patent GOMEZ to LAD and SVG to ramus grafts. Left main and proximal circumflex stents patent. Ostial left PDA 98%, proximal LAD 90%, mid LAD 100%. RCA moderate diffuse disease. Promus Premier 2.25 x 16 mm FRENCH placed in the proximal LAD. Resolved Hospital Problems Diagnosis Date Resolved No resolved problems to display. Active Non-Hospital Problems Diagnosis ??? CIS - Entered not Verified ??? CIS - ASCVD 1. CABG x2 in 2004 (GOMEZ to LAD, SVG to ramus) 2. PCI to the left main and proximal circumflex coronary artery in 2005 (Taxus FRENCH x2) after an episode of ventricular fibrillatory arrest. 3. [facility] (11/28/2014) Patent GOMEZ to LAD and SVG to ramus grafts. Left main and proximal circumflex stents patent. Ostial left PDA 98%, proximal LAD 90%, mid LAD 100%. RCA moderate diffuse disease. Promus Premier 2.25 x 16 mm FRENCH placed in the proximal LAD. ??? CIS - Diabetes ??? CIS - Elevated cholesterol ??? CIS - History of V-fib arrest ??? CIS - Hypertension ??? CIS - Obesity Operations/Major Procedures: [facility] (11/28/2014) Patent GOMEZ to LAD and SVG to ramus grafts. Left main and proximal circumflex stents patent. Ostial left PDA 98%, proximal LAD 90%, mid LAD 100%. RCA moderate diffuse disease. PromusPremier 2.25 x 16 mm FRENCH placed in the proximal LAD. History of Presentation: The patient is a 68-year-old man with a history of hypertension, dyslipidemia, diabetes mellitus type 2, and coronary artery disease status post CABG x2 (GOMEZ to LAD, SVG to ramus) disease, and ventricular fibrillatory arrest status post successful resuscitation. His cardiac history dates back to 2004, when he experienced unstable angina and underwent left heart catheterization on 11/19/2004. This demonstrated ostial left main 90%, ostial circumflex 70%, and proximal ramus stenosis of 70% with an ejection fraction of 70%. He underwent CABG x2 with GOMEZ to LAD SVG to ramus. His circumflex coronary artery was not bypassed. The patient subsequently did well until he collapsed with a ventricular fibrillatory arrest during a walking race in [place] in 2005. He underwent left heart catheterization in [place], which showed patent grafts and generally unchanged anatomy. He underwent placement of Cypher drug-eluting st ents from the left main into the ostial circumflex. The distal circumflex was occluded and not intervened upon. Subsequent EP study did not show any inducible arrhythmia. The patient was asymptomatic for the next few years. Stress testing on 11/16/2012 showed mild inferobasal ischemia with an ejection fraction of 60%. Over the past year however, the patient developed exertional chest pain radiating down the left arm. He typically experiences the symptoms while walking on a treadmill. Interestingly, the pain improves as he continues walking. The patient underwent myocardial perfusion imaging on 11/26/2014, which showed a small to moderate-sized, moderately intense, partially reversible inferoseptal and apical defect. His ejection fraction was 46% with moderate to severe infero- apical hypokinesis. Because of the patient's chest pain and abnormal stress test findings, he was referred for left heart catheterization and possible intervention. Hospital Course: The patient presented for coronary angiography on 11/28/2014. The patient's circumflex appeared unchanged, with a 98% stenosis of the left PDA. The patient's left main and circumflex stents, as well as his GOMEZ to LAD and SVG to ramus grafts were patent. On his prior images however, there appeared to be collateral filling of the left PDA from the first diagonal branch. A new 70% stenosis was noted in the proximal LAD that was supplying the diagonal branch, after which the LAD was completely occluded (the GOMEZ anastomosed to the mid LAD beyond the occlusion). There was compromise flow down thediagonal branch because of the LAD stenosis. Attempts to wire the chronically occluded LPDA were uns uccessful. A Promus Premier 2.25 x 16 mm FRENCH was placed in the proximal LAD, postdilated to 2.5 mm.It passed easily through the old LM/LCx stent from 2005. The patient tolerated the procedure well without immediate postoperative complications. Functional and Cognitive Status: Ambulatory and alert Important Studies and Lab Data: Labs: Lab Results Component Value Date WBC 7.4 11/29/2014 HGB 13.4* 11/29/2014 HCT 39.2* 11/29/2014 PLATELET 176 11/29/2014 No results for input(s): INR in the last 168 hours. Lab Results Component Value Date NA 139 11/29/2014 K 4.3 11/29/2014 CL 102 11/29/2014 CO2 25 11/29/2014 BUN 12 11/29/2014 CREATININE 0.85 11/29/2014 Recent Labs 11/29/14 0410 CK 89 TROPONINT <0.03 Discharge to: Home Updated Allergies/ADRs: Allergies Allergen Reactions ??? Sulfa (Sulfonamide Antibiotics) Rash Immunizations Given this Hospitalization: Immunization History Administered Date(s) Administered ??? Influenza Vaccine, Whole 09/01/2005, 07/26/2006 ??? Td, adult 05/07/2003 Discharge Medications: Your Medications Continued medications with new dosing Dose Details * PLAVIX 75 mg Tab 75 MG = 1 Tablet(s), PO, Once daily Generic drug: clopidogrel What changed: Another medication with the same name was added. Make sure you understand how and when to take each. Refills: 0 * clopidogrel 75 mg Tab Commonly known as: PLAVIX Take 1 tablet by mouth daily. What changed: You were already taking a medication with the same name, and this prescription was added. Make sure you understand how and when to take each. 75 mg Quantity: 90 tablet Refills: 4 * Notice: This list has 2 medication(s) that are the same as other medications prescribed for you. Read the directions carefully, and ask your doctor or other care provider to review them with you. Continued medications, unchanged Dose Details aspirin 81 mg Tbec Take 81 mg by mouth daily. 81 mg Refills: 0 eszopiclone 3 mg Tab Commonly known as: LUNESTA Take 3 mg by mouth nightly as needed. 3 mg Refills: 0 FLOMAX 0.4 mg Cp24 0.4mg, PO, QPM Generic drug: tamsulosin Refills: 0 isosorbide mononitrate 30 mg Tablet sr Commonly known as: IMDUR Take 30 mg by mouth daily. 30 mg Refills: 0 LIPITOR 80 mg Tab 80 MG = 1 Tablet(s), PO, QPM Generic drug: atorvastatin Refills: 0 lisinopril 10 mg Tab Commonly known as: PRINIVIL;ZESTRIL Take 10 mg by mouth daily. 10 mg Refills: 0 metFORMIN 1,000 mg Tab Commonly known as: GLUCOPHAGE Take 1 tablet by mouth 2 times daily (with meals). 1000 mg Quantity: 60 tablet Refills: 12 TOPROL XL 100 mg Tablet sr 100 MG = 1 Tablet(s), PO, Once daily Generic drug: metoprolol succinate Refills: 0 STOPPED Medications VIAGRA 50 mg Tab Generic drug: sildenafil Smoking Status at Discharge: History Smoking status ??? Never Smoker Smokeless tobacco ??? Never Used Instructions Given to Patient at Discharge: Patient Instructions Anti-coagulation follow up: N/A Call your doctor if: Chest pain, dyspnea, pain or swelling in legs occurs. If you have non-emergent questions between now and the time of your follow up appointments: During 8am-5pm Wednesday through Wednesday call [phone] to speak with a nurse in the cardiology clinic All other times call [phone] and ask to speak to the trim carpenter occupational therapist assistant. Return to work: One week Driving: No driving for 48 hours after catheterization. Follow up Appointments: [facility] Follow up with Dr. Ron Huerta as originally scheduled on 12/03/2014. General Instructions Activity Do not bend over, strain, or lift heavy objects for 24 hours after the procedure. Do not participate in active sports for 48 hours. You may engage in sexual activity after 48 hours. These restrictions will not apply if the catheter was placed in a blood vessel in your arm. Catheter Insertion Area Care Take the band-aid off the catheter insertion area the morning following the procedure. You may takea shower if you wish. Wash the area with soap and water. Look for signs of infection over the next several days. A little spot of blood at the catheter insertion area is not unusual. A bruise or small lump under the skin is normal; they generally disappear in 3-4 days. For the first several days at home if you cough or sneeze, hold your groin to help prevent bleeding. Expect some mild tenderness over the area where the catheter was inserted. You will notice this after the local anesthetic (numbing medicine) wears off. This should improve during the 24-48 hours after the procedure. Take tylenol if needed. Contact your doctor if the discomfort worsens. Problems to Watch For If there is bright red blood flowing from the catheter insertion area: *stop what you are doing and lie down *Hold pressure steadily on the area for 15 minutes *Call for Help *If the bleeding does not stop in 15 minutes call 911 for an ambulance. If there is swelling with black and blue color at the catheter insertion area, there may be bleeding inside. Contact the doctor if there is any increase in size. Look at the insertion site for the first few days at home. Signs of infection are: *redness *Swelling *Yellow, white, green or brown foul smelling drainage. *increased soreness If you think there is an infection, take your temperature. Then call your doctor. The limb on the side where you had your catheterization should look and feel normal in its color, sensation, and temperature. If your leg becomes cool, pale, blue or changing color with numbness and tingling, contact your doctor. If you feel faint or dizzy, lie down with your feet elevated. Have someone call the doctor. If you are alert, drink fluids. How to Deal with Chest pain If you had only the cardiac catheterization, treat any angina or chest discomfort as instructed. Stop what you are doing, and sit or lie down. If prescribed, take nitroglycerin under your tongue. If the angina isn't relieved, take another nitroglycerine in 5 minutes. After another 5 minutes, a third nitroglycerine may be taken. If the angina isn't improved you should call for an ambulance to bring you to the nearest hospital emergency room. If your angina is more frequent or more sever than before, contact your doctor. We usually would not expect to have angina after an angioplasty. If you do get angina, treat it as you did before but also contact your doctor. Return to Work The doctor will usually have told you when to return to work. If you do not perform heavy physical labor, most people can return to work in a few days. Diet Follow your previous diet unless otherwise instructed. Cardiac Risk Factors If you have coronary artery disease, it is important that you help control it by reducing your cardiac risk factors. If you smoke, we urge you to stop now. If you think this is going to be a problem,let us know so that we may help you. We have dieticians who can help you learn about low fat, low cholesterol diet. Cardiac rehabilitation programs can help you set up a regular exercise program. Work with your doctor if you have high blood pressure or sugar diabetes to keep these under control. Who to Call with Questions or Problems If there are any questions or problems that you think might be related to your cardiac cath or angioplasty, contact the boat assembler occupational therapist assistant by calling [facility] at . Discharge References/Attachments None Matthew Hatfield MD Pager #[phone] * Plan of Care - Rhoda Jain RN - 11/29/2014 5:53 AM EST Problem: General Plan of Care Goal: Plan of Care Review Outcome: Ongoing (Interventions Implemented as Appropriate) 11/28/14 1633 11/28/141999 Plan of Care Review Plan of Care Outcome Status ongoing (interventions implemented as appropriate) -- Progress improving -- Coping/Psychosocial Response Interventions Plan of Care Reviewed with -- patient OUTCOME EVALUATION NOTE: OUTCOME SUMMARY: Daren had a fine night. He has slept between care. His right groin site has old dry staining. He is up ad sorin without any complaints,Tele- sinus gerry/sinus rhythm. PLAN MOVING FORWARD:Cardiac walk, EKG, cardiac rehab. INDIVIDUALIZED FALL PREVENTION: Assistance: independent Supervision:independent Surveillance: Purposeful rounding CPG OUTCOME EVALUATION: Goal: Individualization and Mutuality Outcome: Ongoing (Interventions Implemented as Appropriate) 11/28/14 194 Mutuality/Individual Preferences What anxieties, fears or concerns do you have about your health or care? worried about health What questions do you have about your health or care? wonderes about why this is roccurring What information would help us give you more personalized care? none Goal: Fall Prevention-Safe Patient Handling Outcome: Ongoing (Interventions Implemented as Appropriate) 11/28/14 1350 11/28/14 1529 11/28/141999 Safety Interventions Safety Precautions/Fall Reduction -- -- nonskid shoes/slippers when out of bed;lighting adjusted for task/safety;fall reduction program maintained Musculoskeletal Interventions Activity/Level of Assistance -- with stand by assist -- Positioning HOB up 30 degrees -- -- Goal: Infection Control Outcome: Ongoing (Interventions Implemented as Appropriate) 11/28/14 1350 11/28/14 163 Safety Interventions Infection Prevention -- blood glucose management Coping/Psychosocial Response Interventions Counseling calming techniques promoted;emotional support provided;goal setting facilitated -- Goal: Discharge Needs Assessment Outcome: Ongoing (Interventions Implemented as Appropriate) 11/28/14 1633 11/28/14 1949 Discharge Needs Assessment Concerns to be Addressed no discharge needs identified -- Readmission Within the Last 30 Days no previous admission in last 30 days -- Equipment Needed After Discharge none -- Current Health Anticipated Changes Related to Illness none -- Self-Care Equipment Currently Used at Home -- none Living Environment Transportation Available none;car -- * Plan of Care - Keyshawn Forrester RN - 11/28/2014 4:37 PM EST Problem: General Plan of Care Goal: Plan of Care Review 11/28/14 1633 Plan of Care Review Plan of Care Outcome Status ongoing (interventions implemented as appropriate) Progress improving Coping/Psychosocial Response Interventions Plan of Care Reviewed with spouse;patient OUTCOME EVALUATION NOTE: OUTCOME SUMMARY: Patient arrived to [facility] via stretcher from [facility]. Groin checked. Patient on bedrest until 1430. Whiteboard filled out with goals. Patient verbalized understanding of each of the goals. Menu completed. PLAN MOVING FORWARD: To meet DC criteria patient will walk ad sorin and in the AM have labs drawn, EKG completed, meet with Cardiac Rehab and undergo a Cardiac Walk. INDIVIDUALIZED FALL PREVENTION: Assistance: Up ad sorin with stand-by supervision Supervision: Independent in all ADLs Surveillance: Purposeful two-hour rounding CPG GOAL OUTCOME EVALUATION: Goal: Fall Prevention-Safe Patient Handling 11/28/14 1350 11/28/14 1358 11/28/14 1529 Safety Interventions Safety Precautions/Fall Reduction environmental modification;fall reduction program maintained;lighting adjusted for task/safety;nonskid shoes/slippers when out of bed -- -- Tripathi Fall Risk History of Falling -- 0 -- Secondary Diagnosis -- 15 -- Ambulatory Aids -- 0 -- Intravenous Therapy/Heparin/Saline Lock -- 20 -- Gait/Transferring -- 0 -- Mental Status -- 0 -- Score -- 35 -- OTHER Tripathi Fall Risk -- Medium (25-44) -- Musculoskeletal Interventions Activity/Level of Assistance -- -- with stand by assist Positioning HOB up 30 degrees -- -- Goal: Infection Control 11/28/14 1350 11/28/14 1633 Safety Interventions Infection Prevention -- blood glucose management Coping/Psychosocial Response Interventions Counseling calming techniques promoted;emotional support provided;goal setting facilitated -- Goal: Discharge Needs Assessment 11/28/14 1633 Discharge Needs Assessment Concerns to be Addressed no discharge needs identified Readmission Within the Last 30 Days no previous admission in last 30 days Equipment Needed After Discharge none Current Health Anticipated Changes Related to Illness none Self-Care Equipment Currently Used at Home none Living Environment Transportation Available none;car documented in this encounter Plan of Treatment Not on file documented as of this encounter Procedures Procedure Name Priority Date/Time Associated Diagnosis Comments EKG 12-LEAD Routine 11/29/2014 7:46 AM EST ASCVD (arteriosclerotic cardiovascular disease) BMP W/FASTING GLUCOSE Routine 11/29/2014 4:10 AM EST HEMOGRAM Routine 11/29/2014 4:10 AM EST DIFFERENTIAL, AUTOMATED Routine 11/29/2014 4:10 AM EST CARDIAC ENZYMES (MC/CGP) Routine 11/29/2014 4:10 AM EST CBC (WITH DIFF) Routine 11/29/2014 4:10 AM EST RETAIL MANAGEMENT TRAINEE SCAN 11/29/2014 12:00 AM EST CARDIAC CATH SCAN 11/29/2014 12: 00 AM EST POCT GLUCOSE Routine 11/28/2014 2:02 PM EST EKG 12-LEAD Routine 11/28/2014 1:05 PM EST ASCVD (arteriosclerotic cardiovascular disease) EKG 12-LEAD Routine 11/28/2014 8:13 AM EST ASCVD (arteriosclerotic cardiovascular disease) POCT GLUCOSE Routine 11/28/2014 7:55 AM EST documented in this encounter Results * EKG 12 Lead (11/29/2014 7:46 AM EST) Ventricular rate 59 BPM MUSE SYSTEM Atrial Rate 59 BPM MUSE SYSTEM P-R Interval 176 ms MUSE SYSTEM QRS Duration 90 ms MUSE SYSTEM Q-T Interval 416 ms MUSE SYSTEM QTC Calculated (Bezet) 411 ms MUSE SYSTEM Calculated P [place] 10 degrees MUSE SYSTEM Calculated T [place] -9 degrees MUSE SYSTEM INTERPRETATION Sinus bradycardia Minimal voltage criteria for LVH, may be normal variant Inferior infarct (cited on or before 28-NOV-2014) Abnormal ECG When compared with ECG of 28-NOV-2014 13:05, (unconfirmed) No significant change was found Confirmed by Mj MCCLAIN MD, Lyndon ([id number]) on 11/29/2014 10:23:16 AM MUSE SYSTEM 11/29/2014 7:46 AM EST 11/29/2014 10:23 AM EST Navneet Beckford MD ECG ORDERABLES MUSE SYSTEM * Differential, Automated (11/29/2014 4:10 AM EST) Neutrophil % 64.9 % CERNER MILLENNIUM Neutrophil Absolute 4.83 1.50 - 6.30 x10(3)/mcL CERNER MILLENNIUM Lymph % 23.5 % CERNER MILLENNIUM Lymphocytes Abs 1.8 1.0 - 3.6 x10(3)/mcL CERNER MILLENNIUM Monocyte % 7.2 % CERNER MILLENNIUM Monocyte Abs 0.5 0.2 - 1.0 x10(3)/mcL CERNER MILLENNIUM Eos % 4.0 % CERNER MILLENNIUM Eosinophils Abs 0.3 0.0 - 0.5 x10(3)/mcL CERNER MILLENNIUM Basophil % 0.3 % CERNER MILLENNIUM Baso Absolute 0.0 0.0 - 0.2 x10(3)/mcL CERNER MILLENNIUM Immature Gran % 0.10 % CERN ER MILLENNIUM Comment: Immature granulocytes(IG's)percentage and absolute count will include metamyelocytes, myelocytes, and promyelocytes. Blood smears from CBCs yielding IG's will be scanned manually for concordance. If this scan disagrees with the automated IG or if promyelocytes are noted, a manual differential will be performed. Immature Gran Absolute 0.01 0.00 - 0.05 x10(3)/mcL CERNER MILLENNIUM Blood specimen (specimen) 11/29/2014 4:10 AM EST 11/29/2014 4:34 AM EST Narrative Resulting Agency Comment Spec In Lab Navneet Beckford MD HEMATOLOGY ORDERABLE S CERRAVEN VAZQUEZENNIUM * (ABNORMAL) Hemogram (11/29/2014 4:10 AM EST) White Blood Cell 7.4 4.0 - 10.0 x10(3)/mc L CERNER MILLENNIUM Red Blood Cell 4.07(L) 4.63 - 6.08 x10(6)/mc L CERNER MILLENNIUM Hemoglobin 13.4(L) 13.7 - 17.5 gm/dL CERNER MILLENNIUM Hematocrit 39.2(L) 40.0 - 51.0 % CERNER MILLENNIUM Mean Cell Volume 96.3(H) 79.0 - 92.0 fL CERNER MILLENNIUM Mean Cell Hemoglobin 32.9(H) 25.6 - 32.2 pg CERNER MILLENNIUM Mean Cell Hemoglobin Concentration 34.2 32.0 - 36.5 gm/dL CERNER MILLENNIUM Platelet 176 145 - 370 x10(3)/mc L CERNER MILLENNIUM RDW Standard Deviation 46.5(H) 35.0 - 46.0 fL CERNER MILLENNIUM RDW coefficient of variation 13.3 10.9 - 14.4 % CERNER MILLENNIUM Mean Platelet Volume 9.7 9.0 - 12.0 fL CERNER MILLENNIUM Blood specimen (specimen) 11/29/2014 4:10 AM EST 11/29/2014 4:34 AM EST Narrative Resulting Agency Comment Spec In Lab Navneet Beckford MD HEMATOLOGY ORDERABLE S CERNER MILLENNIUM * (ABNORMAL) BMP w/fasting Glucose (11/29/2014 4:10 AM EST) Glucose Fasting 111(H) 65 - 99 mg/dL CERNER MILLENNIUM Comment: ?Fasting* Glucose Interpretive Criteria Normal ?65-99 mg/dL Impaired Fasting glucose ?100-125 mg/dL Consistent with Diabetes Mellitus ? >or= 126 mg/dL *Fasting is defined as no caloric intake for at least 8 hours In the absence of unequivocal hyperglycemia a plasma glucose value of >or= 126 mg/dL should be repeated on a subsequent day. Diagnosis and Classification of Diabetes Mellitus, Position Statement from the [place] [employer]. ??Diabetes Care, Volume 33, Supplement 1, Oct 2009 Blood Urea Nitrogen 12 10 - 20 mg/dL CERNER MILLENNIUM Creatinine 0.85 0.80 - 1.50 mg/dL CERNER MILLENNIUM Comment: Please note that the pediatric reference intervals supplied above were not validated at [facility]. Results from pediatric patients should be interpreted in conjunction to the patient's age, height and muscle mass. Sodium 139 135 - 145 mmol/L CERNER MILLENNIUM Potassium 4.3 3.5 - 5.0 mmol/L CERNER MILLENNIUM Comment: Please note: ??Patients with WBC >100,000 may have falsely elevated Potassium levels. ??For accurate Potassium quantification in these patients send serum separator tube (gold top) for subsequent determinations. ??Contact the Clinical Chemistry Laboratory if there are any questions. Chloride 102 98 - 107 mmol/L CERNER MILLENNIUM Carbon Dioxide 25 22 - 31 mmol/L CERNER MILLENNIUM Anion Gap 12 5 - 15 mmol/L CERNER MILLENNIUM Calcium 9.4 8.5 - 10.5 mg/dL CERNER MILLENNIUM Est Glomerular Filtration Rate >60 >=60 CERNER MILLENNIUM Comment: This estimated GFR (eGFR) value was calculated using the MDRD equation which has been validated on patients between the ages of 18 and 70. The MDRD should not be used to assess kidney function in patients < 18 years of age or in patients with extremes of body mass, or in patients with acute kidney failure. This value should be multiplied by 1.2 for patients. For further information please copy and paste the following links into your internet browser. [email or web address] Blood specimen (specimen) 11/29/2014 4:10 AM EST 11/29/2014 4:34 AM EST Narrative Resulting Agency Comment Spec In Lab Navneet Beckford MD CHEMISTRY ORDERABLES [facility] * Cardiac Enzymes (11/29/2014 4:10 AM EST) Troponin-T <0.03 <=0.03 ng/mL CERNER MILLENNIUM Comment: 0.03 ng/mL: Represents the 99th percentile upper reference limit for normals. >0.03 ng/mL: Elevated cardiac troponin T level indicative of myocardial damage. Diagnosis of acute, evolving or recent MS requires a typical rise and gradual fall of cTnT with at least ONE of the following: a) Ischemic symptoms b) Development of pathologic Q waves on the ECG c) ECG changes indicative of eschemia (S-T segment elevation/depression) d) Coronary artery intervention Serial bloods should be obtained for testing on admission, at 6 to 9 hrs and again at 12 to 24 hrs if earlier samples are negative and the clinical index of suspicion is high. Reference: [Myocardial infarction redefined? a consensus document of the Joint Society of Cardiology/[place] [employer] Committee for the redefinition of myocardial infarction. ??Journal of the [place] [employer] 2000; 36: 959-969] Creatine Kinase 89 0 - 200 unit/L GABRIELLE Apalya Blood specimen (specimen) 11/29/2014 4:10 AM EST 11/29/2014 4:34 AM EST Narrative Resulting Agency Comment Spec In Lab Navneet Beckford MD CHEMISTRY ORDERABLES Performing Organization Address [facility] de Phone Number GABRIELLE Apalya * SCAN DOC: CARDIAC CATH (11/29/2014 12:00 AM EST) Anatomical Region Laterality Modality Other Scanning Provider MEDIA MGR SCAN EXT O RDR/RSLT * SCAN DOC: RETAIL MANAGEMENT TRAINEE (11/29/2014 12:00 AM EST) Anatomical Region Laterality Modality Other Scanning Provider MEDIA MGR SCAN EXT O RDR/RSLT * POCT Glucose (11/28/2014 2:02 PM EST) Glucose, POC 104 60 - 199 mg/dL [facility] [place] Comment: Supplemental ranges: <140 mg/dL before meals <180 mg/dL all other times of the day Blood specimen (specimen) 11/28/2014 2:02 PM EST 11/28/2014 2:02 PM EST Matthew Lewis MD POINT OF CARE TEST O RDERABLES Performing Organization Address [facility] de Phone Number GABRIELLE [place] * EKG 12 Lead (11/28/2014 1:05 PM EST) Ventricular rate 54 BPM MUSE SYSTEM Atrial Rate 54 BPM MUSE SYSTEM P-R Interval 168 ms MUSE SYSTEM QRS Duration 86 ms MUSE SYSTEM Q-T Interval 420 ms MUSE SYSTEM QTC Calculated (Bezet) 398 ms MUSE SYSTEM Calculated P [place] 36 degrees MUSE SYSTEM Calculated R [place] 0 degrees MUSE SYSTEM Calculated T [place] -20 degrees MUSE SYSTEM INTERPRETATION Sinus bradycardia Inferior infarct (cited on or before 28-NOV-2014) When compared with ECG of 28-NOV-2014 08:13, No significant change was found Confirmed by MD Davis Timothy ([id number]) on 11/29/2014 9:47:40 AM MUSE SYSTEM 11/28/2014 1:05 PM EST 11/29/2014 9:47 AM EST Navneet Beckford MD ECG ORDERABLES Performing Organization Address [facility] de Phone Number MUSE SYSTEM * EKG 12 Lead (11/28/2014 8:13 AM EST) Ventricular rate 54 BPM MUSE SYSTEM Atrial Rate 54 BPM MUSE SYSTEM P-R Interval 160 ms MUSE SYSTEM QRS Duration 94 ms MUSE SYSTEM Q-T Interval 428 ms MUSE SYSTEM QTC Calculated (Bezet) 405 ms MUSE SYSTEM Calculated P [place] -5 degrees MUSE SYSTEM Calculated R [place] 1 degrees MUSE SYSTEM Calculated T [place] -9 degrees MUSE SYSTEM INTERPRETATION Sinus bradycardia Minimal voltage criteria for LVH, may be normal variant Inferior infarct , age undetermined Abnormal ECG When compared with ECG of 05-MAY-2006 11:57, Inferior infarct is now Present Confirmed by MD JANET, NAVNEET ([id number]) on 11/28/2014 11:12:59 PM MUSE SYSTEM 11/28/2014 8:13 AM EST 11/28/2014 11:12 PM EST Matthew Lewis MD ECG ORDERABLES Performing Organization Address [facility] Co de Phone Number MUSE SYSTEM * POCT Glucose (11/28/2014 7:55 AM EST) Glucose, POC 161 60 - 199 mg/dL [facility] Comment: Supplemental ranges: <140 mg/dL before meals <180 mg/dL all other times of the day Blood specimen (specimen) 11/28/2014 7:55 AM EST 11/28/2014 7:55 AM EST Matthew Lewis MD POINT OF CARE TEST O RDERABLES GABRIELLE MONTES documented in this encounter Visit Diagnoses Diagnosis ASCVD (arteriosclerotic cardiovascular disease) Unspecified cardiovascular disease S/P coronary artery stent placement Postsurgical percutaneous transluminal coronary angioplasty status CAD (coronary artery disease) Coronary atherosclerosis of unspecified type of vessel, [place] or graft CAD (coronary artery disease) Coronary atherosclerosis of unspecified type of vessel, [place] or graft documented in this encounter Administered Medications Inactive Administered Medications - up to 3 most recent administrations Medication Order MAR Action Action Date Dose Rate Site aspirin EC tablet 81 mg 81 mg, Oral, DAILY, First dose on Wed11/29/14 at 0900, Until Discontinued, Cath (Recovery-Hospital Unit), Routine Given 11/29/2014 8:52 AM EST 81 mg atorvastatin (LIPITOR) tablet 80 mg 80 mg, Oral, EVERY EVENING, First dose on Wed11/28/14 at 1700, Until Discontinued, Cath (Recovery-Hospital Unit), Routine Given 11/28/2014 8:46 PM EST 80 mg clopidogrel (PLAVIX) tablet 75 mg 75 mg, Oral, DAILY, First dose on Wed11/29/14 at 0900, Until Discontinued, Routine Given 11/29/2014 8:52 AM EST 75 mg diaZEPam (VALIUM) tablet 5 mg 5 mg, Oral, ONCE, 1 dose, On Wed11/28/14 at 0815, Cath (Day of Procedure), Routine Given 11/28/2014 9:26 AM EST 5 mg diphenhydrAMINE (BENADRYL) capsule 25 mg 25 mg, Oral, ONCE, 1 dose, On Wed11/28/14 at 0815, Cath (Day of Procedure), Routine Given 11/28/2014 9:27 AM EST 25 mg isosorbide mononitrate (IMDUR) CR tablet 30 mg 30 mg, Oral, DAILY, First dose on Wed11/29/14 at 0900, Until Discontinued, Cath (Recovery-Hospital Unit), Routine Given 11/29/2014 8:53 AM EST 30 mg lisinopril (PRINIVIL;ZESTRIL) tablet 10 mg 10 mg, Oral, DAILY, First dose on Wed11/28/14 at 1500, Until Discontinued, Routine Given 11/29/2014 8:53 AM EST 10 mg metoprolol succinate (TOPROL-XL) XL tablet 100 mg 100 mg, Oral, DAILY, First dose on Wed11/29/14 at 0900, Until Discontinued, Cath (Recovery-Hospital Unit), Routine Given 11/29/2014 8:53 AM EST 100 mg sodium chloride 0.9 % flush 5 mL 5 mL, Intravenous, EVERY 12 HOURS, First dose on Wed11/28/14 at 0815, Until Discontinued, Cath (Day of Procedure), Routine Given 11/29/2014 8:53 AM EST 5 mLs sodium chloride 0.9% infusion 200 mL/hr, Intravenous, CONTINUOUS, Starting on Wed11/28/14 at 0815, Until Wed11/28/14 at 1214, Cath (Day of Procedure) New Bag 11/28/2014 9:18 AM EST 200 mL/hr 200 mL/hr sodium chloride 0.9% infusion 100 mL/hr, Intravenous, CONTINUOUS, Starting on Wed11/28/14 at 1315, Until Wed11/28/14 at 2314, Cath (Recovery-Hospital Unit) New Bag 11/28/2014 1:00 PM EST 100 mL/hr 100 mL /hr tamsulosin (FLOMAX) capsule 0.4 mg 0.4 mg, Oral, DAILY, First dose on Wed11/28/14 at 1500, Until Discontinued, Cath (Recovery-Hospital Unit), Routine Given 11/29/2014 8:53 AM EST 0.4 mg Given 11/28/2014 8:47 PM EST 0.4 mg documented in this encounter Active and Recently Administered Medications Times are shown in EST. Scheduled Medication Order 11/27/2014 11/28/2014 11/29/2014 aspirin EC tablet 81 mg (CANCELED) 81 mg, Oral, DAILY, First dose on Hafsa 11/29/14 at 0900, Until Discontinued, Cath (Recovery-Hospital Unit), Routine 851 (Given - Provid er: Ravinder Lynne RN) atorvastatin (LIPITOR) tablet 80 mg (CANCELED) 80 mg, Oral, EVERY EVENING, First dose on Wed11/28/14 at 1700, Until Discontinued, Cath (Recovery-Hospital Unit), Routine 2045 (Given - Provider: Rhoda Jain RN) clopidogrel (PLAVIX) tablet 75 mg 75 mg, Oral, DAILY, First dose on Hafsa 11/29/14 at 0900, Until Discontinued, Routine 0852 (Given - Provid er: Ravinder Lynne RN) diaZEPam (VALIUM) tablet 5 mg (COMPLETED) 5 mg, Oral, ONCE, 1 dose, On Wed11/28/14 at 0815, Cath (Day of Procedure), Routine 09 (Given - Provider: Ave Robledo RN) diphenhydrAMINE (BENADRYL) capsule 25 mg (COMPLETED) 25 mg, Oral, ONCE, 1 dose, On Wed11/28/14 at 0815, Cath (Day of Procedure), Routine 926 (Given - Provider: Ave Robledo RN) isosorbide mononitrate (IMDUR) CR tablet 30 mg (CANCELED) 30 mg, Oral, DAILY, First dose on Hafsa 11/29/14 at 0900, Until Discontinued, Cath (Recovery-Hospital Unit), Routine 08 (Given - Provid er: Ravinder Lynne RN) lisinopril (PRINIVIL;ZESTRIL) tablet 10 mg (CANCELED) 10 mg, Oral, DAILY, First dose on Wed11/28/14 at 1500, Until Discontinued, Routine 1500 (Not Given - Provider: Keyshawn Forrester RN - Reason: Patient/family refused - Comment: Took at home in AM) 0853 (Given - Provider: Ravinder Lynne RN) metoprolol succinate (TOPROL-XL) XL tablet 100 mg (CANCELED) 100 mg, Oral, DAILY, First dose on Hafsa 11/29/14 at 0900, Until Discontinued, Cath (Recovery-Hospital Unit), Routine 0853 (Given - Provid er: Ravinder Lynne RN) sodium chloride 0.9 % flush 5 mL (CANCELED) 5 mL, Intravenous, EVERY 12 HOURS, First dose on Wed11/28/14 at 0815, Until Discontinued, Cath (Day of Procedure), Routine 08 (Not Given - Provider: Keyshawn Forrester RN - Reason: Transfer to a Procedural area)2014 (Not Given - Provider: Rhoda Jain RN - Reason: See comment - Comment: IV fkuids) 0853 (Given - Provider: Star Guera, RN) tamsulosin (FLOMAX) capsule 0.4 mg (CANCELED) 0.4 mg, Oral, DAILY, First dose on Wed11/28/14 at 1500, Until Discontinued, Cath (Recovery-Hospital Unit), Routine 2047 (Given - Provider: Rhoda Jain, RN) 0853 (Given - Provider: Ravinder Lynne RN) Continuous Medication Order 11/27/2014 11/28/2014 11/29/2014 sodium chloride 0.9% infusion () 200 mL/hr, Intravenous, CONTINUOUS, Starting on Wed11/28/14 at 0815, Until Wed11/28/14 at 1214, Cath (Day of Procedure) 0918 (New Bag - Provider: Ave Robledo RN) sodium chloride 0.9% infusion () 100 mL/hr, Intravenous, CONTINUOUS, Starting on Wed11/28/14 at 1315, Until Wed11/28/14 at 2314, Cath (Recovery-Hospital Unit) 1300 (New Bag - Provider: Myra Ernst RN) PRN Medication Order 11/27/2014 11/28/2014 11/29/2014 bivalirudin (ANGIOMAX) 250 mg in sodium chloride 0.9% 50 mL infusion (GYM INSTRUCTOR) (CANCELED) CONTINUOUS PRN, Starting on Wed11/28/14 at 1028, Until Wed11/28/14 at 1215, Cath (Intra-Procedure), Routine 1028 (New Bag - Provider: Hernando Coffman RN) bivalirudin (ANGIOMAX) bolus from bag (CANCELED) ONCE PRN, Starting on Wed11/28/14 at 1025, Until Wed11/28/14 at 1211, Intra-Operative (Intra-Procedure), Routine 1025 (Given - Provider: Tacho Holley RN) fentaNYL 50 mcg/mL multi-dose injection (CANCELED) ONCE PRN, Starting on Wed11/28/14 at 1109, Until Wed11/28/14 at 1211, Cath (Intra-Procedure), Routine 1109 (Given - Provider: Matthew Beltran, WALLY) heparin (porcine) injection (CANCELED) ONCE PRN, Starting on Wed11/28/14 at 0957, Until Wed11/28/14 at 1211, Cath (Intra-Procedure), Routine 0957 (Given - Provider: Tacho Holley, RN) iohexol (OMNIPAQUE) 350 mg iodine/mL injection (CANCELED) ONCE PRN, Starting on Wed11/28/14 at 1210, Until Wed11/28/14 at 1211, Cath (Intra-Procedure), Routine 1210 (Given - Provider: Mela Beckford MD) lidocaine (XYLOCAINE) 10 mg/mL (1 %) injection 3 mg (COMPLETED) 3 mg (0.3 mL), Subcutaneous, ONCE PRN, 1 dose, Starting on Wed11/28/14 at 0750, Until Wed11/28/14 at 0950, with discomfort with PIV insertion, Cath (Day of Procedure), Routine 0950 (Given - Provider: Matthew Hatfield MD - Comment: right groin) midazolam (PF) (VERSED) 1 mg/mL multi-dose injection (CANCELED) ONCE PRN, Starting on Wed11/28/14 at 1109, Until Wed11/28/14 at 1211, Cath (Intra-Procedure), Routine 1109 (Given - Provider: Matthew Beltran RN) documented in this encounter Care Teams Research Intern Relationship Specialty Start Date End Date Lulú Toribio MD [address] [place], [place] [address] [place] [address] PCP - General 09/02/10 documented as of this encounter
--- OUTSIDE RECORDS SUMMARY | 2024-10-27 00:14 | XMS_ITS | Encounter Summary ---
Author Organization [facility] Address [facility] [place] [address] Care Team Providers Care Poultry Farmworker Name Role Phone Lulú Toribio MD Primary Care Provider [phone] Reason for Visit * Reason Comments Coronary Artery Disease Encounter Details Date Type Department Care Team (Late st Contact Info) Description 11/16/2012 11:00 AM EST Follow-Up Cardiology at [address] [id number] Mejia Luna MD [facility] [place] [address] CAD (coronary artery disease) (Primary Dx) Discharge Disposition: Home Social History Tobacco Use Types Packs/Day Years Used Date Smoking Tobacco: Never Sex and Gender Information Value Date Recorded Sex Assigned at Not on file Gender Identity Not on file Sexual Orientation Not on file documented as of this encounter Last Filed Vital Signs Vital Sign Reading Time Taken Comments Blood Pressure 132/68 11/16/2012 11:06 AM EST Pulse 76 11/16/2012 11:06 AM EST Temperature - - Respiratory Rate - - Oxygen Saturation - - Inhaled Oxygen Concentration - - Weight 90.7 kg (200 lb) 11/16/2012 11:06 AM EST Height 177.8 cm (5' 10) 11/16/2012 11:06 AM EST Body Mass Index 28.7 11/16/2012 11:06 AM EST documented in this encounter Progress Notes * Mejia Luna - 11/16/2012 11:07 AM EST Subjective: Patient ID: Daren Olguin is a 66 y.o. male. HPI Reason for Visit: Follow-up office visit Dear Lulú: Daren comes in today for follow-up of bypass surgery and left main stenting. He is doing great. Issues include the followin. 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 He and his are very happy. They enjoy custodial very much. He does not smoke. He drinks minimally. 2. Family History: Strong family history for coronary disease. 3. Hypertension: Generally under control. 132/68 4. Diabetes: Blood sugars have been improved. GLUCOSE 159,HGBA1C 6.6. NOW ON METFORMIN. 5. Weight loss: He is gradually doing better. He has gone from 231 down to 208, TO 200 TODAY!. His goal is to get less than 200. He has done very well with this. 6. Exercise: He does regular exercise, two miles daily, no limitation. He is doing well with this. 7. ASCVD: As you know, he had a bypass in 2004 with a GOMEZ to the LAD and a vein graft to the ramus. The circumflex was too small to bypass and had distal disease. His LV function was preserved. He had a V-fib arrest and ended up having a repeat cath IN 2005 with stenting to the left main and the proximal circumflex. The distal circumflex was left alone. He has had no angina. A stress echo 2 years ago showed no ischemia to stage 4 of the Navneet protocol and heart rate of 130, 84% of predicted. This is perfect. HE HAS HAD NO ANGINA. STRESS TEST TODAY WAS NEGATIVE FOR ANGINA, HE HAD NSSTT WAVE CHANGES, ECHO REVEALED NORMAL EF=60%, THERE WAS MILD INFERIOR BASAL ISCHEMIA. 8. History of V-fib arrest: No recurrent episodes. No inducible arrhythmias . 9. LIPID HISTORY: MOST RECENTLY 147/38/79 TRIGS 247 Review of Systems Constitutional: Negative. HENT: Negative. Eyes: Negative. Respiratory: Negative. Cardiovascular: Negative. Gastrointestinal: Negative. Genitourinary: Negative. Musculoskeletal: Negative. Neurological: Negative. Hematological: Negative. Psychiatric/Behavioral: Negative. Objective: Physical Exam Constitutional: He is oriented to person, place, and time. He appears well- developed and well-nourished. HENT: Head: Normocephalic. Eyes: Conjunctivae are normal. Pupils are equal, round, and reactive to light. Neck: Normal range of motion. Cardiovascular: Normal rate and regular rhythm. AMANDA 132/68 PULSE 76 WEIGHT 200 Pulmonary/Chest: Effort normal. He has no rales. Abdominal: Soft. Bowel sounds are normal. Musculoskeletal: Normal range of motion. Neurological: He is alert and oriented to person, place, and time. He has normal reflexes. Skin: Skin is warm and dry. Assessment and Plan: ASSESSMENT: DOING WELL WITH EXCELLENT EXERCISE TOLERANCE. MINIMAL INFERIOR BASAL ISCHEMIA. NO INDICATION FOR CATH AT THIS TIME. THE ISCHEMIA LIKELY DUE TO DISTAL CIRC DISEASE WHICH COULD NOT BE INTERVENED ON. PLAN: 1. NO CATH , CALL FOR CHANGE IN SYMPTOMS, I WILL FOLLOW UP MARKET PRESIDENT. MAINTAIN THERAPY FOR BPAND LIPIDS! documented in this encounter Plan of Treatment Not on file documented as of this encounter Visit Diagnoses Diagnosis CAD (coronary artery disease)- Primary Coronary atherosclerosis of unspecified type of vessel, [place] or graft documented in this encounter Care Teams Poultry Farmworker Relationship Specialty Start Date End Date Lulú Toribio MD [address] [facility] [address] [place] [address] PCP - General 09/02/10 documented as of this encounter
--- OUTSIDE RECORDS SUMMARY | 2024-10-27 00:14 | XMS_ITS | Encounter Summary ---
[place] [address] Care Team Providers Care Nailer Operator Name Role Phone Lulú Toribio MD Primary Care Provider [phone] Encounter Details Date Type Department Care Team (Late st Contact Info) Description 11/12/2011 12:55 PM EST - 11/12/2011 11:59 PM EST Hospital Encounter [place] [phone] Social History Tobacco Use Types Packs/Day Years Used Date Smoking Tobacco: Never Sex and Gender Information Value Date Recorded Sex Assigned at Not on file Gender Identity Not on file Sexual Orientation Not on file documented as of this encounter Medications at Time of Discharge Medication Sig Dispensed Refills Start Date End Date aspirin 81 mg EC tablet Take 81 [...] = 1 Tablet(s), PO, Once daily 12/22/2010 sildenafil (VIAGRA) 50 mg tablet 12/22/2010 11/28/2014 documented as of this encounter Plan of Treatment Not on file documented as of this encounter Visit Diagnoses Not on filedocumented in this encounter Care Teams Nailer Operator Relationship Specialty Start Date End Date Lulú Toribio MD [address] [place] [address] PCP - General 09/02/10 documented as of this encounter
--- OUTSIDE RECORDS SUMMARY | 2024-10-27 00:14 | XMS_ITS | Encounter Summary ---
[place] [address] Care Team Providers Care Wiping Cloth Cutter Name Role Phone Lulú Toribio MD Primary Care Provider [phone] Encounter Details Date Type Department Care Team (Late st Contact Info) Description 12/22/2010 9:44 AM EDT - 12/22/2010 11:59 PM EDT Hospital Encounter Non-Invasive [place] [address] Social History Tobacco Use Types Packs/Day Years Used Date Smoking Tobacco: Never Assessed Sex and Gender Information Value Date Recorded Sex Assigned at Not on file Gender Identity Not on file Sexual Orientation Not on file documented as of this encounter Medications at Time of Discharge Medication Sig Dispensed Refills Start Date End Date metoprolol succinate (TOPROL XL) 100 mg XL [...] on filedocumented in this encounter Care Teams Wiping Cloth Cutter Relationship Specialty Start Date End Date Lulú Toribio MD [address] [place] [address] [address] [place] [address] PCP - General 09/02/10 documented as of this encounter
--- OUTSIDE RECORDS SUMMARY | 2024-10-27 00:14 | XMS_ITS | Referral Summary ---
Author Organization [facility] Address [address] [place] [address] Care Team Providers Care Briquetter Operator Name Role Phone Remedios Troncoso MD Primary Care Provide r Unavailable Social History Tobacco Use Types Packs/Day Years Used Date Smoking Tobacco: Never Assessed Interpersonal Safety Answer Date Record ed Physically Hurt Never 05/12/2020 Verbally Threaten Not on file 05/12/2020 Sex and Gender Information Value Date Recorded Sex Assigned at Not on file Legal Sex Male 18:37 EST Gender Identity Not on file Sexual Orientation Not on file Plan of Treatment Not on file Care Teams Briquetter Operator Relationship Specialty Start Date End Date Remedios Troncoso MD PCP - General 07/04/10
--- OUTSIDE RECORDS SUMMARY | 2024-10-27 00:14 | XMS_ITS | Encounter Summary ---
[place] [address] Care Team Providers Care Groundsman Name Role Phone Lulú Toribio MD Primary Care Provider [phone] Encounter Details Date Type Department Care Team (Late st Contact Info) Description 11/28/2014 8:30 AM EST - 11/28/2014 9:30 AM EST Surgery Ear Mold [place] [id number] Navneet Beckford MD CARDIAC CATHETERIZATION Social History Tobacco Use Types Packs/Day Years [...] Sign Reading Time Taken Comments Blood Pressure 105/51 11/28/2014 7:49 AM EST Pulse 50 11/28/2014 7:49 AM EST Temperature 36.3 ??C (97.3 ??F) 11/28/2014 7:49 AM ES T Respiratory Rate 16 11/28/2014 7:49 AM EST Oxygen Saturation 100% 11/28/2014 7:49 AM EST Inhaled Oxygen Concentration - - Weight 90.3 kg (199 lb) 11/28/2014 7:49 AM EST Height 177.8 cm (5' 10) 11/28/2014 7:49 AM EST Body Mass Index 28.55 11/28/2014 1:50 PM EST documented in this encounter Discharge Instructions * Discharge Instructions* Matthew Robbins MD - 11/29/2014 8:14 AM EST Activity [...] your cardiac cath or angioplasty, contact the poultry offal icer c iron worker by calling [facility] at . * Patient Instructions* Matthew Robbins MD - 11/28/2014 3:00 PM EST Anti-coagulation follow up: N/A Call your doctor if: Chest pain, dyspnea, pain or swelling in legs occurs. If you have non-emergent questions between now and the time of your follow up appointments: During 8am-5pm Wednesday through Wednesday call [phone] to speak with a nurse in the cardiology clinic All other times call [phone] and ask to speak to the central control room operator c iron worker. Return to work: One week Driving: No driving for 48 hours after catheterization. Follow up Appointments: Bottler Follow up with Dr. Ron Huerta as [...] 8:27 AM EST Care Management (OCM)/ Clinical Information Technology Consultant ( CRC) CRC Service ; Cardiology, Cardio Thoracic and Thoracic Gama SALINAS, RN Pager [phone] Record reviewed and patient discussed with multidisciplinary [...] 4. Discharge today. Matthew Hatfield MD Pager #[phone] 11/29/2014 Interventional Staff Discharge Day Note: I [...] - 11/28/2014 2:43 PM EST Daren Olguin [id number] 11/28/2014 68 y.o. Admission History and Physical [...] fibrillatory arrest during a walking race in [place] in 2005. He underwent left heart catheterization in [place], which showed patent grafts and generally unchanged [...] A Promus Premier 2.25 x 16 mm FRECNH was placed in the proximal LAD, postdilated [...] fibrillatory arrest during a walking race in [place] in 2005. He underwent left heart catheterization in [place], which showed patent grafts and generally unchanged [...] consent in chart. Matthew Hatfield MD Interventional Clinical Project Assistant Pager # [phone] documented in this encounter Miscellaneous Notes * Consult Note - Bing Matos RN - 11/29/2014 9:21 AM EST Daren Olguin was seen today by Cardiac Rehabilitation for: (no ) An activity evaluation - Done by staffing manager (yes ) Educational packet regarding CAD, cardiac risk factors, and managing angina given to patient. Heart diagram reviewed. This is familiar to him with his h/o CAD He exercises at gym 3 days/week; golfs, walking 9 holes in summer (yes ) Participation to the outpatient cardiac rehabilitation program at [facility] was discussed. Patient agrees to a referral to this program. The referral will be sent at discharge and the patient should be contacted by the Program within 1- 2 weeks from discharge. * Discharge Summary - Navneet Beckford MD - 11/29/2014 8:12 AM EST Discharge Summary Patient Name: Daren Olguin Patient Age: 68 y.o. Language: French Race: White Ethnicity: Not nor Admit date: [...] Chiaco, John Michael S, MD Clinic Pager #[phone] Discharge Diagnoses (Hospital Problems) and Secondary Diagnoses (Chronic Problems): Active Hospital Problems Diagnosis ??? CAD (coronary artery disease) 1. CABG x2 in 2004 (GOMEZ to LAD, SVG to ramus) 2. PCI to the left main and proximal circumflex coronary artery in 2005 (Taxus FRENCH x2) after an episode of ventricular fibrillatory arrest. 3. [facility] (11/28/2014) Patent GOMEZ to LAD and SVG [...] an episode of ventricular fibrillatory arrest. 3. [facility] (11/28/2014) Patent GOMEZ to LAD and SVG [...] Hypertension ??? CIS - Obesity Operations/Major Procedures: [facility] (11/28/2014) Patent GOMEZ to LAD and SVG [...] fibrillatory arrest during a walking race in [place] in 2005. He underwent left heart catheterization in [place], which showed patent grafts and generally unchanged [...] appointments: During 8am-5pm Wednesday through Wednesday call [phone] to speak with a nurse in the cardiology clinic All other times call [phone] and ask to speak to the central control room operator c iron worker. Return to work: One week Driving: No driving for 48 hours after catheterization. Follow up Appointments: Bottler Follow up with Dr. Ron Huerta as [...] your cardiac cath or angioplasty, contact the poultry offal icer c iron worker by calling [facility] at . Discharge References/Attachments None Matthew Hatfield MD Pager #[phone] * Plan of Care - Rhoda Jain [...] Outcome: Ongoing (Interventions Implemented as Appropriate) 11/28/14 13511/28/14 163 Safety Interventions Infection Prevention -- blood glucose management Coping/Psychosocial Response Interventions Counseling calming techniques promoted;emotional support provided;goal setting facilitated -- Goal: Discharge Needs Assessment Outcome: Ongoing (Interventions Implemented as Appropriate) 11/28/14 1633 11/28/141948 Discharge Needs Assessment Concerns to be Addressed [...] Routine 11/29/2014 4:10 AM EST CARDIAC ENZYMES ([facility]P) Routine 11/29/2014 4:10 AM EST CBC (WITH DIFF) Routine 11/29/2014 4:10 AM EST DIRT CONTRACTOR SCAN 11/29/2014 12:00 AM EST CARDIAC CATH [...] (Bezet) 411 ms MUSE SYSTEM Calculated P [place] 10 degrees MUSE SYSTEM Calculated T [place] -9 degrees MUSE SYSTEM INTERPRETATION Sinus bradycardia [...] HEMATOLOGY ORDERABLE S CERNER MILLENNIUM * (ABNORMAL) Hemogram (11/29/2014 4:10 AM EST) [...] of Diabetes Mellitus, Position Statement from the [place] Diabetes Association. ??Diabetes Care, Volume 33, Supplement 1, Oct 2009 Blood Urea Nitrogen 12 10 - 20 mg/dL CERNER MILLENNIUM Creatinine 0.85 0.80 - 1.50 mg/dL CERNER MILLENNIUM Comment: Please note that the pediatric reference intervals supplied above were not validated at [facility]. Results from pediatric patients should be interpreted [...] the following links into your internet browser. [email or web address] Blood specimen (specimen) 11/29/2014 4:10 AM EST 11/29/2014 4:34 AM EST Narrative Resulting Agency Comment Spec In Lab Navneet Beckford MD CHEMISTRY ORDERABLES GABRIELLE MONTES * Cardiac Enzymes (11/29/2014 4:10 AM EST) Troponin-T <0.03 <=0.03 ng/mL KELYNER GEORGEENNIUM Comment: 0.03 ng/mL: Represents the 99th percentile upper reference limit for normals. >0.03 ng/mL: Elevated cardiac troponin T level indicative of myocardial damage. Diagnosis of acute, evolving or recent AL requires a typical rise and gradual fall [...] consensus document of the Joint Society of Cardiology/[place] College of Cardiology Committee for the redefinition of myocardial infarction. ??Journal of the [place] College of Cardiology 2000; 36: 959-969] Creatine Kinase 89 0 - 200 unit/L GABRIELLE VAZQUEZLOLAVLADIMIR Blood specimen (specimen) 11/29/2014 4:10 AM EST 11/29/2014 4:34 AM EST Narrative Resulting Agency Comment Spec In Lab Navneet Beckford MD CHEMISTRY ORDERABLES Performing Organization Address [facility]/ZIP Co de Phone Number GABRIELLE MONTES * SCAN DOC: CARDIAC CATH (11/29/2014 12:00 AM EST) Anatomical Region Laterality Modality Other Scanning Provider MEDIA MGR SCAN EXT O RDR/RSLT * SCAN DOC: DIRT CONTRACTOR (11/29/2014 12:00 AM EST) Anatomical Region Laterality Modality Other Scanning Provider MEDIA MGR SCAN EXT O RDR/RSLT * POCT Glucose (11/28/2014 2:02 PM EST) Glucose, POC 104 60 - 199 mg/dL [facility]ENTERRAVEN VAZQUEZSolarCity New Zealand LimitedUNC [facility]ALTH Comment: Supplemental ranges: <140 mg/dL before meals <180 mg/dL all other times of the day Blood specimen (specimen) 11/28/2014 2:02 PM EST 11/28/2014 2:02 PM EST Matthew Lewis MD POINT OF CARE TEST O RDERABLES Performing Organization Address [facility] Co de Phone Number GABRIELLE MONTES * EKG 12 Lead (11/28/2014 1:05 PM EST) Ventricular rate 54 BPM MUSE SYSTEM Atrial Rate 54 BPM MUSE SYSTEM P-R Interval 168 ms MUSE SYSTEM QRS Duration 86 ms MUSE SYSTEM Q-T Interval 420 ms MUSE SYSTEM QTC Calculated (Bezet) 398 ms MUSE SYSTEM Calculated P [place] 36 degrees MUSE SYSTEM Calculated R [place] 0 degrees MUSE SYSTEM Calculated T [place] -20 degrees MUSE SYSTEM INTERPRETATION Sinus bradycardia Inferior infarct (cited on or before 28-NOV-2014) When compared with ECG of 28-NOV-2014 08:13, No significant change was found Confirmed by MD Davis Timothy ([id number]) on 11/29/2014 9:47:40 AM MUSE SYSTEM 11/28/2014 1:05 PM EST 11/29/2014 9:47 AM EST Navneet Beckford MD ECG ORDERABLES Performing Organization Address City/[facility] Co de Phone Number MUSE SYSTEM * EKG 12 Lead (11/28/2014 8:13 AM EST) Ventricular rate 54 BPM MUSE SYSTEM Atrial Rate 54 BPM MUSE SYSTEM P-R Interval 160 ms MUSE SYSTEM QRS Duration 94 ms MUSE SYSTEM Q-T Interval 428 ms MUSE SYSTEM QTC Calculated (Bezet) 405 ms MUSE SYSTEM Calculated P [place] -5 degrees MUSE SYSTEM Calculated R [place] 1 degrees MUSE SYSTEM Calculated T [place] -9 degrees MUSE SYSTEM INTERPRETATION Sinus bradycardia Minimal voltage criteria for LVH, may be normal variant Inferior infarct , age undetermined Abnormal ECG When compared with ECG of 05-MAY-2006 11:57, Inferior infarct is now Present Confirmed by MD JANET, NAVNEET ([id number]) on 11/28/2014 11:12:59 PM MUSE SYSTEM 11/28/2014 8:13 AM EST 11/28/2014 11:12 PM EST Matthew Lewis MD ECG ORDERABLES Performing Organization Address [facility] de Phone Number MUSE SYSTEM * POCT Glucose (11/28/2014 7:55 AM EST) Glucose, POC 161 60 - 199 mg/dL GABRIELLE [facility]PL[facility]ENT[facility] Comment: Supplemental ranges: <140 mg/dL before meals <180 mg/dL all other times of the day Blood specimen (specimen) 11/28/2014 7:55 AM EST 11/28/2014 7:55 AM EST Matthew Lewis MD POINT OF CARE TEST O RDERABLES Performing Organization Address City/[facility] Co de Phone Number [facility]ENTERNephosity documented in this encounter Visit Diagnoses Diagnosis ASCVD (arteriosclerotic cardiovascular disease) Unspecified cardiovascular disease S/P coronary artery stent placement Postsurgical percutaneous transluminal coronary angioplasty status CAD (coronary artery disease) Coronary atherosclerosis of unspecified type of vessel, [place] or graft ASCVD (arteriosclerotic cardiovascular disease) Unspecified cardiovascular disease documented in this encounter Administered Medications Inactive [...] Given 11/28/2014 8:46 PM EST 80 mg bivalirudin (ANGIOMAX) 250 mg in sodium chloride 0.9% 50 mL infusion (HOME HELP AIDE) CONTINUOUS PRN, Starting on Wed11/28/14 at 1028, Until Wed11/28/14 at 1215, Cath (Intra-Procedure), Routine New Bag 11/28/2014 10:28 AM EST 157.5 mg/hr 31.5 mL/hr bivalirudin (ANGIOMAX) bolus from bag ONCE PRN, Starting on Wed11/28/14 at 1025, Until Wed11/28/14 at 1211, Intra-Operative (Intra-Procedure), Routine Given 11/28/2014 10:25 AM EST 67.5 mg clopidogrel (PLAVIX) tablet 75 mg 75 mg, Oral, DAILY, First dose on Hafsa 11/29/14 at 0900, Until Discontinued, Routine Given 11/29/2014 [...] Given 11/28/2014 9:27 AM EST 25 mg fentaNYL 50 mcg/mL multi-dose injection ONCE PRN, Starting on Wed11/28/14 at 1109, Until Wed11/28/14 at 1211, Cath (Intra-Procedure), Routine Given 11/28/2014 11:09 AM EST 25 mcg heparin (porcine) injection ONCE PRN, Starting on Wed11/28/14 at 0957, Until Wed11/28/14 at 1211, Cath (Intra-Procedure), Routine Given 11/28/2014 9:57 AM EST 2,000 Units iohexol (OMNIPAQUE) 350 mg iodine/mL injection ONCE PRN, Starting on Wed11/28/14 at 1210, Until Wed11/28/14 at 1211, Cath (Intra-Procedure), Routine Given 11/28/2014 12:10 PM EST 210 mLs isosorbide mononitrate (IMDUR) CR tablet 30 mg 30 mg, Oral, DAILY, First dose on Hafsa 11/29/14 at 0900, Until Discontinued, Cath (Recovery-Hospital Unit), Routine Given 11/29/2014 8:53 AM EST 30 mg lidocaine (XYLOCAINE) 10 mg/mL (1 %) injection 3 mg 3 mg (0.3 mL), Subcutaneous, ONCE PRN, 1 dose, Starting on Wed11/28/14 at 0750, Until Wed11/28/14 at 0950, with discomfort with PIV insertion, Cath (Day of Procedure), Routine Given 11/28/2014 9:50 AM EST 100 mg lisinopril (PRINIVIL;ZESTRIL) tablet 10 mg 10 mg, Oral, DAILY, First dose on Wed11/28/14 at 1500, Until Discontinued, Routine Given 11/29/2014 8:53 AM EST 10 mg metoprolol succinate (TOPROL-XL) XL tablet 100 mg 100 mg, Oral, DAILY, First dose on Hafsa 11/29/14 at 0900, Until Discontinued, Cath (Recovery-Hospital Unit), Routine Given 11/29/2014 8:53 AM EST 100 mg midazolam (PF) (VERSED) 1 mg/mL multi-dose injection ONCE PRN, Starting on Wed11/28/14 at 1109, Until Wed11/28/14 at 1211, Cath (Intra-Procedure), Routine Given 11/28/2014 11:09 AM EST 1 mg sodium chloride 0.9 % flush 5 [...] 11/28/2014 1:00 PM EST 100 mL/hr 100 mL/hr tamsulosin (FLOMAX) capsule 0.4 mg 0.4 mg, [...] Hafsa 11/29/14 at 0900, Until Discontinued, Routine 851 (Given - Provid er: Ravinder Lynne RN) diaZEPam (VALIUM) tablet 5 mg (COMPLETED) 5 mg, Oral, ONCE, 1 dose, On Wed11/28/14 at 0815, Cath (Day of Procedure), Routine 925 (Given - Provider: Ave Robledo RN) diphenhydrAMINE [...] Until Discontinued, Cath (Day of Procedure), Routine 814 (Not Given - Provider: Keyshawn Forrester RN - Reason: Transfer to a Procedural area)2014 (Not Given - Provider: Rhoda Jain RN - Reason: See comment - Comment: IV fkuids) 0853 (Given - Provider: Ravinder Lynne RN) tamsulosin (FLOMAX) capsule 0.4 mg (CANCELED) 0.4 mg, Oral, DAILY, First dose on Wed11/28/14 at 1500, Until Discontinued, Cath (Recovery-Hospital Unit), Routine 2046 (Given - Provider: Rhoda Jain RN) 0853 (Given - Provider: Ravinder Lynne [...] in sodium chloride 0.9% 50 mL infusion (HOME HELP AIDE) (CANCELED) CONTINUOUS PRN, Starting on Wed11/28/14 at [...] 1109 (Given - Provider: Matthew Beltran RN) heparin (porcine) injection (CANCELED) ONCE PRN, Starting on Wed11/28/14 at 0957, Until Wed11/28/14 at 1211, Cath (Intra-Procedure), Routine 0957 (Given - Provider: Tacho Holley RN) iohexol (OMNIPAQUE) 350 mg iodine/mL injection [...] Cath (Intra-Procedure), Routine 1109 (Given - Provider: Mathtew Beltran RN) documented in this encounter Care Teams Groundsman Relationship Specialty Start Date End Date Lulú Toribio MD [address] [place] [address] PCP - General 09/02/10 documented as of this encounter
--- OUTSIDE RECORDS SUMMARY | 2024-10-27 00:14 | XMS_ITS | Encounter Summary ---
Author Organization [facility] Address [address] [place] [address] Care Team Providers Care Survey Director Name Role Phone Unavailable Primary Care Provider Unavailabl e Encounter Details Date Type Department Care Team (Late st Contact Info) Description 07/02/2010 Results Only [facility] - [facility] ([facility] [address], [place] [address] Mukesh Simons MD [address] [place] [address] Social History Tobacco Use Types Packs/Day Years [...] Procedure Name Priority Date/Time Associated Diagnosis Comments SURGICAL PATHOLOGY Routine 07/02/2010 0:00 EDT documented in this encounter Results * SURGICAL PATHOLOGY (07/02/2010 0:00 EDT) Pathology Report: SURGICAL PATHOLOGY REPORT ? Reports generated via electronic interface contain original data; ? however they are lacking the format of the original report. ? Caution should be taken when reading/interpreti ng unformatted reports. ? Name: ? SHARIF, RAYMUNDO ? Accession #: ? [id number] ? : ? 1945 (Age: 64) ??M ? Collect Date: ? 07/02/2010 ? Location: ? [facility] ? Receive Date: ? 07/02/2010 ? Provider: MUKESH SIMONS MD ? Copy to: BERENICE SOLANO MD ? Final Pathologic Diagnosis: ? A. ?Colon, ascending, polyp, biopsies: ? 1. ?Hyperplastic polyp. ? B. ?Colon, descending, polyp, biopsies: ? 1. ?Tubular adenoma. ? Document reviewed and electronically signed by: ? Jermaine Crawford, MBChB ? Report ??Date: 07/07/2010 14:59 ? By the signature above, the attending physician certifies that he/she has ? personally conducted a gross and/or microscopic examination of the described ? specimens and rendered or confirmed the above diagnosis. ? Specimen(s) Received: ? A. ?Ascending colon polyp (#1) ? B. ? Descending colon polyp (#2) ? Clinical History: ? (+) FH colon Ca (sister @ 58 yrs) ? Gross Description: ? Received in Hannahande's fixative labelled Daren Olguin and 1 ??ascend ? colon polyp is a 0.5 x 0.4 x 0.3 cm polypoid structure. ??Also present are six ?? seed-like structures. ??The resection margin of the polyp is inked and the ? specimen is bisected and submitted entirely as (A). ??The seed-like structures ?? are not submitted for processing, but have been saved in their original ? container. ? Received in Sagar's fixative labelled Daren Olguin and 2 ??descending ? colon polyp are two biopsies measuring 0.2 x 0.2 x 0.2 cm and 0.4 x 0.3 x 0.2 ?? cm. ??The specimens are submitted intact as (B). ??(AMARI [employer])/lgk ? End of Report ? [facility] 07/02/2010 07/02/2010 8:2 1 EDT us Mukesh Simons MD PATHOLOGY ORDERABLES Final Resul t Performing Organization Address City/State/[facility] Co de Phone Number [facility] [address] [place] [address] documented in this encounter Visit Diagnoses Not on filedocumented in this encounter
--- OUTSIDE RECORDS SUMMARY | 2024-10-27 00:14 | XMS_ITS | Encounter Summary ---
Author Organization [facility] Address [address] [place] [address] Care Team Providers Care Prescription Clerk Name Role Phone Unavailable Primary Care Provider Unavailabl e Encounter Details Date Type Department Care Team (Latest Contact Info) Description 02/25/2006 20:24 EDT - 02/28/2006 11:59 EDT Hospital Encounter [facility] Cardiac/Telemetry Unit [address], [place] [id number] Sav Green MD Discharge Disposition: Home or Self Care Social History Tobacco Use Types Packs/Day Years Used Date Smoking Tobacco: Never Assessed Sex and Gender Information Value Date Recorded Sex Assigned at Not on file Legal Sex Male 18:37 EST Gender Identity Not on file Sexual Orientation Not on file documented as of this encounter Discharge Summaries * Daren Lang MD - 02/28/2006 0000 EDT INPATIENT DISCHARGE SUMMARY Admission Date: 02/25/2006 Discharge Date: 02/28/2006 February 28, 2006 David Gill MD [facility] Emergency Department [address] [place] [address] DIAGNOSES: 1. Non ST elevation myocardial infarction. 2. Ventricular arrest secondary to ventricular fibrillation during myocardial infarction. 3. Hypertension. 4. Coronary artery disease status post previous coronary bypass graft. 5. Benign prostatic hyperplasia. 6. Dyslipidemia. PROCEDURES PERFORMED DURING HOSPITALIZATION: 1. Cardiac catheterization with coronary intervention to left main, left circumflex coronary artery. 2. Echocardiogram. DISCHARGE CONDITION: Improved. Dear Dr. Gill, Mr. Olguin was running in a 5K race in [place] when he developed chest pain. Unfortunately, he continued to exercise with the chest pain and subsequentlyfelt diaphoretic and had a sudden onset of syncope. He was discovered down and resuscitated with an AED showed ventricular fibrillation and successfully converted with a single shock. He was transferred to our institution for further care. He did have an elevation in his troponin to 7. On February 26, 2006, he underwent cardiac catheterization. This study demonstrated a 70% obstruction tothe distal left main coronary artery. 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 The left circumflex had a long 80-90% obstruction and was subtotaled distally. The right coronary artery, which is codominant, had significant obstructions. The ramus intermedius had 50-70% proximal obstruction. A GOMEZ to the left anterior descending coronary artery was patent. A vein graft to the ramus intermedius was patent. Mr. Olguin underwent percutaneous intervention to his left main and left circumflex lesion with placement of a Cypher 3.0/18 stent in the left circumflex and a Cypher 3.5/13 in the left main and leftcircumflex. There was no more than a 10% residual stenosis at the end of the procedure. His postprocedure hospital course was uncomplicated. He did have an echocardiogram to assess left ventricular function. He had an estimated ejection fraction of 65% with mild ventricular hypertrophy.The posterior base appeared hypokinetic on this study. During the hospitalization a cholesterol determined his LDL was 78 mg/dl. Because of his preserved ventricular function and association of ventricular fibrillation with chest pain and myocardial infarction, no further intervention from aelectrophysiologic standpoint was undertaken. His Toprol dose was increased. DISCHARGE MEDICATIONS: 1. Aspirin daily. 2. Lipitor 20 mg a day. 3. Plavix 75 mg a day. 4. Toprol XL 100 mg a day. He will follow up with both of you in the next several weeks. It certainly has been our pleasure toparticipate in his care. Please feel free to contact me with any questions. Sincerely, Signed by Daren Lang MD 03/02/2006 15:10 Santy Lang, Susnaa Lang MD Daren Lang MD - Daren Lang MD A - sb Job ID: [id number] Document ID: [id number] cc: MD Armaan Rivera MD Peter Weller, MD documented in this encounter Discharge Disposition Disposition Code Departure Means Destination Home or Self Care documented in this encounter Progress Notes * Aguilar Davis Jr., MD - 02/26/2006 0000 EDT INPATIENT UPDATE LETTER - 02/26/2006 February 26, 2006 David Gill MD [facility] Emergency Department [address] [place] [address] Admission Date: 02/25/[address] Gill, I had the pleasure of evaluating and treating Daren Waters the Cardiac Catheterization Laboratorytoday. As you know, Mr. Olguin is a 60-year-old male who was running a 5K race in [place] yesterday and experienced cardiac arrest. He was transferred to [facility] for further evaluation and management. Dr. Kendall performed diagnostic angiography revealing patent grafts to his ramus intermedius and to his left anterior descending artery. His non bypassed left circumflex system was compromised by a tight stenosis in the left main and ostial left circumflex. There was also distal disease in the left circumflex system. A left posterolateral branch filled via collaterals from the left internal mammary artery to the left anterior descending coronary artery. We performed coronary intervention to the codominant left circumflex artery. We needed to use a Venture catheter in order to steer the wire around the bend through an aneurysmal segment of the left anterior descending artery and into the left circumflex artery. We were able to successfully placed two Cypher drug- eluting stents from the left main into the left circumflex artery. We post dilated the left main stent with a 4.0 Quantum semi compliant balloon. procedure was without complications. There was normal flow with only a little bit of residual stenosis at the left main due to extensivecalcification. Mr. Olguin will be observed over the next 48 hours in our hospital for further ectopy after this procedure. I will also obtain an echocardiogram this afternoon to see what his LV function is. We started him on Plavix in the Ends Down Checker and he should remain on Plavix for one year after this procedure. Thank you for referring Mr. Olguin to the cardiology services at [facility]. Pleasefeel free to call at anytime if you have any questions or concerns. Sincerely, Signed by Aguilar Davis MD 03/01/2006 09:54 AProRocky Márquez MD Aguilar Davis MD - Aguilar Davis MD P - sb Job ID: [id number] Document ID: [id number] cc: MD Ron Franklin MD Gregory Macdonald, MD Peter Weller, MD documented in this encounter Plan of Treatment Not on file documented as of this encounter Procedures Procedure Name Priority Date/Time Associated Diagnosis Comments CREATININE Routine 02/28/2006 6:15 EDT COMPLETE BLOOD COUNT Routine 02/28/2006 6:15 EDT BUN Routine 02/28/2006 6:15 EDT MAGNESIUM Routine 02/28/2006 6:15 EDT CALCIUM Routine 02/28/2006 6:15 EDT ELECTROLYTES Routine 02/28/2006 6:15 EDT CREATININE Routine 02/27/2006 6:07 EDT COMPLETE BLOOD COUNT Routine 02/27/2006 6:07 EDT BUN Routine 02/27/2006 6:07 EDT MAGNESIUM Routine 02/27/2006 6:07 EDT CALCIUM Routine 02/27/2006 6:07 EDT ELECTROLYTES Routine 02/27/2006 6:07 EDT GLUCOSE, GLUCOMETER Routine 02/26/2006 1 7:13 EDT PV INSTALLER TECH PROCEDURE 02/26/2006 8: 51 EDT CREATININE Routine 02/26/2006 5:16 EDT TROPONIN I Routine 02/26/2006 5:16 EDT PTT Routine 02/26/2006 5:16 EDT COMPLETE BLOOD COUNT AND DIFFERENTIAL Routine 02/26/2006 5:16 EDT BUN Routine 02/26/2006 5:16 EDT CK MB WITH TOTAL CK Routine 02/26/2006 5 :16 EDT LIPID PROFILE (INCLUDES CHOLESTEROL, TRIGLYCERIDES, HDL, LDL) Routine 02/26/2006 5:16 EDT ELECTROLYTES Routine 02/26/2006 5:[address] HEAD WO CONTRAST 02/25/2006 2 1:58 EDT CALCIUM, IONIZED Routine 02/25/2006 21:2 2 EDT GLUCOSE, GLUCOMETER Routine 02/25/2006 2 1:04 EDT CREATININE Routine 02/25/2006 21:00 EDT TROPONIN I Routine 02/25/2006 21:00 EDT PTT Routine 02/25/2006 21:00 EDT PROTIME Routine 02/25/2006 21:00 EDT COMPLETE BLOOD COUNT AND DIFFERENTIAL Routine 02/25/2006 21:00 EDT TOTAL & DIRECT BILIRUBIN Routine 02/25/2006 21:00 EDT BUN Routine 02/25/2006 21:00 EDT ALT Routine 02/25/2006 21:00 EDT AST Routine 02/25/2006 21:00 EDT PHOSPHORUS Routine 02/25/2006 21:00 EDT ALKALINE PHOSPHATASE Routine 02/25/2006 21:00 EDT MAGNESIUM Routine 02/25/2006 21:00 EDT GLUCOSE, SERUM Routine 02/25/2006 21:00 EDT CK MB WITH TOTAL CK Routine 02/25/2006 2 1:00 EDT CALCIUM IONIZED Routine 02/25/2006 21:00 EDT ALBUMIN Routine 02/25/2006 21:00 EDT ELECTROLYTES Routine 02/25/2006 21:00 EDT documented in this encounter Results * MAGNESIUM (02/28/2006 6:15 EDT) Magnesium 2.0 1.7 - 2.8 mg/dl [facility] 02/28/2006 6:15 EDT 02/28/2006 6:29 EDT Sav Green MD CHEMISTRY & BLOOD GAS ORDERAB LES Final Result [facility] [address] [place] [address] * (ABNORMAL) ELECTROLYTES (02/28/2006 6:15 EDT) Sodium 133(L) 136 - 145 mEq/L [facility] Potassium 3.9 3.5 - 5.0 mEq/L [facility] Chloride 101 96 - 110 mEq/L [facility] CO2 29 24 - 32 mEq/L [facility] 02/28/2006 6:15 EDT 02/28/2006 6:29 EDT us Sav Green MD CHEMISTRY & BLOOD GAS ORDERAB LES Final Result Performing Organization Address [facility] de Phone Number [facility] [address] [place] [address] * CREATININE (02/28/2006 6:15 EDT) Creatinine 0.8 0.7 - 1.5 mg/dl [facility] 02/28/2006 6:15 EDT 02/28/2006 6:29 EDT us Sav Green MD HISTORICAL LAB FOR SQ LOAD Fi nal Result Performing Organization Address [facility] de Phone Number [facility] [address] [place] [address] * (ABNORMAL) HEMAGRAM (02/28/2006 6:15 EDT) WBC 8.29 4.0 - 10.4 K/cmm [facility] RBC 4.24(L) 4.36 - 5.78 M/cmm [facility] Hemoglobin 14.3 13.8 - 17.3 gm/dl [facility] HCT 40.9 39.5 - 50.2 % [facility] MCV 96(H) 81 - 95 fl [facility] MCH 33.6(H) 27.6 - 33.0 pg [facility] MCHC 34.9 32.8 - 36.4 gm/dl [facility] PLT 163 141 - 320 K/cmm [facility] RDW-CV 12.9 11.8 - 14.1 % [facility] 02/28/2006 6:15 EDT 02/28/2006 6:29 EDT us Sav Green MD HEMATOLOGY & PF4 ORDERABLES F inal Result Performing Organization Address [facility] Co de Phone Number [facility] [address] [place] [address] * CALCIUM (02/28/2006 6:15 EDT) Calcium 8.6 8.5 - 10.5 mg/dl [facility] Calculated Calcium 9.4 8.5 - 10.5 mg/dl [facility] 02/28/2006 6:15 EDT 02/28/2006 6:29 EDT us Sav Green MD CHEMISTRY & BLOOD GAS ORDERAB LES Final Result Performing Organization Address [facility] Co de Phone Number [facility] [address] [place] [address] * BUN (02/28/2006 6:15 EDT) Pathologist [facility] BUN 15 10 - 26 mg/dl [facility] 02/28/2006 6:15 EDT 02/28/2006 6:29 EDT us Sav Green MD CHEMISTRY & BLOOD GAS ORDERAB LES Final Result Performing Organization Address [facility] Co de Phone Number [facility] [address] [place] [address] * MAGNESIUM (02/27/2006 6:07 EDT) Magnesium 2.1 1.7 - 2.8 mg/dl [facility] 02/27/2006 6:07 EDT 02/27/2006 6:55 EDT us Sav Green MD CHEMISTRY & BLOOD GAS ORDERAB LES Final Result Performing Organization Address [facility] Co de Phone Number [facility] [address] [place] [address] * (ABNORMAL) ELECTROLYTES (02/27/2006 6:07 EDT) Sodium 133(L) 136 - 145 mEq/L [facility] Potassium 4.3 3.5 - 5.0 mEq/L [facility] Chloride 101 96 - 110 mEq/L [facility] CO2 29 24 - 32 mEq/L [facility] 02/27/2006 6:07 EDT 02/27/2006 6:55 EDT us Sav Green MD CHEMISTRY & BLOOD GAS ORDERAB LES Final Result Performing Organization Address [facility] de Phone Number [facility] [address] [place] [address] * CREATININE (02/27/2006 6:07 EDT) Creatinine 0.9 0.7 - 1.5 mg/dl [facility] 02/27/2006 6:07 EDT 02/27/2006 6:55 EDT us Sav Green MD HISTORICAL LAB FOR SQ LOAD Fi nal Result Performing Organization Address [facility] de Phone Number [facility] [address] [place] [address] * (ABNORMAL) HEMAGRAM (02/27/2006 6:07 EDT) WBC 8.87 4.0 - 10.4 K/cmm [facility] RBC 4.34(L) 4.36 - 5.78 M/cmm [facility] Hemoglobin 14.5 13.8 - 17.3 gm/dl [facility] HCT 41.9 39.5 - 50.2 % [facility] MCV 97(H) 81 - 95 fl [facility] MCH 33.4(H) 27.6 - 33.0 pg [facility] MCHC 34.6 32.8 - 36.4 gm/dl [facility] PLT 177 141 - 320 K/cmm [facility] RDW-CV 12.8 11.8 - 14.1 % [facility] 02/27/2006 6:07 EDT 02/27/2006 6:55 EDT us Sav Green MD HEMATOLOGY & PF4 ORDERABLES F inal Result Performing Organization Address [facility] Co de Phone Number [facility] [address] [place] [address] * CALCIUM (02/27/2006 6:07 EDT) Calcium 8.7 8.5 - 10.5 mg/dl [facility] Calculated Calcium 9.4 8.5 - 10.5 mg/dl [facility] 02/27/2006 6:07 EDT 02/27/2006 6:55 EDT us Sav Green MD CHEMISTRY & BLOOD GAS ORDERAB LES Final Result Performing Organization Address [facility] Co de Phone Number [facility] [address] [place] [address] * BUN (02/27/2006 6:07 EDT) BUN 16 10 - 26 mg/dl [facility] 02/27/2006 6:07 EDT 02/27/2006 6:55 EDT us Sav Green MD CHEMISTRY & BLOOD GAS ORDERAB LES Final Result [facility] [address] [place] [address] * (ABNORMAL) GLUCOSE, GLUCOMETER (02/26/2006 17:13 EDT) Glucose, Fingerstick 132(H) 70 - 110 mg/dl [facility] Field Crew Chief ID [id number] Test Performed by Nursing Services [facility] 02/26/2006 17:1 3 EDT 02/27/2006 0:26 EDT us Sav Green MD CHEMISTRY & BLOOD GAS ORDERAB LES Final Result Performing Organization Address [facility]/ZIP Co de Phone Number [facility] [address] [place] [address] * PV INSTALLER TECH PROCEDURE (02/26/2006 8:51 EDT) Anatomical Region Laterality Modality Other 02/26/2006 8:51 EDT Impressions 03/01/2006 9:42 EDT ?[facility] ? [address] ??[place], [place] [address] ? [phone] ? [email or web address] ?Final Interventional Cardiovascular Catheterization Report ?--- SUMMARY OF RESULTS --- > The patient has significant (>70%) lesions in ??2 coronary vessel(s). > The culprit artery was the LMCA and proximal Circumflex. Prior to PCI there was 90% stenosis in the culprit artery. > Following PCI as described in the procedure section, there was 0% residual stenosis and normal flow in the LMCA and proximal Circumflex. > ??We accomplished complete revascularization. ??There are severe stenoses remaining in 0 coronary vessels or grafts. > Interventional cardiac catheterization was performed without any significant complications. ? --- PLAN --- > Medical treatment is recommended including dual anti-platelet therapy for a minimum of 12 months. ? --- PATIENT PRESENTATION --- The patient is a 60 year old male. ??The primary indication for PCI was Post-[place] Anatomy. Additional indications include: arrythmia, NSTEMI. The patient has the following Comorbidities/Risk Factors: ??Family History, Hyperlipidemia, Hypertension, Known CAD, Past Smoker, Previous CABG. : 1945 ?Sex: male ?Height: 175cm ?Weight: 94kg ?BSA: 2.09 Allergies: ??Sulfa Drugs, cipro Pre-Ends Down Checker Values: ??HCT: 42.3 ?Platelets: 187.0 ?Creatinine:.9 ? --- PROCEDURE --- CARDIAC ANATOMY AND FUNCTION Natives with > 70% stenosis: Circumflex, Mid-Distal Circumflex, Proximal Circumflex LM Stenosis: 70% INTERVENTIONAL CARDIAC PROCEDURE PCI is indicated for this significant ACC/AHA class B2 lesion in the ??LMCA and proximal Circumflex vessel. A 7F XB3.5 guide catheter was chosen for the intervention . ??This catheter gave good engagement in the ostium of the LM. The lesion in the ??proximal Circumflex was crossed successfully with an 0.014 inch [employer] wire. This was aided by the Sumbola steerable catheter. We then inflated a 2.5 mm diameter of approximately 12 mm length Quantum [place] balloon in the ??LMCA and proximal Circumflex. ?? The maximal inflation pressure was 10-12 loren. Multiple pre-dilatations were performed. We then inflated a 3.0 mm diameter of approximately 18 mm length Cypher drug- eluting stent in the ??ostial to proximal Circumflex. ?? The maximal inflation pressure was >16 loren. We then inflated a 3.5 mm diameter of approximately 13 mm length Cypher drug- eluting stent in the ??LMCA overlapping with the ostial LCx stent. ?? The maximal inflation pressure was >16 loren. We then postdilated with a 3.5 mm diameter of approximately 12 mm length Quantum [place] balloon in the ??LMCA in to the ostium of the LCx. ?? The maximal inflation pressure was >16 loren. We then postdilated with a 4.0 mm diameter of approximately 12 mm length Quantum [place] balloon in the ??LMCA and into the ostium of the LCx. ?? The maximal inflation pressure was >16 loren. The right common femoral artery was normal in size and had no significant angiographic lesions. ??The femoral artery sheath was placed within the common femoral artery. The Access location was: ?? > Right Femoral Artery The Largest Arterial Sheath/Cath placed was ??7F The Hemostasis method used was: ??> Angioseal SELECTED MEDICATION ADMINISTERED DURING THE PROCEDURE: ??Bilvalirudin BOLUS, Bilvalirudin DRIP, Clopidogrel, FENTANYL, HEPARIN DRIP, VERSED ? (Please see PhysioLog report for complete list of medications used.) Referring Physician: ANGEL JULIAN,JOHANA Referring Physician 2: SILVESTRE JULIAN,ARMAAN Referring Physician 3: SANDRA JULIAN,DAVID Zhu Interventional Attending: Susan JULIAN, Aguilar Interventional Fellow: Heber JULIAN, Richie As the attending, supervising print shop stenographer, I was present for the entire procedure. Signature date/time: 03/01/2006 9:42:36 AM ? Narrative 03/01/2006 9:42 EDT ?[facility] ? [address] [facility] ??[place] [address] ? [phone] ? [email or web address] ?Final Diagnostic Cardiovascular Catheterization Report ?--- SUMMARY OF RESULTS --- > Diagnostic cardiac catheterization was performed without any significant complications. > The patient has significant (>70%) lesions in ??3 coronary vessel(s). > There are no graft(s) with 70% or more stenosis. ? --- PLAN --- > After careful review of the diagnostic images and findings, PCI of the proximal Circumflex and distal left main coronary artery is indicated immediately. ? --- PATIENT PRESENTATION --- The patient is a 60 year old male with the following indications: ??arrythmia, NSTEMI . The patient has the following Comorbidities/Risk Factors: ??Family History, Hyperlipidemia, Hypertension, Known CAD, Past Smoker, Previous CABG. : 1945 ?Sex: male ?Height: 175cm ?Weight: 94kg ?BSA: 2.09 Allergies: ??Sulfa Drugs, cipro Pre-Ends Down Checker Values: ??HCT: 42.3 ?Platelets: 187.0 ?Creatinine:.9 ? --- PROCEDURE --- DIAGNOSTIC CARDIAC PROCEDURE Under local anesthesia, the right femoral artery was accessed with a 6F sheath using modified Seldinger technique. ??A 6F JL4 catheter was introduced and positioned in the ascending aorta. Selective coronary arteriography was then performed using a 6F JL4 catheter to engage the left coronary artery and a 6F modified AR catheter to engage the right coronary artery. ??Right and left coronary arteriography were performed in multiple views. Selective mammary graft angiography was then performed using a OBEY catheter to engage the arterial graft conduit to the LAD. ??Angiography was performed in multiple views. Selective saphenous vein graft angiography was also performed using 6F modified AR catheter to engage the ostium of the vein graft to the Ramus. ??Angiography was performed in multiple views. The Access location was: ?? > Right Femoral Artery The Largest Arterial Sheath/Cath placed was ??7F The Hemostasis method used was: ??> Angioseal SELECTED MEDICATION ADMINISTERED DURING THE PROCEDURE: ??Bilvalirudin BOLUS, Bilvalirudin DRIP, Clopidogrel, FENTANYL, HEPARIN DRIP, VERSED ? (Please see PhysioLog report for complete list of medications used.) ?--- RESULTS --- HEMODYNAMICS ??Pressures: ?Site ?Systolic ??Diasto ??Mean ?lic ?AoA ? 109 ? 58 ?86 ?LV ?122 ? 18 ?PBA ? 123 ? 58 ?93 ?PBV ? 123 ? 8 ? 19 There was no gradient detected across the aortic valve. The left ventricular end diastolic pressure was mildly elevated. LEFT VENTRICULOGRAPHY Ventriculography was not performed during the procedure. FEMORAL ANGIOGRAPHIC FINDINGS The right common femoral artery was normal in size and had no significant angiographic lesions. ??The femoral artery sheath was placed within the common femoral artery. CORONARY ANGIOGRAPHIC FINDINGS Left Main Artery: The distal LMCA has a focal 70% stenosis. Left Anterior Descending Artery: The LAD has an aneurysmal ostium, and a focal 40-50% mid-vessel stenosis. ??There is competitive flow in the distal LAD from a patent GOMEZ graft. Circumflex Artery: The proximal Circumflex artery has a long 80% stenosis. ??The distal Circumflex artery is subtotally occluded before the origin of a small distal posterolaterla branch in a co-dominant vessel. Ramus Intermedius Artery: The proximal Ramus artery has a focal 50-60% stenosis. ??The mid ramus demonstrates competitive flow from a patent vein graft. Right Coronary Artery: The RCA was normal in size and had mild luminal irregularities. ??The RCA is co-dominant. Grafts: All anastomoses and grafts are widely patent (GOMEZ to LAD, SVG to RI). Referring Physician: ANGEL JULIAN,JOHANA Referring Physician 2: SILVESTRE JULIAN,ARMAAN Referring Physician 3: SANDRA JULIAN,DAVID Zhu Diagnostic Attending: Rolly Kendall MD Diagnostic Fellow: Aiden Reynoso MD As the attending, supervising print shop stenographer, I was present for the entire procedure. Signature date/time: 02/26/2006 4:40:12 PM Procedure Note 03/26/2010 [facility] [address] [place] [id number] [email or web address] Final Diagnostic Cardiovascular Catheterization Report --- SUMMARY OF RESULTS --- > Diagnostic cardiac catheterization was performed without anysignificant complications. > The patient has significant (>70%) lesions in 3 coronary vessel(s). > There are no graft(s) with 70% or more stenosis. --- PLAN --- > After careful review of the diagnostic images and findings, PCI of the proximal Circumflex and distal left main coronary artery is indicated immediately. --- PATIENT PRESENTATION --- The patient is a 60 year old male with the following indications:arrythmia, NSTEMI . The patient has the following Comorbidities/Risk Factors: FamilyHistory, Hyperlipidemia, Hypertension, Known CAD, Past Smoker, Previous CABG. : 1945 Sex: male Height: 175cm Weight: 94kg BSA:2.09 Allergies: Sulfa Drugs, cipro Pre-Ends Down Checker Values: HCT: 42.3 Platelets: 187.0 Creatinine:.9 --- PROCEDURE --- DIAGNOSTIC CARDIAC PROCEDURE Under local anesthesia, the right femoral artery was accessed with a 6Fsheath using modified Seldinger technique. A 6F JL4 catheter was introducedand positioned in the ascending aorta. Selective coronary arteriography was then performed using a 6F [id number] to engage the left coronary artery and a 6F modified AR catheter to engagethe right coronary artery. Right and left coronary arteriography wereperformed in multiple views. Selective mammary graft angiography was then performed using a IMAcatheter to engage the arterial graft conduit to the LAD. Angiography was performedin multiple views. Selective saphenous vein graft angiography was also performed using 6Fmodified AR catheter to engage the ostium of the vein graft to the Ramus.Angiography was performed in multiple views. The Access location was: > Right Femoral Artery The Largest Arterial Sheath/Cath placed was 7F The Hemostasis method used was: > Angioseal SELECTED MEDICATION ADMINISTERED DURING THE PROCEDURE: BilvalirudinBOLUS, Bilvalirudin DRIP, Clopidogrel, FENTANYL, HEPARIN DRIP, VERSED (Please see PhysioLog report for complete list of medicationsused.) --- RESULTS --- HEMODYNAMICS Pressures: Site Systolic Diasto Mean lic AoA 109 58 86 LV 122 18 PBA 123 58 93 PBV 123 8 19 There was no gradient detected across the aortic valve. The left ventricular end diastolic pressure was mildly elevated. LEFT VENTRICULOGRAPHY Ventriculography was not performed during the procedure. FEMORAL ANGIOGRAPHIC FINDINGS The right common femoral artery was normal in size and had nosignificant angiographic lesions. The femoral artery sheath was placed [facility] femoral artery. CORONARY ANGIOGRAPHIC FINDINGS Left Main Artery: The distal LMCA has a focal 70% stenosis. Left Anterior Descending Artery: The LAD has an aneurysmal ostium, and afocal 40-50% mid-vessel stenosis. There is competitive flow in the distal LADfrom a patent GOMEZ graft. Circumflex Artery: The proximal Circumflex artery has a long 80% stenosis.The distal Circumflex artery is subtotally occluded before the origin of asmall distal posterolaterla branch in a co-dominant vessel. Ramus Intermedius Artery: The proximal Ramus artery has a focal 50-60% stenosis. The mid ramus demonstrates competitive flow from a patentvein graft. Right Coronary Artery: The RCA was normal in size and had mild luminal irregularities. The RCA is co-dominant. Grafts: All anastomoses and grafts are widely patent (GOMEZ to LAD, SVG Daria). Referring Physician: ANGEL JULIAN,JOHANA Referring Physician 2: SILVESTRE JULIAN,ARMAAN Referring Physician 3: SANDRA JULIAN,DAVID Zhu Diagnostic Attending: Rolly Kendall MD Diagnostic Fellow: Aiden Reynoso MD As the attending, supervising print shop stenographer, I was present for the entire procedure. Signature date/time: 02/26/2006 4:40:12 PM IMPRESSION [facility] [address] [place] [address] [phone] [email or web address] Final Interventional Cardiovascular Catheterization Report --- SUMMARY OF RESULTS --- > The patient has significant (>70%) lesions in 2 coronary vessel(s). > The culprit artery was the LMCA and proximal Circumflex. Prior to PCIthere was 90% stenosis in the culprit artery. > Following PCI as described in the procedure section, there was 0%residual stenosis and normal flow in the LMCA and proximal Circumflex. > We accomplished complete revascularization. There are severestenoses remaining in 0 coronary vessels or grafts. > Interventional cardiac catheterization was performed without anysignificant complications. --- PLAN --- > Medical treatment is recommended including dual anti-platelet therapyfor a minimum of 12 months. --- PATIENT PRESENTATION --- The patient is a 60 year old male. The primary indication for PCI wasPost-[place] Anatomy. Additional indications include: arrythmia, NSTEMI. The patient has the following Comorbidities/Risk Factors: FamilyHistory, Hyperlipidemia, Hypertension, Known CAD, Past Smoker, Previous CABG. : 1945 Sex: male Height: 175cm Weight: 94kg BSA:2.09 Allergies: Sulfa Drugs, cipro Pre-Ends Down Checker Values: HCT: 42.3 Platelets: 187.0 Creatinine:.9 --- PROCEDURE --- CARDIAC ANATOMY AND FUNCTION Natives with > 70% stenosis: Circumflex, Mid-Distal Circumflex, Proximal Circumflex LM Stenosis: 70% INTERVENTIONAL CARDIAC PROCEDURE PCI is indicated for this significant ACC/AHA class B2 lesion in the LMCAand proximal Circumflex vessel. A 7F XB3.5 guide catheter was chosen for the intervention . This cathetergave good engagement in the ostium of the LM. The lesion in the proximal Circumflex was crossed successfully with an0.014 inch [employer] Serviceswater wire. This was aided by the [employer] steerablecatheter. We then inflated a 2.5 mm diameter of approximately 12 mm length [employer] [place] balloon in the LMCA and proximal Circumflex. The maximalinflation pressure was 10-12 loren. Multiple pre-dilatations were performed. We then inflated a 3.0 mm diameter of approximately 18 mm length Cypherdrug- eluting stent in the ostial to proximal Circumflex. The maximalinflation pressure was >16 loren. We then inflated a 3.5 mm diameter of approximately 13 mm length Cypherdrug- eluting stent in the LMCA overlapping with the ostial LCx stent. Themaximal inflation pressure was >16 loren. We then postdilated with a 3.5 mm diameter of approximately 12 mm length [employer] [place] balloon in the LMCA in to the ostium of the LCx. The maximal inflation pressure was >16 loren. We then postdilated with a 4.0 mm diameter of approximately 12 mm length [employer] [place] balloon in the LMCA and into the ostium of the LCx.The maximal inflation pressure was >16 loren. The right common femoral artery was normal in size and had nosignificant angiographic lesions. The femoral artery sheath was placed within thecommon femoral artery. The Access location was: > Right Femoral Artery The Largest Arterial Sheath/Cath placed was 7F The Hemostasis method used was: > Angioseal SELECTED MEDICATION ADMINISTERED DURING THE PROCEDURE: BilvalirudinBOLUS, Bilvalirudin DRIP, Clopidogrel, FENTANYL, HEPARIN DRIP, VERSED (Please see PhysioLog report for complete list of medicationsused.) Referring Physician: ANGEL JULIAN,JOHANA Referring Physician 2: SILVESTRE JULIAN,ARMAAN Referring Physician 3: DAVID FLORES MD Interventional Attending: Aguilar Davis MD Interventional Fellow: Richie Buck MD As the attending, supervising print shop stenographer, I was present for the entire procedure. Signature date/time: 03/01/2006 9:42:36 AM us [email or web address] CARDIAC CATH OR DERABLES Final Result * TROPONIN I (02/26/2006 5:16 EDT) Troponin I pre 2011 6.74 ng/ml [facility] Comment: normal: less than 0.15 indeterminate: 0.15-1.50 positive: greater than 1.50 02/26/2006 5:16 EDT 02/26/2006 5:17 EDT us Sav Green MD CHEMISTRY & BLOOD GAS ORDERAB LES Final Result Performing Organization Address [facility] de Phone Number [facility] [address] [place] [address] * (ABNORMAL) PTT (02/26/2006 5:16 EDT) PTT 115(HH) 20 - 35 secs [facility] Comment:Therapeutic Heparin range: 70-105 seconds 02/26/2006 5:16 EDT 02/26/2006 5:17 EDT us Sav Green MD HEMATOLOGY & PF4 ORDERABLES F inal Result Performing Organization Address [facility] Phone Number [facility] [address] [place] [address] * ELECTROLYTES (02/26/2006 5:16 EDT) Sodium 136 136 - 145 mEq/L [facility] Potassium 4.2 3.5 - 5.0 mEq/L [facility] Chloride 105 96 - 110 mEq/L [facility] CO2 26 24 - 32 mEq/L [facility] 02/26/2006 5:16 EDT 02/26/2006 5:17 EDT us Sav Green MD CHEMISTRY & BLOOD GAS ORDERAB LES Final Result Performing Organization Address [facility] de Phone Number [facility] [address] [place] [address] * LIPID PROFILE (INCLUDES CHOLESTEROL, TRIGLYCERIDES, HDL, LDL) (02/26/2006 5:16 EDT) Cholesterol 127 mg/dl [facility] Comment: Desirable:<200 Borderline:200-239 High Risk:>ss=287 Triglycerides 56 35 - 160 mg/dl [facility] HDL 38 mg/dl [facility] Comment: Highly Desirable:>60 Desirable:35-60 High Risk:<35 LDL, Calculated 78 mg/dl [facility] Comment: Desirable:<130 Borderline:130-159 High Risk:>ga=942 Chol/HDL Ratio 3.3 [facility] Fasting? Unknown [facility] 02/26/2006 5:16 EDT 02/26/2006 5:17 EDT us Sav Green MD CHEMISTRY & BLOOD GAS ORDERAB LES Final Result Performing Organization Address [facility] de Phone Number [facility] [address] [place] [address] * CREATININE (02/26/2006 5:16 EDT) Creatinine 0.9 0.7 - 1.5 mg/dl [facility] 02/26/2006 5:16 EDT 02/26/2006 5:17 EDT us Sav Green MD HISTORICAL LAB FOR SQ LOAD Fi nal Result Performing Organization Address [facility] Phone Number [facility] [address] [place] [address] * (ABNORMAL) CK MB WITH TOTAL CK (02/26/2006 5:16 EDT) CK 922(H) 0 - 250 U/L [facility] MB 32.2(H) 0 - 5.0 ng/ml [facility] CK-MB Index 3.5(H) 0 - 2.5 [facility] 02/26/2006 5:16 EDT 02/26/2006 5:17 EDT us Sav Green MD CHEMISTRY & BLOOD GAS ORDERAB LES Final Result Performing Organization Address [facility] de Phone Number [facility] [address] [place] [address] * (ABNORMAL) HEMAGRAM AND DIFFERENTIAL (02/26/2006 5:16 EDT) WBC 10.97(H) 4.0 - 10.4 K/cmm [facility] RBC 4.40 4.36 - 5.78 M/cmm [facility] Hemoglobin 14.6 13.8 - 17.3 gm/dl [facility] HCT 42.3 39.5 - 50.2 % [facility] MCV 96(H) 81 - 95 fl [facility] MCH 33.3(H) 27.6 - 33.0 pg [facility] MCHC 34.6 32.8 - 36.4 gm/dl [facility] PLT 187 141 - 320 K/cmm [facility] RDW-CV 13.0 11.8 - 14.1 % [facility] Neutrophils 85.0(H) 45.5 - 79.7 % [facility] Lymphocytes 9.0(L) 15.0 - 46.8 % [facility] Monocytes 6.0 1.8 - 12.0 % [facility] ABS Neutrophils 9.32(H) 2.20 - 8.85 K/cmm [facility] ABS Lymphs 0.99(L) 1.09 - 3.30 K/cmm [facility] ABS Monocytes 0.66 0.1 - 0.8 K/cmm [facility] RBC Morphology [facility] Type of Diff: Manual [facility] 02/26/2006 5:16 EDT 02/26/2006 5:17 EDT us Sav Green MD PACKAGES & DNA PROBE ORDERABL ES Final Result Performing Organization Address [facility] de Phone Number [facility] [address] [place] [address] * BUN (02/26/2006 5:16 EDT) BUN 15 10 - 26 mg/dl [facility] 02/26/2006 5:16 EDT 02/26/2006 5:17 EDT us Sav rGeen MD CHEMISTRY & BLOOD GAS ORDERAB LES Final Result Performing Organization Address [facility] Co de Phone Number [facility] [address] [place] [address] * CT HEAD WO CONTRAST (02/25/2006 21:58 EDT) Anatomical Region Laterality Modality Other 02/25/2006 21:5 8 EDT Narrative 04/27/2009 12:02 EDT s/p u-tack arrest with ms changes HEAD CT WITHOUT CONTRAST CLINICAL INDICATION: V-tach arrest. TECHNIQUE: ??Multiple contiguous axial sections were taken from skullbase to vertex without the use of contrast. FINDINGS: There are no prior studies for comparison. Examination of the brain demonstrates no intracranial mass, hemorrhage, or extra-axial fluid collection. ??No midline shift or focal mass effect is seen. ??A prominent cisterna magna is noted, a normal variant. ??Calcifications are seen within both vertebral arteries and cavernous segment of the internal carotid artery, consistent with atherosclerotic disease. ??There are probably some calcifications within the basilar artery. ??Mucosal thickening is seen within the ethmoid air cells bilaterally. IMPRESSIONS: 1. ??No CT evidence of acute hemorrhage. 2. ??MR may be helpful for further evaluation if exclusion of acute ischemia is of concern, as this is a more sensitive study for its detection. 3. ??Atherosclerotic calcifications in both the anterior and posterior circulation, as described above. /tns Procedure Note Hernando Mccormick MD - 04/27/2009 s/p u-tack arrest with ms changes HEAD CT WITHOUT CONTRAST CLINICAL INDICATION: V-tach arrest. TECHNIQUE: Multiple contiguous axial sections were taken from skullbase to vertex without the use of contrast. FINDINGS: There are no prior studies for comparison. Examination of the brain demonstrates no intracranial mass, hemorrhage, or extra-axial fluid collection. No midline shift or focal mass effect is seen. A prominent cisterna magna is noted, a normal variant. Calcifications are seen within both vertebral arteries and cavernous segment of the internal carotid artery, consistent with atherosclerotic disease. There are probably some calcifications within the basilar artery. Mucosal thickening is seen within the ethmoid air cells bilaterally. IMPRESSIONS: 1. No CT evidence of acute hemorrhage. 2. MR may be helpful for further evaluation if exclusion of acute ischemia is of concern, as this is a more sensitive study for its detection. 3. Atherosclerotic calcifications in both the anterior and posterior circulation, as described above. /tns us Sav Green MD IMG CT ORDERABLES Final Resul t * CALCIUM, IONIZED (02/25/2006 21:22 EDT) Pathologist [facility] Calcium, Ionized 1.17 1.12 - 1.32 mmol/L [facility] respiratory ID [id number] Test performed by Chemistry [facility] 02/25/2006 21:2 2 EDT 02/25/2006 21:32 EDT us Sav Green MD CHEMISTRY & BLOOD GAS ORDERAB LES Final Result Performing Organization Address [facility] de Phone Number [facility] [address] [place] [address] * (ABNORMAL) GLUCOSE, GLUCOMETER (02/25/2006 21:04 EDT) [facility] Glucose, Fingerstick 120(H) 70 - 110 mg/dl [facility] Field Crew Chief ID [id number] Test Performed by Nursing Services [facility] 02/25/2006 21:0 4 EDT 02/25/2006 22:01 EDT us Sav Green MD CHEMISTRY & BLOOD GAS ORDERAB LES Final Result Performing Organization Address [facility] de Phone Number [facility] [address] [place] [address] * TROPONIN I (02/25/2006 21:00 EDT) [facility] Troponin I pre 2012 2.06 ng/ml [facility] Comment: normal: less than 0.15 indeterminate: 0.15-1.50 positive: greater than 1.50 02/25/2006 21:0 0 EDT 02/25/2006 21:21 EDT us Sav Green MD CHEMISTRY & BLOOD GAS ORDERAB LES Final Result Performing Organization Address [facility] Co de Phone Number [facility] [address] [place] [address] * TOTAL & DIRECT BILIRUBIN (02/25/2006 21:00 EDT) Conjugated Bilirubin 0.0 0.0 - 0.3 mg/dl [facility] Unconjugated Bilirubin 0.9 0.1 - 1.1 mg/dl [facility] Bilirubin, Total 0.8 0.2 - 1.3 mg/dl [facility] 02/25/2006 21:0 0 EDT 02/25/2006 21:21 EDT us Sav Green MD CHEMISTRY & BLOOD GAS ORDERAB LES Final Result Performing Organization Address [facility] Co de Phone Number [facility] [address] [place] [address] * (ABNORMAL) GLUCOSE, SERUM (02/25/2006 21:00 EDT) Glucose, Serum 114(H) 70 - 100 mg/dl [facility] 02/25/2006 21:0 0 EDT 02/25/2006 21:21 EDT us Sav Green MD CHEMISTRY & BLOOD GAS ORDERAB LES Final Result Performing Organization Address [facility] de Phone Number [facility] [address] [place] [address] * PTT (02/25/2006 21:00 EDT) PTT 26 20 - 35 secs [facility] Comment:Therapeutic Heparin range: 70-105 seconds 02/25/2006 21:0 0 EDT 02/25/2006 21:21 EDT us Sav Green MD HEMATOLOGY & PF4 ORDERABLES F inal Result Performing Organization Address [facility] Co de Phone Number [facility] [address] [place] [address] * PROTIME (02/25/2006 21:00 EDT) Pro Time 14.5 12.0 - 15.0 secs [facility] I.N.R. 1.1 0.9 - 1.1 Ratio [facility] Comment: Moderate Intensity Coumadin INR = 2.0-3.0 Adjustments in anticoagulant therapy dose should be based upon the INR and NOT the Pro Time. 02/25/2006 21:0 0 EDT 02/25/2006 21:21 EDT us Sav Green MD HEMATOLOGY & PF4 ORDERABLES F inal Result Performing Organization Address [facility] de Phone Number [facility] [address] [place] [address] * PHOSPHORUS (02/25/2006 21:00 EDT) Pathologist [facility] Phosphorus 2.7 2.5 - 4.5 mg/dl [facility] 02/25/2006 21:0 0 EDT 02/25/2006 21:21 EDT us Sav Green MD CHEMISTRY & BLOOD GAS ORDERAB LES Final Result Performing Organization Address [facility] de Phone Number [facility] [address] [place] [address] * MAGNESIUM (02/25/2006 21:00 EDT) Pathologist [facility] Magnesium 2.1 1.7 - 2.8 mg/dl [facility] 02/25/2006 21:0 0 EDT 02/25/2006 21:21 EDT us Sav Green MD CHEMISTRY & BLOOD GAS ORDERAB LES Final Result Performing Organization Address [facility] de Phone Number [facility] [address] [place] [address] * ELECTROLYTES (02/25/2006 21:00 EDT) Sodium 138 136 - 145 mEq/L [facility] Potassium 4.3 3.5 - 5.0 mEq/L [facility] Chloride 103 96 - 110 mEq/L [facility] CO2 29 24 - 32 mEq/L [facility] 02/25/2006 21:0 0 EDT 02/25/2006 21:21 EDT us Sav Green MD CHEMISTRY & BLOOD GAS ORDERAB LES Final Result Performing Organization Address [facility] Phone Number [facility] [address] [place] [address] * CALCIUM IONIZED (02/25/2006 21:00 EDT) Ionized Calcium Note Sample sent to Lab. [facility] 02/25/2006 21:0 0 EDT 02/25/2006 21:21 EDT us Sav Green MD CHEMISTRY & BLOOD GAS ORDERAB LES Final Result Performing Organization Address [facility] Phone Number [facility] [address] [place] [address] * CREATININE (02/25/2006 21:00 EDT) Creatinine 1.0 0.7 - 1.5 mg/dl [facility] 02/25/2006 21:0 0 EDT 02/25/2006 21:21 EDT us Sav Green MD HISTORICAL LAB FOR SQ LOAD Fi nal Result Performing Organization Address [facility] Phone Number [facility] [address] [place] [address] * (ABNORMAL) CK MB WITH TOTAL CK (02/25/2006 21:00 EDT) CK 429(H) 0 - 250 U/L [facility] MB 20.0(H) 0 - 5.0 ng/ml [facility] CK-MB Index 4.7(H) 0 - 2.5 [facility] 02/25/2006 21:0 0 EDT 02/25/2006 21:21 EDT us Sav Green MD CHEMISTRY & BLOOD GAS ORDERAB LES Final Result Performing Organization Address [facility]/ZIP Co de Phone Number [facility] [address] [place] [address] * (ABNORMAL) HEMAGRAM AND DIFFERENTIAL (02/25/2006 21:00 EDT) Pathologist [facility] WBC 14.51(H) 4.0 - 10.4 K/cmm [facility] RBC 4.28(L) 4.36 - 5.78 M/cmm [facility] Hemoglobin 14.5 13.8 - 17.3 gm/dl [facility] HCT 41.0 39.5 - 50.2 % [facility] MCV 96(H) 81 - 95 fl [facility] MCH 33.8(H) 27.6 - 33.0 pg [facility] MCHC 35.4 32.8 - 36.4 gm/dl [facility] PLT 168 141 - 320 K/cmm [facility] RDW-CV 12.8 11.8 - 14.1 % [facility] Neutrophils 90.0(H) 45.5 - 79.7 % [facility] % Bands 3.0 % [facility] Lymphocytes 2.0(L) 15.0 - 46.8 % [facility] Monocytes 5.0 1.8 - 12.0 % [facility] ABS Neutrophils 13.05(H) 2.20 - 8.85 K/cmm [facility] ABS Bands 0.44 K/cmm [facility] ABS Lymphs 0.29(L) 1.09 - 3.30 K/cmm [facility] ABS Monocytes 0.73 0.1 - 0.8 K/cmm [facility] RBC Morphology [facility] Type of Diff: Manual [facility] 02/25/2006 21:0 0 EDT 02/25/2006 21:21 EDT us Sav Green MD PACKAGES & DNA PROBE ORDERABL ES Final Result [facility] [address] [place] [address] * BUN (02/25/2006 21:00 EDT) BUN 18 10 - 26 mg/dl [facility] 02/25/2006 21:0 0 EDT 02/25/2006 21:21 EDT us Sav Green MD CHEMISTRY & BLOOD GAS ORDERAB LES Final Result Performing Organization Address [facility] Co de Phone Number [facility] [address] [place] [address] * (ABNORMAL) AST (02/25/2006 21:00 EDT) AST 168(H) 15 - 46 U/L [facility] 02/25/2006 21:0 0 EDT 02/25/2006 21:21 EDT us Sav Green MD CHEMISTRY & BLOOD GAS ORDERAB LES Final Result Performing Organization Address [facility] de Phone Number [facility] [address] [place] [address] * (ABNORMAL) ALT (02/25/2006 21:00 EDT) ALT 229(H) 21 - 72 U/L [facility] 02/25/2006 21:0 0 EDT 02/25/2006 21:21 EDT us Sav Green MD CHEMISTRY & BLOOD GAS ORDERAB LES Final Result Performing Organization Address [facility] Co de Phone Number [facility] [address] [place] [address] * ALKALINE PHOSPHATASE (02/25/2006 21:00 EDT) Total Alkaline Phosphatase 78 38 - 126 U/L [facility] 02/25/2006 21:0 0 EDT 02/25/2006 21:21 EDT us Sav Green MD CHEMISTRY & BLOOD GAS ORDERAB LES Final Result Performing Organization Address [facility] Co de Phone Number [facility] [address] [place] [address] * ALBUMIN (02/25/2006 21:00 EDT) Albumin 3.9 3.4 - 4.9 g/dl [facility] 02/25/2006 21:0 0 EDT 02/25/2006 21:21 EDT us Sav Green MD CHEMISTRY & BLOOD GAS ORDERAB LES Final Result [facility] [address] [place] [address] documented in this encounter Visit Diagnoses Not on filedocumented in this encounter
--- OUTSIDE RECORDS SUMMARY | 2024-10-27 00:14 | XMS_ITS | Encounter Summary ---
Author Organization [facility] Address [facility] [place] [address] Care Team Providers Care Network Communications Engineer Name Role Phone Lulú Toribio MD Primary Care Provider [phone] Reason for Visit * Reason Comments Follow-up with stress test Encounter Details Date Type Department Care Team (Late st Contact Info) Description 11/12/2011 2:00 PM EST Follow-Up Cardiology at [address] [id number] Mejia Luna MD [facility] [place] [address] CAD (coronary artery disease) (Primary Dx) Discharge Disposition: Home Social History Tobacco Use Types Packs/Day Years Used Date Smoking Tobacco: Never Sex and Gender Information Value Date Recorded Sex Assigned at Not on file Gender Identity Not on file Sexual Orientation Not on file documented as of this encounter Last Filed Vital Signs Vital Sign Reading Time Taken Comments Blood Pressure 130/66 11/12/2011 2:19 PM EST Pulse 71 11/12/2011 2:19 PM EST Temperature - - Respiratory Rate - - Oxygen Saturation 97% 11/12/2011 2:19 PM EST Inhaled Oxygen Concentration - - Weight 94.3 kg (208 lb) 11/12/2011 2:19 PM EST Height 180.3 cm (5' 11) 11/12/2011 2:19 PM EST Body Mass Index 29.01 11/12/2011 2:19 PM EST documented in this encounter Progress Notes * Mejia Luna - 11/12/2011 2:29 PM EST Subjective: Patient ID: Daren Olguin is a 65 y.o. male. HPI PCP: Lulú Toribio MD Reason for Visit: Follow-up office visit Dear Lulú: Daren comes in today for follow-up of bypass surgery and left main stenting. He is doing great. Issues include the followin. 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 He and his are very happy. They enjoy mcc very much. He does not smoke. He drinks minimally. 2. Family History: Strong family history for coronary disease. 3. Hypertension: Generally under control. 130/66 4. Diabetes: Blood sugars have been improved. GLUCOSE 159,HGBA1C 6.6. 5. Weight loss: He is gradually doing better. He has gone from 231 down to 208. His goal is to get less than [...] has had no angina. A stress echo 1 yearago showed no ischemia to stage 4 of the Navneet protocol and heart rate of 130, 84% of predicted. This is perfect. HE HAS HAD NO ANGINA. 8. History of V-fib arrest: No recurrent episodes. No inducible arrhythmias. 9. LIPID HISTORY: MOST RECENTLY 147/38/79 TRIGS 247 Review of Systems Constitutional: Negative. HENT: Negative. Eyes: Negative. Cardiovascular: Negative. Respiratory: Negative. Endocrine: Negative. Skin: Negative. Musculoskeletal: Negative. Gastrointestinal: Negative. Genitourinary: Negative. Neurological: Negative. Psychiatric/Behavioral: Negative. Objective: Physical Exam Constitutional: He is oriented to person, place, and time. He appears well- developed and well-nourished. Eyes: Conjunctivae are normal. Pupils are equal, round, and reactive to light. Neck: Normal range of motion. Neck supple. Cardiovascular: S1 normal and S2 normal. bp 130/66 Pulse 70 Weight 208 Pulmonary/Chest: Effort normal and breath sounds normal. Abdominal: Soft. Bowel sounds are normal. Musculoskeletal: Normal range of motion. He exhibits no edema. Neurological: He is alert and oriented to person, place, and time. He has normal reflexes. Assessment and Plan: ASSESSMENT: DOING GREAT. PLAN: NO CHANGE IN THERAPY, REFOCUS ON A LITTLE MORE WEIGHT LOSS. I WILL FOLLOW UP [facility] WITH REPEAT STRESS ECHO. documented in this encounter Plan of Treatment Not on file documented as of this encounter Results * Echocardiogram Stress (Treadmill) (11/16/2012 11:12 AM EST) EF 60 HEARTLAB SYSTEM Anatomical Region Laterality Modality Other 11/16/2012 Narrative 11/16/2012 11:57 AM EST Amended Report Procedure: ? Stress Echocardiogram Patient: ? JULIANE No ? (Age): 1945(66) Med Rec#: ?[id number] ? Sex: ?M ? [place] [place] Ht / Wt: ??175(cm)/99(kg) Pt. Loc: ? Echo Lab ? BSA: ?2.19 Study Date: ?11/16/2012 ? Pt. Type: Outpatient Tape: ?GE3 ? Referring: Mejia Luna ([id number]) Business Unit Leader: Matthew Ernst Quality Control Supervisor: Nani Mccray Diagnosis: ??Coronary atherosclerosis of [place]imi[place] coronary artery (414.01) CPT Code(s): ??Stress Echo (51708), ??Color Doppler (35683), ??Doppler LTD (95196), ??ECG Interpretation (37422), ??Optison (40151HW), Indication(s): ??CAD, H/O Medication(s): ?? Rhythm: Sinus Stage ?HR ?BP Rest ? 59 ?118/58 ?? Peak ? 136 ? 156/72 ?? Recovery ? 64 ?120/70 ?? SUMMARY: 1. Technically difficult study, even with use of contrast. 2. BASELINE: Normal global and segmental biventricular systolic function with an estimated left ventricular ejection fraction of 60%. ??See remainder of report for additional findings. 3. STRESS: Patient followed a Navneet protocol. ??The total exercise duration was:10:16. ??The patient achieved a level of 12 METS. ??Maximum heart rate achieved was 136, which is 89% of the maximum(152 beats/min). Exercise capacity was excellent. ??The patient did not express feelings of chest discomfort. ??There is 1.0 mm of down-sloping ST segment depression in the inferolateral leads. 4. ECHOCARDIOGRAPHIC FINDINGS: There is mild global increase in LV systolic function. ??Two LV wall segments (basal inferior and basal inferoseptal) appeared to deteriorate with stress as depicted in the wall motion diagram below. ?? 5. IMPRESSION: There is echocardiographic evidence for an area of basal inferoseptal ischemia at peak stress. FINDINGS: Rest Left Ventricle ?Left ventricular chamber size, wall thickness, global and segmental systolic function are within normal limits. Ejection fraction is estimated to be 60%. ?Left sided filling pressure could not be assessed by Doppler. Left Atrium ?The left atrium is probably normal in size. Right Ventricle ?The right ventricle is normal in size. ?Right ventricular global systolic function is probably normal. ?No pulmonary hypertension is noted. ?The estimated pulmonary artery systolic pressure is 27 mmHg. ?The estimated right atrial pressure is 3 mmHg. Right Atrium ?The right atrium is probably normal in size. Aortic Valve ?The aortic valve is not well visualized. ?The aortic valve is probably tricuspid. ?All leaflets of the aortic valve are thickened. ?There is no evidence of aortic valve stenosis. ?There is no evidence of aortic regurgitation. Mitral Valve ?The mitral valve appears normal in structure and function. ?There is trace mitral regurgitation present. Tricuspid Valve ?The tricuspid valve appears normal in structure and function. ?There is mild (1+/4+) tricuspid regurgitation present. Pericardium ?The pericardium appears normal and there is no evidence of a pericardial effusion. Aorta ?The ascending aorta is normal in size. Stress ?EKG: Q waves. ?EKG: sinus bradycardia. ?The patient's oxygen saturation was 99% ?The patient is taking a beta berna. ?The patient is taking a lipid lowering agent. ?The patient is taking aspirin. ?The patient is taking an anti-platelet medication. Misc ?Other echo and stress findings as noted in report. ?Technically difficult study. ?Optison contrast (one 3 ml vial) was used to enhance endocardial definition. Excess contrast was discarded. ?Stress echo, limited spectral Doppler, color Doppler and ECG interpretation performed. FINDINGS: Peak Left Ventricle ?There is normal global left ventricular systolic function. ?The basal inferior and basal inferoseptal wall segments deteriorated. Stress ?Patient followed a Navneet protocol. ?The patient exercised into stage 4. ?The total exercise duration was:10:16 ?The study was terminated because of fatigue. ?Maximum heart rate achieved was 136, which is 89% of the maximum(152 beats/min). ?The target heart rate was achieved. ?The patient did not express feelings of chest discomfort. ?The blood pressure response was normal. ?The patient achieved a level of 12 METS. ?There were frequent supraventricular beats. ?There is 1.0 mm of down-sloping ST segment depression in the leads. ?There was ST segment depression in the inferolateral leads. ?This was a positive electrocardiographic stress test. ?This was a positive echocardiographic stress test. ?The patient's oxygen saturation was 96% Wall Motion: Segment Name ?Rest ?Peak ? Base-Anteroseptal ?? Normal ?Normal ? Base-Anterior ? Normal ?Normal ? Base-Anterolateral ??Normal ?Normal ? Base-Posterolateral Normal ?Normal ? Base-Inferior ? Normal ?Hypokinetic ? Base-Inferoseptal ?? Normal ?Hypokinetic ? Mid-Anteroseptal ?Normal ?Normal ? Mid-Anterior ?Normal ?Normal ? Mid-Anterolateral ?? Normal ?Normal ? Mid-Posterolateral ??Normal ?Normal ? Mid-Inferior ?Normal ?Normal ? Mid-Inferoseptal ?Normal ?Normal ? [place]-Septal ? Normal ?Normal ? [place]-Anterior ? Normal ?Normal ? [place]-Lateral ?Normal ?Normal ? [place]-Inferior ? Normal ?Normal ? [place]-Tip ?Normal ?Normal ? Chambers ?Value ?Units (Range) ? LV EF Est ? 60 ? % (55 to 80) ? Asc Ao ?3.1 ?cm (2 to 3.5) ? Mitral Valve ?Value ?Units (Range) ? E peak ?0.66 ? m/sec ? E1 ?0.06 ? m/sec ? E/E1 ?11 ? ratio ? Tricuspid/Pulmonic Valves ?Value ?Units (Range) ? TR peak stevie ? 2.5 ?m/sec ? RAP ? 3 ?mmHg ? RVSP/PASP ? 27 ? mmHg ? This report has been electronically signed by: Senthil Rodriguez. ? 11/16/2012 11:57:22 Images reviewed and interpretation verified [facility] Cardiac Ultrasound Laboratory Procedure Note Senthil Rodriguez MD - 11/16/2012 Amended Report Procedure: Stress Echocardiogram Patient: JULIANE HARDY(Age): 1945(66) Med Rec#: [id number] Sex: M [place] [facility] [place] Ht / Wt: 175(cm)/99(kg) Pt. Loc: Echo Lab BSA: 2.19 Study Date: 11/16/2012 Pt. Type: Outpatient Tape: GE3 Referring: Carlos EnriqueanilMejia (139) Business Unit Leader: Matthew Ernst Quality Control Supervisor: Nani Mccray Diagnosis: Coronary atherosclerosis of [place] coronary artery (414.01) CPT Code(s): Stress Echo (88038), Color Doppler (97317), Doppler LTD (29382), ECG Interpretation (40965), Optison ([id number]), Indication(s): CAD, H/O Medication(s): Rhythm: Sinus Stage HR BP Rest 59 118/58 Peak 136 156/72 Recovery 64 120/70 SUMMARY: 1. Technically difficult study, even with use of contrast. 2. BASELINE: Normal global and segmental biventricular systolic function with an estimated left ventricular ejection fraction of 60%. See remainder of report for additional findings. 3. STRESS: Patient followed a Navneet protocol. The total exercise duration was:10:16. The patient achieved a level of 12 METS. Maximum heart rate achieved was 136, which is 89% of the maximum(152 beats/min). Exercise capacity was excellent. The patient did not express feelings of chest discomfort. There is 1.0 mm of down-sloping ST segment depression in the inferolateral leads. 4. ECHOCARDIOGRAPHIC FINDINGS: There is mild global increase in LV systolic function. Two LV wall segments (basal inferior and basal inferoseptal) appeared to deteriorate with stress as depicted in the wall motion diagram below. 5. IMPRESSION: There is echocardiographic evidence for an area of basal inferoseptal ischemia at peak stress. FINDINGS: Rest Left Ventricle Left ventricular chamber size, wall thickness, global and segmental systolic function are within normal limits. Ejection fraction is estimated to be 60%. Left sided filling pressure could not be assessed by Doppler. Left Atrium The left atrium is probably normal in size. Right Ventricle The right ventricle is normal in size. Right ventricular global systolic function is probably normal. No pulmonary hypertension is noted. The estimated pulmonary artery systolic pressure is 27 mmHg. The estimated right atrial pressure is 3 mmHg. Right Atrium The right atrium is probably normal in size. Aortic Valve The aortic valve is not well visualized. The aortic valve is probably tricuspid. All leaflets of the aortic valve are thickened. There is no evidence of aortic valve stenosis. There is no evidence of aortic regurgitation. Mitral Valve The mitral valve appears normal in structure and function. There is trace mitral regurgitation present. Tricuspid Valve The tricuspid valve appears normal in structure and function. There is mild (1+/4+) tricuspid regurgitation present. Pericardium The pericardium appears normal and there is no evidence of a pericardial effusion. Aorta The ascending aorta is normal in size. Stress EKG: Q waves. EKG: sinus bradycardia. The patient's oxygen saturation was 99% The patient is taking a beta berna. The patient is taking a lipid lowering agent. The patient is taking aspirin. The patient is taking an anti-platelet medication. [facility] Other echo and stress findings as noted in report. Technically difficult study. Optison contrast (one 3 ml vial) was used to enhance endocardial definition. Excess contrast was discarded. Stress echo, limited spectral Doppler, color Doppler and ECG interpretation performed. FINDINGS: Peak Left Ventricle There is normal global left ventricular systolic function. The basal inferior and basal inferoseptal wall segments deteriorated. Stress Patient followed a Navneet protocol. The patient exercised into stage 4. The total exercise duration was:10:16 The study was terminated because of fatigue. Maximum heart rate achieved was 136, which is 89% of the maximum(152 beats/min). The target heart rate was achieved. The patient did not express feelings of chest discomfort. The blood pressure response was normal. The patient achieved a level of 12 METS. There were frequent supraventricular beats. There is 1.0 mm of down-sloping ST segment depression in the leads. There was ST segment depression in the inferolateral leads. This was a positive electrocardiographic stress test. This was a positive echocardiographic stress test. The patient's oxygen saturation was 96% Wall Motion: Segment Name Rest Peak Base-Anteroseptal Normal Normal Base-Anterior Normal Normal Base-Anterolateral Normal Normal Base-Posterolateral Normal Normal Base-Inferior Normal Hypokinetic Base-Inferoseptal Normal Hypokinetic Mid-Anteroseptal Normal Normal Mid-Anterior Normal Normal Mid-Anterolateral Normal Normal Mid-Posterolateral Normal Normal Mid-Inferior Normal Normal Mid-Inferoseptal Normal Normal [place]-Septal Normal Normal [place]-Anterior Normal Normal [place]-Lateral Normal Normal [place]-Inferior Normal Normal [place]-Tip Normal Normal Chambers Value Units (Range) LV EF Est 60 % (55 to 80) Asc Ao 3.1 cm (2 to 3.5) Mitral Valve Value Units (Range) E peak 0.66 m/sec E1 0.06 m/sec E/E1 11 ratio Tricuspid/Pulmonic Valves Value Units (Range) TR peak stevie 2.5 m/sec RAP 3 mmHg RVSP/PASP 27 mmHg This report has been electronically signed by: Senthil Rodriguez 11/16/2012 11:57:22 Images reviewed and interpretation verified [facility] Cardiac Ultrasound Laboratory Mejia Luna MD ECHO ORDERABLES documented in this encounter Visit Diagnoses Diagnosis CAD (coronary artery disease)- Primary Coronary atherosclerosis of unspecified type of vessel, paimi[place] or graft CAD (coronary artery disease) Coronary atherosclerosis of unspecified type of vessel, paimi[place] or graft documented in this encounter Care Teams Network Communications Engineer Relationship Specialty Start Date End Date Lulú Toribio MD [address] [facility] [address] [place] [address] PCP - General 09/02/10 documented as of this encounter
--- OUTSIDE RECORDS SUMMARY | 2024-10-27 00:14 | XMS_ITS | Encounter Summary ---
Author Organization [facility] [place] [address] Care Team Providers Care Furniture Reproducer Name Role Phone Lulú Toribio MD Primary Care Provider [phone] Encounter Details Date Type Department Care Team (Late st Contact Info) Description 12/22/2010 10:40 AM EDT Follow-Up Cardiology at [address] [phone] Mejia Luna MD [facility] [place] [address] Discharge Disposition: Home Social History Tobacco Use [...] on filedocumented in this encounter Care Teams Furniture Reproducer Relationship Specialty Start Date End Date Lulú Toribio MD [address] [place] [address] PCP - General 09/02/10 documented as of this encounter
--- OUTSIDE RECORDS SUMMARY | 2024-10-27 00:14 | XMS_ITS | Encounter Summary ---
Author Organization [facility] Address [address] [place] [address] Care Team Providers Care Insurance Biller Name Role Phone Remedios Troncoso MD Primary Care Provide r Unavailable Encounter Details Date Type Department Care Team (Latest Contact Info) Description 06/08/2017 9:42 EDT - 06/08/2017 23:59 EDT Hospital Encounter [address] [address] Remedios Troncoso MD Discharge Disposition: Home or Self Care Social History Tobacco Use Types Packs/Day Years Used Date Smoking Tobacco: Never Assessed Sex and Gender Information Value Date Recorded Sex Assigned at Not on file Legal Sex Male 18:37 EST Gender Identity Not on file Sexual Orientation Not on file documented as of this encounter Discharge Disposition Disposition Code Departure Means Destination Home or Self [facility] documented in this encounter Plan of Treatment Not on file documented as of this encounter Visit Diagnoses Not on filedocumented in this encounter Care Teams Insurance Biller Relationship Specialty Start Date End Date Remedios Troncoso MD PCP - General 07/04/10 documented as of this encounter
--- OUTSIDE RECORDS SUMMARY | 2024-10-27 00:14 | XMS_ITS | Encounter Summary ---
[place] [address] Care Team Providers Care Tick Eradicator Name Role Phone Lulú Toribio MD Primary Care Provider [phone] Encounter Details Date Type Department Care Team (Latest Contact Info) Description 11/16/2012 9:52 AM EST - 11/16/2012 11:59 PM [facility] Hospital Encounter [place] [phone] CAD (coronary artery disease) Social History Tobacco Use Types Packs/Day Years Used Date Smoking Tobacco: Never Sex and Gender Information Value Date Recorded Sex Assigned at Not on file Gender Identity Not on file Sexual Orientation Not on file documented as of this encounter Medications at Time of Discharge Medication Sig Dispensed Refills Start Date End Date lisinopril (PRINIVIL;ZESTRIL) 10 mg tablet Take 10 [...] = 1 Tablet(s), PO, Once daily 12/22/2010 metFORMIN (GLUCOPHAGE) 1,000 mg tablet Take 1,000 mg by mouth 2 times daily (with meals). 11/28/2014 sildenafil (VIAGRA) 50 mg tablet 12/22/2010 11/28/2014 documented as of this encounter Plan of Treatment Not on file documented as of this encounter Procedures Procedure Name Priority Date/Time Associated Diagnosis Comments ECHOCARDIOGRAM STRESS TEST (TREADMILL) Routine 11/16/2012 11:12 AM EST CAD (coronary artery disease) documented in this encounter Results * Echocardiogram Stress (Treadmill) (11/16/2012 11:12 AM EST) EF 60 HEARTQualQuant Signals SYSTEM Anatomical Region Laterality Modality Other 11/16/2012 Narrative 11/16/2012 11:57 AM EST Amended Report Procedure: ? Stress Echocardiogram Patient: ? JULIANE No ? (Age): 1945(66) Med Rec#: ?[id number] ? Sex: ?M ? [place] [place] Ht / Wt: ??175(cm)/99(kg) Pt. Loc: ? Echo Lab ? BSA: ?2.19 Study Date: ?11/16/2012 ? Pt. Type: Outpatient Tape: ?GE3 ? Referring: Mejia Luna ([id number]) Maintenance Journeyman: Matthew Ernst Patient Care Nursing Assistant: Nani Mccray Diagnosis: ??Coronary atherosclerosis of [place] coronary artery (414.01) CPT Code(s): ??Stress Echo (37684), ??Color Doppler (29228), ??Doppler LTD (47190), ??ECG Interpretation (21649), ??Optison (64466LC), Indication(s): ??CAD, H/O Medication(s): ?? Rhythm: Sinus [...] ?Normal ?Normal ? Mid-Inferoseptal ?Normal ?Normal ? [place]-Septal ? Normal ?Normal ? [place]-Anterior ? Normal ?Normal ? [place]-Lateral ?Normal ?Normal ? [place]-Inferior ? Normal ?Normal ? [place]-Tip ?Normal ?Normal ? Chambers ?Value ?Units (Range) [...] 11/16/2012 11:57:22 Images reviewed and interpretation verified [facility] Cardiac Ultrasound Laboratory Procedure Note Senthil Rodriguez MD - 11/16/2012 Amended Report Procedure: Stress Echocardiogram Patient: JULIANE No (Age): 1945(66) Med Rec#: [id number] Sex: M [place] [facility] [place]t / Wt: 175(cm)/99(kg) Pt. Loc: Echo Lab BSA: 2.19 Study Date: 11/16/2012 Pt. Type: Outpatient Tape: GE3 Referring: Mejia Luna ([id number]) Maintenance Journeyman: Matthew Ernst Patient Care Nursing Assistant: Nani Mccray Diagnosis: Coronary atherosclerosis of [place] coronary artery (414.01) CPT Code(s): Stress Echo (14531), Color Doppler (53693), Doppler LTD (89762), ECG Interpretation (31797), Optison (59454LC), Indication(s): CAD, H/O Medication(s): Rhythm: Sinus Stage [...] The patient is taking an anti-platelet medication. Misc Other echo and stress findings as noted [...] Normal Mid-Inferior Normal Normal Mid-Inferoseptal Normal Normal [place]-Septal Normal Normal [place]-Anterior Normal Normal [place]-Lateral Normal Normal [place]-Inferior Normal Normal [place]-Tip Normal Normal Chambers Value Units (Range) LV [...] 11/16/2012 11:57:22 Images reviewed and interpretation verified [facility] Cardiac Ultrasound Laboratory Mejia Luna MD ECHO ORDERABLES documented in this encounter Visit Diagnoses Diagnosis CAD (coronary artery disease) Coronary atherosclerosis of unspecified type of vessel, [place] or graft documented in this encounter Administered Medications Inactive Administered Medications - up to 3 most recent administrations Medication Order MAR Action Action Date Dose Rate Site perflutren protein-A microspheres (OPTISON) 0.22 mg/mL injection 3 mL 3 mL, Intravenous, ONCE PRN, 1 dose, Starting on Wed11/16/12 at 1113, Until Wed11/16/12 at 1030, Per Protocol, for enhancement of sub-optimal echo images, Echo Lab (Intra-Procedure), Routine Given 11/16/2012 10:30 AM EST 3 mLs documented in this encounter Care Teams Tick Eradicator Relationship Specialty Start Date End Date Lulú Toribio MD [address] [place] [address] [address] [facility] 1 [place] [address] PCP - General 09/02/10 documented as of this encounter
--- OUTSIDE RECORDS SUMMARY | 2024-10-27 00:14 | XMS_ITS | Encounter Summary ---
Author Organization [facility] [place] [address] Care Team Providers Care Button Tufter Name Role Phone Lulú Toribio MD Primary Care Provider [phone] Reason for Visit * Reason Onset Date Comments Other 10/23/2013 PT DECLINED CARD IOLOGY F/UP Encounter Details Date Type Department Care Team (Late st Contact Info) Description 10/23/2013 Telephone Cardiology at [address] [phone] Edmar Albright Other (PT DECLINED CARDIOLOGY F/UP) Social History Tobacco Use Types Packs/Day Years Used Date Smoking Tobacco: Never Sex and Gender Information Value Date Recorded Sex Assigned at Not on file Gender Identity Not on file Sexual Orientation Not on file documented as of this encounter Miscellaneous Notes * Telephone Encounter - Edmar Albright - 10/23/2013 11:09 AM EST Called patient to schedule his yearly cardiology follow-up appointment. Patient declined since his Metrology Engineer has retired. He decided to transfer his cardiac care to another hospital. documented in this encounter Plan of Treatment Not on file documented as of this encounter Visit Diagnoses Not on filedocumented in this encounter Care Teams Button Tufter Relationship Specialty Start Date End Date Lulú Toribio MD [address] [place], [place] [id number] PCP - General 09/02/10 documented as of this encounter
--- OUTSIDE RECORDS SUMMARY | 2024-10-27 00:14 | XMS_ITS | Encounter Summary ---
[place] [address] Care Team Providers Care Outpatient Physical Therapist Name Role Phone Lulú Toribio MD Primary Care Provider [phone] Encounter Details Date Type Department Care Team (Latest Contact Info) Description 11/12/2011 12:55 PM EST - 11/12/2011 11:59 PM EST Hospital Encounter Non-In[place] [phone] CAD (coronary artery disease) Social History Tobacco [...] Diagnosis Comments ECHOCARDIOGRAM STRESS TEST (TREADMILL) Routine 11/12/2011 2:12 PM EST CAD (coronary artery disease) documented in this encounter Results * Echocardiogram Stress (Treadmill) (11/12/2011 2:12 PM EST) EF 65 HEARTLAB SYSTEM Anatomical Region Laterality Modality Other 11/12/2011 Narrative 11/12/2011 2:36 PM EST Procedure: ? Stress Echocardiogram Patient: ? JULIANE No ? (Age): 1945(65) Med Rec#: ?[id number] ? Sex: ?M ? [place] [place] Ht / Wt: ??178(cm)/94(kg) Pt. Loc: ? Echo Lab ? BSA: ?2.16 Study Date: ?11/12/2011 ? Pt. Type: Outpatient Tape: ? Referring: Mejia Luna ([id number]) Metal Drill Press Operator: Jey Zhu Utility Sales And Service Manager: Ramy Villa Diagnosis: ??Coronary atherosclerosis of unspecified vessel (414.00) CPT Code(s): ??Color Doppler (27404), ??Stress Echo (20816), ??Doppler LTD (28241), ??ECG Interpretation (14279), ??Definity (23886JT), Indication(s): ??CAD, H/O Medication(s): ?? Rhythm: Stage ?HR ?BP Rest ? 60 ?160/70 ?? Peak ? 141 ? 190/70 ?? Recovery ? 82 ?130/70 ?? SUMMARY: 1. Exercise echo is negative for ischemia at this level of stress. 2. Patient followed a Navneet protocol. The patient exercised into stage 4. The total exercise duration was:11:03 minutes (13 METS). ??The study was terminated because of fatigue. Maximum heart rate achieved was 141 bpm, which is 92% of the maximum (153 beats/min). The target heart rate was achieved. The patient did not express feelings of chest discomfort. 3. Echo: There is normal global left ventricular systolic function. Ejection fraction is estimated to be 65%. ??There are no left ventricular segmental wall motion abnormalities. ??During the immediate post exercise period, there is vigorous recruitment of all hagan. ?? 4. ECG: NSR. ??Non-specific T wave inversions. ??No ST changes. 5. Other details as below. FINDINGS: Rest Study Quality ?Technically limited Left Ventricle ?The left ventricular chamber size is normal. ?Left ventricular wall thickness is normal. ?There is normal global left ventricular systolic function. ??Ejection fraction is estimated to be 65%. ?There are no left ventricular segmental wall motion abnormalities. Left Atrium ?The left atrium is mildly dilated. Right Ventricle ?The right ventricle is probably normal in size. ?Right ventricular global systolic function is poorly visualized. ?The estimated pulmonary artery systolic pressure is 26 mmHg. ?The estimated right atrial pressure is 3 mmHg. Right Atrium ?The right atrium is mildly dilated. Aortic Valve ?The aortic valve is not well visualized. ?There is no evidence of aortic valve stenosis. ?There is no evidence of aortic regurgitation. Mitral Valve ?The mitral valve is probably normal. ?There is no evidence of mitral regurgitation. Tricuspid Valve ?The tricuspid valve is probably normal. ?There is mild (1+/4+) tricuspid regurgitation present. Pericardium ?There is no pericardial effusion. Aorta ?The aorta appears normal. ?The aortic root is normal in size. Stress ?EKG: normal sinus rhythm. ?The patient is taking a beta berna. ?The patient is taking a lipid lowering agent. Misc ?Definity contrast (one 1.5 ml vial)was used to enhance endocardial definition. Excess contrast was discarded. ?Stress echo, limited spectral Doppler, color Doppler and ECG interpretation performed. FINDINGS: Peak Left Ventricle ?The basal inferior and basal inferoseptal wall segments deteriorated. Stress ?Patient followed a Navneet protocol. ?The patient exercised into stage 4. ?The total exercise duration was:11:03 minutes ?The study was terminated because of fatigue. ?Maximum heart rate achieved was 141, which is 92% of the maximum(153 beats/min). ?The target heart rate was achieved. ?The patient did not express feelings of chest discomfort. ?The blood pressure response was normal. ?Exercise capacity was excellent. ?The patient achieved a level of 13 METS. ?There were occasional atrial premature contractions. ?There is 1.5 mm of down-sloping ST segment depression in the leads. ?Lead II ?Lead III ?AVF ?V3 ?V4 ?This was a negative electrocardiographic stress test for ischemia. ?EKG: nondiagnostic ST-T changes. ?EKG: Premature atrial contractions noted. ?The patient is taking a beta berna. ?The patient is taking a lipid lowering agent. FINDINGS: Recovery Stress ?EKG: Premature atrial contractions noted. ?The patient is taking a beta berna. ?The patient is taking a lipid lowering agent. Wall Motion: Segment Name ?Rest ?Peak ? Base-Anteroseptal ?? Normal ?Normal ? Base-Anterior ? Normal ?Normal ? Base-Anterolateral ??Normal ?Normal ? Base-Posterolateral Normal ?Normal ? Base-Inferior ? Normal ?Hypokinetic ? Base-Inferoseptal ?? Normal ?Akinetic ? Mid-Anteroseptal ?Normal ?Normal ? Mid-Anterior ?Normal ?Normal ? Mid-Anterolateral ?? Normal ?Normal ? Mid-Posterolateral ??Normal ?Normal ? Mid-Inferior ?Normal ?Normal ? Mid-Inferoseptal ?Normal ?Normal ? [place]-Septal ? Normal ?Normal ? [place]-Anterior ? Normal ?Normal ? [place]-Lateral ?Normal ?Normal ? [place]-Inferior ? Normal ?Normal ? [place]-Tip ?Normal ?Normal ? Chambers ?Value ?Units (Range) ? LV EF Est ? 65 ? % (55 to 80) ? LA area ? 24 ? cm2 (<21) ? RA area ? 19 ? cm2 (<18) ? Ao root ? 3.3 ?cm (2.1 to 3.6) ? Mitral Valve ?Value ?Units (Range) ? E peak ?0.62 ? m/sec ? E/A ratio ? 1.3 ?ratio ? MVDT ?230 ?msec ? E1 ?0.1 ?m/sec ? E/E1 ?6.2 ?ratio ? Tricuspid/Pulmonic Valves ?Value ?Units (Range) ? TR peak stevie ? 2.4 ?m/sec ? RAP ? 3 ?mmHg ? RVSP/PASP ? 26 ? mmHg ? This report has been electronically signed by: Rayshawn Morley MD ? 11/12/2011 14:35:26 Images reviewed and interpretation verified [facility] Procedure Note Rayshawn Morley MD - 11/12/2011 Procedure: Stress Echocardiogram Patient: JULIANE No DOB(Age): 1945(65) Med Rec#: [id number] Sex: M [place] [facility] [place] Ht / Wt: 178(cm)/94(kg) Pt. Loc: Echo Lab BSA: 2.16 Study Date: 11/12/2011 Pt. Type: Outpatient Tape: Referring: Mejia LunaRavinder ([id number]) Metal Drill Press Operator: Jey Zhu Utility Sales And Service Manager: Ramy Villa Diagnosis: Coronary atherosclerosis of unspecified vessel (414.00) CPT Code(s): Color Doppler (70989), Stress Echo (45147), Doppler LTD (39596), ECG Interpretation (77206), Definity (96336YQ), Indication(s): CAD, H/O Medication(s): Rhythm: Stage HR BP Rest 60 160/70 Peak 141 190/70 Recovery 82 130/70 SUMMARY: 1. Exercise echo is negative for ischemia at this level of stress. 2. Patient followed a Navneet protocol. The patient exercised into stage 4. The total exercise duration was:11:03 minutes (13 METS). The study was terminated because of fatigue. Maximum heart rate achieved was 141 bpm, which is 92% of the maximum (153 beats/min). The target heart rate was achieved. The patient did not express feelings of chest discomfort. 3. Echo: There is normal global left ventricular systolic function. Ejection fraction is estimated to be 65%. There are no left ventricular segmental wall motion abnormalities. During the immediate post exercise period, there is vigorous recruitment of all hagan. 4. ECG: NSR. Non-specific T wave inversions. No ST changes. 5. Other details as below. FINDINGS: Rest Study Quality Technically limited Left Ventricle The left ventricular chamber size is normal. Left ventricular wall thickness is normal. There is normal global left ventricular systolic function. Ejection fraction is estimated to be 65%. There are no left ventricular segmental wall motion abnormalities. Left Atrium The left atrium is mildly dilated. Right Ventricle The right ventricle is probably normal in size. Right ventricular global systolic function is poorly visualized. The estimated pulmonary artery systolic pressure is 26 mmHg. The estimated right atrial pressure is 3 mmHg. Right Atrium The right atrium is mildly dilated. Aortic Valve The aortic valve is not well visualized. There is no evidence of aortic valve stenosis. There is no evidence of aortic regurgitation. Mitral Valve The mitral valve is probably normal. There is no evidence of mitral regurgitation. Tricuspid Valve The tricuspid valve is probably normal. There is mild (1+/4+) tricuspid regurgitation present. Pericardium There is no pericardial effusion. Aorta The aorta appears normal. The aortic root is normal in size. Stress EKG: normal sinus rhythm. The patient is taking a beta berna. The patient is taking a lipid lowering agent. [place] Definity contrast (one 1.5 ml vial)was used to enhance endocardial definition. Excess contrast was discarded. Stress echo, limited spectral Doppler, color Doppler and ECG interpretation performed. FINDINGS: Peak Left Ventricle The basal inferior and basal inferoseptal wall segments deteriorated. Stress Patient followed a Navneet protocol. The patient exercised into stage 4. The total exercise duration was:11:03 minutes The study was terminated because of fatigue. Maximum heart rate achieved was 141, which is 92% of the maximum(153 beats/min). The target heart rate was achieved. The patient did not express feelings of chest discomfort. The blood pressure response was normal. Exercise capacity was excellent. The patient achieved a level of 13 METS. There were occasional atrial premature contractions. There is 1.5 mm of down-sloping ST segment depression in the leads. Lead II Lead III AVF V3 V4 This was a negative electrocardiographic stress test for ischemia. EKG: nondiagnostic ST-T changes. EKG: Premature atrial contractions noted. The patient is taking a beta berna. The patient is taking a lipid lowering agent. FINDINGS: Recovery Stress EKG: Premature atrial contractions noted. The patient is taking a beta berna. The patient is taking a lipid lowering agent. Wall Motion: Segment Name Rest Peak Base-Anteroseptal Normal Normal Base-Anterior Normal Normal Base-Anterolateral Normal Normal Base-Posterolateral Normal Normal Base-Inferior Normal Hypokinetic Base-Inferoseptal Normal Akinetic Mid-Anteroseptal Normal Normal Mid-Anterior Normal Normal Mid-Anterolateral Normal Normal Mid-Posterolateral Normal Normal Mid-Inferior Normal Normal Mid-Inferoseptal Normal Normal [place]-Septal Normal Normal [place]-Anterior Normal Normal [place]-Lateral Normal Normal [place]-Inferior Normal Normal [place]-Tip Normal Normal Chambers Value Units (Range) LV EF Est 65 % (55 to 80) LA area 24 cm2 (<21) RA area 19 cm2 (<18) Ao root 3.3 cm (2.1 to 3.6) Mitral Valve Value Units (Range) E peak 0.62 m/sec E/A ratio 1.3 ratio MVDT 230 msec E1 0.1 m/sec E/E1 6.2 ratio Tricuspid/Pulmonic Valves Value Units (Range) TR peak stevie 2.4 m/sec RAP 3 mmHg RVSP/PASP 26 mmHg This report has been electronically signed by: Rayshawn Morley MD 11/12/2011 14:35:26 Images reviewed and interpretation verified [facility] Mejia Luna MD ECHO ORDERABLES documented in this encounter Visit Diagnoses Diagnosis CAD (coronary artery disease) Coronary atherosclerosis of unspecified type of vessel, pechanga or graft documented in this encounter Administered Medications Inactive Administered Medications - up to 3 most recent administrations Medication Order MAR Action Action Date Dose Rate Site perflutren lipid microspheres (DEFINITY) injection 0.5 mL 0.5 mL, Intravenous, IMG ONCE PRN, 1 dose, Starting on Hafsa 2/12 at 1412, Until Hafsa 2/12 at 1412, Other, for enhancement of sub-optimal echo images, Echo Lab (Intra-Procedure), Routine Given 11/12/2011 2:12 PM EST 0.5 mLs documented in this encounter Care Teams Outpatient Physical Therapist Relationship Specialty Start Date End Date Lulú Toribio MD [address] [place] [address] [address] [place] [address] PCP - General 09/02/10 documented as of this encounter
--- OUTSIDE RECORDS SUMMARY | 2024-10-27 00:14 | XMS_ITS | Clinical Summary ---
Author Organization [facility] Address [address] [place] [address] Care Team Providers Care Strand And Binder Controller Name Role Phone Remedios Troncoso MD Primary [...] Orientation Not on file Plan of Treatment Health Maintenance Due Date Last Done Comments Fall Risk Screening 12/25/2008 RSV Immunization ( o r 60+ Years) (1 - 1-dose 75+ series) 12/25/2018 COVID-19 Vaccine ( season) 2024 Care Teams Strand And Binder Controller Relationship Specialty Start Date End Date Remedios Troncoso MD PCP - General 07/04/10
--- OUTSIDE RECORDS SUMMARY | 2024-10-27 00:14 | XMS_ITS | Encounter Summary ---
Author Organization [facility] Address [address] [place] [address] Care Team Providers Care Cover Making Machine Operator Name Role Phone Remedios Troncoso MD Primary Care Provide r Unavailable Encounter Details Date Type Department Care Team (Late st Contact Info) Description 06/08/2017 Results Only [facility] [phone] Hernando Vela, DO [address] [facility] [address] [place], [place] [phone] Social History Tobacco Use Types Packs/Day Years [...] Date/Time Associated Diagnosis Comments SURGICAL PATHOLOGY Routine 06/08/2017 9:03 EDT documented in this encounter Results * SURGICAL PATHOLOGY (06/08/2017 9:03 EDT) Pathology Report: SURGICAL PATHOLOGY REPORT Reports generated via electronic interface contain original data; however they are lacking the format of the original report. Caution should be taken when reading/interpret ing unformatted reports. Name: ? SHARIF RAYMUNDO ? Accession #: ? [id number] ? : ? 1945 (Age: 71) ??M ? Collect Date: ? 06/08/2017 ? Location: ? [facility] ? Receive Date: ? 06/09/2017 ? Provider: HERNANDO VELA DO Copy to: BERENICE SOLANO MD ? Final Pathologic Diagnosis: A. COLON, TRANSVERSE, POLYP, BIOPSY: - ??Fragments of tubular adenoma. Document reviewed and electronically signed by: EVELINE ESCOBAR MD Report ??Date: 06/11/2017 14:27 By the signature above, the attending physician certifies that he/she has personally conducted a gross and/or microscopic examination of the described specimens and rendered or confirmed the above diagnosis. Specimen(s) Received: Transverse colon polyp Clinical History: Hx colon polyps Gross Description: ? Received in formalin labelled with proper patient identification (initials L, D) and transverse colon polyp are two pink-dean tissues (0.2 x 0.2 x 0.2 cm and 0.3 x 0.2 x 0.2 cm). Entirely submitted in 1. CHRISTOPH Hayden (ASCP) 06/09/2017 9:42 AM End of Report [facility] 06/08/2017 9:03 EDT 06/09/2017 9:03 EDT us Hernando Vela DO PATHOLOGY ORDERABLES Fi nal Result [facility] [address] [place] [address] documented in this encounter Visit Diagnoses Not on filedocumented in this encounter Care Teams Cover Making Machine Operator Relationship Specialty Start Date End Date Remedios Troncoso MD PCP - General 07/04/10 documented as of this encounter
--- OUTSIDE RECORDS SUMMARY | 2024-10-27 00:14 | XMS_ITS | Encounter Summary ---
Author Organization [facility] [address] Care Team Providers Care Field Supervisor Name Role Phone Lulú Toribio MD Primary Care Provider [phone] Encounter Details Date Type Department Care Team (Late st Contact Info) Description 11/27/2014 Orders Only Cardiology at [address] [phone] Yakov Cassidy PA ASCVD (arteriosclerotic cardiovascular disease) Social History Tobacco Use Types Packs/Day Years Used Date Smoking Tobacco: Never Smokeless Tobacco: Never Sex and Gender Information Value Date Recorded Sex Assigned at Not on file Gender Identity Not on file Sexual Orientation Not on file documented as of this encounter Plan of Treatment Not on file documented as of this encounter Procedures Procedure Name Priority Date/Time Associated Diagnosis Comments CARDIAC CATHETERIZATION Routine 11/28/2014 12:19 PM EST ASCVD (arteriosclerotic cardiovascular disease) documented in this encounter Results * CARDIAC CATHETERIZATION (11/28/2014 12:19 PM EST) Anatomical Region Laterality Modality Other Narrative 11/28/2014 1:04 PM EST ?[facility] ? Cardiac Catheterization/Intervention Report ? Patient Name: Libbemorales, Sergio. ? Procedure Date: 11/28/2014 ? A #: [id number] ? Primary Physician: Shakeel, Navneet Elias. ? Case #: [id number] ? File Name: [id number] ? Catheterization Order Number: [id number] ? [facility] ? Final Report [place], [place] ? Patient Name: ? Daren Olguin ?ID#: ?[id number] ? : ?1945 ? Procedure Date: ? November 28, 2014 ?Case #: ? [id number] ? Room: ? 6 ? Case Physician: ? Navneet Beckford M.D. ?Start: ?09:46 ?Fellow: ? Matthew Hyde [facility], ?Admission: ??11/28/2014 ?M.D. ? Discharge: ??11/29/2014 ? Referring ? Lulú Toribio M.D. ? Physicians: ?Ron Huerta M.D. ? Procedures: ?* Coronary Angiography ?* Left Heart Catheterization ?* Bypass Graft Study ?* Coronary Angioplasty ?* Coronary Stent Insertion ?* Vascular Closure Device Deployment ?* Access Site Angiography ?* Selective Subclavian Angiography ? History ?Daren Olguin is a 68 year old man. He has a family history of coronary ?artery disease. The patient has hypercholesterolemia managed with lipid ?therapy. He has diabetes managed with oral medication. The patient has ?stable angina, a history of chest pain and a prior history of coronary ?artery disease. He is status post a remote myocardial infarction. The ?patient had a remote coronary intervention procedure. He had remote ?coronary artery bypass surgery. The patient has a history of dyspnea with ?NYHA functional class II. He also has a history of an abnormal stress ?test. Prior to the initiation of this procedure, the patient was ?designated as ASA Class III. ? Patient Status at Catheterization: ?The patient presented with: stable angina (w/i 42 days). [place] ?Cardiovascular Society angina class was II. This patient was on beta ?blockers and nitrates prior to the procedure. A SPECT stress test was ?performed and results were Positive and Intermediate Risk ischemia ?assessment. ? Technique: ?A 6Fr sheath was inserted in the right femoral artery utilizing the ?Seldinger technique. The bypass graft was injected utilizing a 6Fr OBEY ?catheter. A 6Fr OBEY catheter was used to inject the mammary artery. The ?left coronary artery was injected utilizing a 6Fr JL 4 catheter. Left ?ventricle was performed with a 6Fr Angled pigtail catheter. Coronary ?angioplasty and coronary stent insertion were performed and the equipment ?utilized will be described in the intervention summary section. 2,000 ?units of heparin were administered. Bivaluridin bolus 68mg and infusion ?158mg/hr was administered. A total of 300cc of Omnipaque were opened, ?210cc of Omnipaque were administered and 90cc of Omnipaque were wasted. ?Radiation: Fluoro time was 39.4 minutes, dose area product was 291,065 ?mGYcm2 and air kerma was 3,956 mGY. ?The patient received the following medications prior to and during the ?procedure: Aspirin (any), Clopidogrel, Unfractionated Heparin (any) and ?Bivalirudin. ? Hemodynamics: ?Left Heart Pressures ? Resting: ? Syst Diast ? EDP ?a ?v ? m ?Ao 120 ?? 51 ?77 ?LV 110 ? 24 ? Post Contrast: ? Syst Diast ? EDP ?a ?v ? m ?Ao 106 ?? 44 ?67 ?LV 113 ? 23 ? Coronary Angiography: ?Dominance: Co-dominant ?Left Main ? There was mild diffuse disease of the entire vessel segment of the ? left main artery and it was calcified. ??The left main was large. ? The previously placed stent is patent. ?Left Anterior Descending ? There was a 50% single discrete stenosis of the ostial segment of ? the left anterior descending artery (LAD). ??The proximal segment of ? the LAD had a calcified and eccentric single discrete 90% stenosis. ? There also was a single discrete total occlusion of the mid segment ? of the LAD. ??Distal flow was via a bypass graft. ?Left Circumflex ? There was moderate diffuse disease of the entire vessel segment of ? the left circumflex artery (LCX) and it was calcified. ??The LCX was ? large. ??The previously placed stent is patent. The proximal segment ? of the LCX had a single discrete 40% stenosis. ? There was a 98% stenosis of the ostial segment of the left posterior ? descending branch (LPDA) of the LCX. ??Distal flow was decreased. ? The proximal segment of the LPDA was noted. ??Distal flow was via ? collaterals from the LAD. ?Right Coronary Artery ? There was moderate diffuse disease of the entire vessel segment of ? the right posterior descending branch (RPDA) of the right coronary ? artery (RCA) and it was calcified. ??The RPDA was moderate in size. ?Ramus ? There was a single discrete total occlusion of the ostial segment of ? the ramus. ??The ramus was moderate in size. ??Distal flow was via a ? bypass graft. ? Bypass Grafts: ?There was a total of two bypass grafts evaluated during this procedure. ?1. ?? Left internal mammary artery graft to the LAD ? There was a left internal mammary artery graft with a single ? anastomosis to the left anterior descending artery (LAD). ? There was no evidence of obstruction in this graft. Distal flow was ? normal. ?2. ?? Saphenous vein graft to the ramus ? There was a saphenous vein graft with a single anastomosis to the ? ramus. ? There was a 25% eccentric single discrete stenosis of the proximal ? portion of the segment of this graft between the origin of this ? graft and the ramus. Distal flow was normal. ? Indication for Intervention: ?Coronary intervention was indicated for treatment of stable angina, CCS ?Class II. Left ventricular Ejection Fraction was estimated at 49 percent. ?The priority for the procedure was Elective. The NCDR indication for the ?procedure was Stable angina. ? Intervention Summary: ?Left Anterior Descending Artery ? Proximal 90% ? Stent insertion was performed on the 90% stenosis in the ? proximal segment of the LAD. This was a de kitty lesion. ? According to the ACC/AHA classification system, this lesion ? was a type B2 moderate risk lesion. Primary prevention of ? restenosis was the indication for stent insertion. This was ? the culprit lesion. Vessel flow pre intervention was REGGIE 2. ? Stent insertion was accomplished through a 6 Fr. EBU 4.0 ? guide. ??The lesion was predilated with a 2.00mm Hawley 15 mm ? balloon with a maximum inflation pressure of 18 atmospheres. ? A premounted 2.25 x 16 mm Promus Premier (FRENCH) was deployed ? with a maximum inflation pressure of 18 atmospheres. ? Following stent deployment, the lesion was dilated using a ? 2.50mm NC Quantum Hawley 12 mm balloon with a maximum inflation ? pressure of 21 atmospheres. ? The final outcome was defined as successful. There was no ? residual stenosis following this intervention. The final REGGIE ? flow was 3. ? The balloons and stent passed easily through LM stent into ? proximal LAD. ?Left Posterior Descending Branch of the LCX ? Ostial 98% ? Angioplasty was attempted on the 98% stenosis in the ostial ? segment of the LPDA. This was a de kitty lesion. This lesion ? was designated a type C moderate risk lesion based on ACC/AHA ? classification system. Vessel flow pre intervention was REGGIE ? 1. ? Angioplasty was attempted through a 6 Fr EBU 4.0 guide. ? The final outcome was defined as unsuccessful due to an ? inability to cross lesion with a guide wire. The residual ? stenosis following this intervention was 98%. The final REGGIE ? flow was 1. ? Ostial lesion at trifurcation and multiple attempts with BMW, ? Fielder XT and Intuition wire were unsuccessful. ? Vascular Access Angiogram: ?A selective angiogram at the right femoral artery revealed no significant ?obstructive disease. ? Vascular Closure Device: ?A 6 Fr Perclose was deployed at the right femoral artery access site. ?This device was successful. ? Conclusions: ?* Three vessel coronary artery disease (LAD, LCX and RCA) ?* Patent left internal mammary artery graft to the LAD ?* Nonobstructive disease of the saphenous vein graft to the ramus ?* Elevated left ventricular end diastolic pressure ?* Successful stent insertion of the proximal LAD lesion ?* Unsuccessful angioplasty of the ostial LPDA lesion ?* Drug eluting stent (FRENCH) implanted. ?* Chronic total occlusion LPDA ?* Compared to previous study new severe stenosis proximal LAD ?* Left main/LCx stent is patent with mild to moderate diffuse disease. ? Complications/Events: ?The patient had no complications during these procedures. ? Recommendations: ?The patient's medical regimen was changed as follows: Drug eluting stent ?(FRENCH) implanted. Continue clopidogrel 75 mg po daily for a minimum of 12 ?months and aspirin indefinitely. ? Comments: ?Selective Angiography ?Selective left subclavian angiography performed for evaluation of ?peripheral vascular disease by selective placement of a 6 Fr GOMEZ ?catheter in the left subclaviam artery and separate injection of ?contrast. The left subclavian artery shows mild diffuse nonobstructive ?disease. ?The attending physician was present for the entire procedure. ?Dr. Navneet Beckford M.D. performed the coronary angiography, left heart ?catheterization, access site angiography, vascular closure device, stent ?insertion-coronary, bypass graft study, angiography- selective subclavian ?and angioplasty-coronary. ? Navneet Beckford M.D. ? Electronically Signed by: Navneet Beckford M.D. ? Report Finalized: 11/28/2014 ??12:52 ? Report Last Ammended: 07/06/2015 ??14:58 ? Procedure Note Navneet Beckford MD - 07/06/2015 [facility] Cardiac Catheterization/Intervention Report Patient Name: Sharif Sergio. Procedure Date: 11/28/2014 A #: [id number] Primary Physician: Navneet Beckford. Case #: [id number] File Name: [id number] Catheterization Order Number: [id number] [facility] FinalReport [place], [place] Patient Name: Daren Olguin ID#:[id number] :1945 Procedure Date: November 28, 2014 Case #: [id number] Room: 6 Case Physician: Navneet Beckford M.D. Start: 09:46 Fellow: Matthew Hatfield, Admission:11/28/2014 [place] Discharge:11/29/2014 Referring Lulú Toribio M.D. Physicians: Ron Huerta M.D. Procedures: * Coronary Angiography * Left Heart Catheterization * Bypass Graft Study * Coronary Angioplasty * Coronary Stent Insertion * Vascular Closure Device Deployment * Access Site Angiography * Selective Subclavian Angiography History Daren Olguin is a 68 year old man. He has a family history ofcoronary artery disease. The patient has hypercholesterolemia managed withlipid therapy. He has diabetes managed with oral medication. The patienthas stable angina, a history of chest pain and a prior history ofcoronary artery disease. He is status post a remote myocardial infarction.The patient had a remote coronary intervention procedure. He had remote coronary artery bypass surgery. The patient has a history of dyspneawith NYHA functional class II. He also has a history of an abnormalstress test. Prior to the initiation of this procedure, the patient was designated as ASA Class III. Patient Status at Catheterization: The patient presented with: stable angina (w/i 42 days). [place] Cardiovascular Society angina class was II. This patient was on beta blockers and nitrates prior to the procedure. A SPECT stress testwas performed and results were Positive and Intermediate Risk ischemia assessment. Technique: A 6Fr sheath was inserted in the right femoral artery utilizing the Seldinger technique. The bypass graft was injected utilizing a 6FrIMA catheter. A 6Fr OBEY catheter was used to inject the mammary artery.The left coronary artery was injected utilizing a 6Fr JL 4 catheter.Left ventricle was performed with a 6Fr Angled pigtail catheter. Coronary angioplasty and coronary stent insertion were performed and theequipment utilized will be described in the intervention summary section.2,000 units of heparin were administered. Bivaluridin bolus 68mg andinfusion 158mg/hr was administered. A total of 300cc of Omnipaque wereopened, 210cc of Omnipaque were administered and 90cc of Omnipaque werewasted. Radiation: Fluoro time was 39.4 minutes, dose area product [id number] mGYcm2 and air kerma was 3,956 mGY. The patient received the following medications prior to and duringthe procedure: Aspirin (any), Clopidogrel, Unfractionated Heparin (any)and Bivalirudin. Hemodynamics: Left Heart Pressures Resting: Syst Diast EDP a v m Ao 120 51 77 LV 110 24 Post Contrast: Syst Diast EDP a v m Ao 106 44 67 LV 113 23 Coronary Angiography: Dominance: Co-dominant Left Main There was mild diffuse disease of the entire vessel segment ofthe left main artery and it was calcified. The left main waslarge. The previously placed stent is patent. Left Anterior Descending There was a 50% single discrete stenosis of the ostial segmentof the left anterior descending artery (LAD). The proximalsegment of the LAD had a calcified and eccentric single discrete 90%stenosis. There also was a single discrete total occlusion of the midsegment of the LAD. Distal flow was via a bypass graft. Left Circumflex There was moderate diffuse disease of the entire vessel segmentof the left circumflex artery (LCX) and it was calcified. The LCXwas large. The previously placed stent is patent. The proximalsegment of the LCX had a single discrete 40% stenosis. There was a 98% stenosis of the ostial segment of the leftposterior descending branch (LPDA) of the LCX. Distal flow wasdecreased. The proximal segment of the LPDA was noted. Distal flow wasvia collaterals from the LAD. Right Coronary Artery There was moderate diffuse disease of the entire vessel segmentof the right posterior descending branch (RPDA) of the rightcoronary artery (RCA) and it was calcified. The RPDA was moderate insize. Ramus There was a single discrete total occlusion of the ostialsegment of the ramus. The ramus was moderate in size. Distal flow wasvia a bypass graft. Bypass Grafts: There was a total of two bypass grafts evaluated during thisprocedure. 1. Left internal mammary artery graft to the LAD There was a left internal mammary artery graft with a single anastomosis to the left anterior descending artery (LAD). There was no evidence of obstruction in this graft. Distal flowwas normal. 2. Saphenous vein graft to the ramus There was a saphenous vein graft with a single anastomosis tothe ramus. There was a 25% eccentric single discrete stenosis of theproximal portion of the segment of this graft between the origin of this graft and the ramus. Distal flow was normal. Indication for Intervention: Coronary intervention was indicated for treatment of stable angina,CCS Class II. Left ventricular Ejection Fraction was estimated at 49percent. The priority for the procedure was Elective. The NCDR indication forthe procedure was Stable angina. Intervention Summary: Left Anterior Descending Artery Proximal 90% Stent insertion was performed on the 90% stenosis in the proximal segment of the LAD. This was a de kitty lesion. According to the ACC/AHA classification system, thislesion was a type B2 moderate risk lesion. Primary prevention of restenosis was the indication for stent insertion. Thiswas the culprit lesion. Vessel flow pre intervention was TIMI2. Stent insertion was accomplished through a 6 Fr. EBU 4.0 guide. The lesion was predilated with a 2.00mm Hawley 15mm balloon with a maximum inflation pressure of 18atmospheres. A premounted 2.25 x 16 mm Promus Premier (FRENCH) wasdeployed with a maximum inflation pressure of 18 atmospheres. Following stent deployment, the lesion was dilated usinga 2.50mm NC Quantum Hawley 12 mm balloon with a maximuminflation pressure of 21 atmospheres. The final outcome was defined as successful. There was no residual stenosis following this intervention. The finalTIMI flow was 3. The balloons and stent passed easily through LM stentinto proximal LAD. Left Posterior Descending Branch of the LCX Ostial 98% Angioplasty was attempted on the 98% stenosis in theostial segment of the LPDA. This was a de kitty lesion. Thislesion was designated a type C moderate risk lesion based onACC/AHA classification system. Vessel flow pre intervention wasTIMI 1. Angioplasty was attempted through a 6 Fr EBU 4.0 guide. The final outcome was defined as unsuccessful due to an inability to cross lesion with a guide wire. The residual stenosis following this intervention was 98%. The finalTIMI flow was 1. Ostial lesion at trifurcation and multiple attempts withBMW, Fielder XT and Intuition wire were unsuccessful. Vascular Access Angiogram: A selective angiogram at the right femoral artery revealed nosignificant obstructive disease. Vascular Closure Device: A 6 Fr Perclose was deployed at the right femoral artery accesssite. This device was successful. Conclusions: * Three vessel coronary artery disease (LAD, LCX and RCA) * Patent left internal mammary artery graft to the LAD * Nonobstructive disease of the saphenous vein graft to the ramus * Elevated left ventricular end diastolic pressure * Successful stent insertion of the proximal LAD lesion * Unsuccessful angioplasty of the ostial LPDA lesion * Drug eluting stent (FRENCH) implanted. * Chronic total occlusion LPDA * Compared to previous study new severe stenosis proximal LAD * Left main/LCx stent is patent with mild to moderate diffusedisease. Complications/Events: The patient had no complications during these procedures. Recommendations: The patient's medical regimen was changed as follows: Drug elutingstent (FRENCH) implanted. Continue clopidogrel 75 mg po daily for a minimumof 12 months and aspirin indefinitely. Comments: Selective Angiography Selective left subclavian angiography performed for evaluation of peripheral vascular disease by selective placement of a 6 Fr GOMEZ catheter in the left subclaviam artery and separate injection of contrast. The left subclavian artery shows mild diffusenonobstructive disease. The attending physician was present for the entire procedure. Dr. Navneet Beckford M.D. performed the coronary angiography, leftheart catheterization, access site angiography, vascular closure device,stent insertion-coronary, bypass graft study, angiography- selectivesubclavian and angioplasty-coronary. Navneet Beckford M.D. Electronically Signed by: Navneet Beckford M.D. Report Finalized: 11/28/2014 12:52 Report Last Ammended: 07/06/2015 14:58 Navneet Beckford MD CARDIAC CATH ORDERAB LES documented in this encounter Visit Diagnoses Diagnosis ASCVD (arteriosclerotic cardiovascular disease) Unspecified cardiovascular disease ASCVD (arteriosclerotic cardiovascular disease) Unspecified cardiovascular disease documented in this encounter Care Teams Field Supervisor Relationship Specialty Start Date End Date Lulú Toribio MD [address] [place] [address] PCP - General 09/02/10 documented as of this encounter
--- OUTSIDE RECORDS SUMMARY | 2024-10-27 00:14 | XMS_ITS | Encounter Summary ---
[place] [address] Care Team Providers Care Meters Superintendent Name Role Phone Lulú Toribio MD Primary Care Provider [phone] Encounter Details Date Type Department Care Team (Late st Contact Info) Description 12/22/2010 9:44 AM EDT - 12/22/2010 11:59 PM EDT Hospital Encounter Non-Invasive [place] [address] Social History Tobacco Use Types Packs/Day Years [...] Diagnosis Comments ECHOCARDIOGRAM STRESS TEST (TREADMILL) Routine 12/22/2010 documented in this encounter Results * ECHOCARDIOGRAM STRESS TEST (TREADMILL) (12/22/2010) Anatomical Region Laterality Modality Other 12/22/2010 Narrative 12/22/2010 5:12 PM EDT Procedure: ? Stress Echocardiogram ? Patient: ? JULIANE No ?(Age): 1945(64) Med Rec#: ?[id number] ?Sex: ?M ? Site Loc: ?[facility] [place] ?Ht / Wt: ??172(cm)/94(kg) Pt. Loc: ? Echo Lab ?BSA: ?2.12 Study Date: ?12/22/2010 ?Pt. Type: Outpatient Tape: ? Referring: Mejia Luna Referring: Lulú Toribio Religious Assistant: Jey Zhu Director Of Bands: Carlton Molina MS, [facility] Diagnosis: ??Cardiac disease (429.9) ??Ischemia (414.9) CPT Code(s): ??Doppler LTD (04345), ??Stress Echo (03646), ??Color Doppler (86523), ??ECG Interpretation (91785), ??Definity (44380LA), Indication(s): ??Ischemia, R/O Medication(s): ?? Rhythm: Stage ?HR ?BP Rest ? 54 ?140/76 ?? Peak ? 130 ? 180/76 ?? Recovery ? 83 ?144/78 ?? SUMMARY: 1. Definity contrast (one 1.5 ml vial)was used to enhance endocardial definition. Excess contrast was discarded.Despite the use of contrast, there were a few basal wall segments that were difficult to visualize, especially the basal inferior and anterior wall.The study was terminated because of fatigue.The patient did not express feelings of chest discomfort.There is 1.0 mm of down-sloping ST segment depression in the inferolateral leads. (horizontal to downsloping most prominent in recovery).Patient followed a Navneet protocol. The patient exercised into stage 4. The total exercise duration was: The study was terminated because of fatigue. Maximum heart rate achieved was 130, which is 84% of the maximum(154 beats/min). The target heart rate was not achieved. The patient achieved a level of 12 METS. 2. RESTING ECHO:The left ventricle is probably normal in size.There are no left ventricular segmental wall motion abnormalities.There is normal global left ventricular systolic function. ??Ejection fraction is estimated to be 60%.Right ventricular global systolic function is probably normal.The estimated pulmonary artery systolic pressure is 38 mmHg. 3. There is no hemodynamically significant valve disease. 4. Other echo and stress findings as noted in report. FINDINGS: Rest Left Ventricle ?The left ventricle is probably normal in size. ?There is normal global left ventricular systolic function. ??Ejection fraction is estimated to be 60%. ?There are no left ventricular segmental wall motion abnormalities. Left Atrium ?The left atrium is probably normal in size. Right Ventricle ?Right ventricular global systolic function is probably normal. ?The estimated pulmonary artery systolic pressure is 38 mmHg. ?The estimated right atrial pressure is 8 mmHg. Right Atrium ?The right atrium is [...] in structure and function. ?There is trace tricuspid regurgitation present. Pericardium ?There is no pericardial effusion. Stress ?EKG: Premature atrial contractions noted. ?EKG: sinus bradycardia. ?The patient is taking a beta berna. ?The patient is taking aspirin. ?The patient is taking an anti-platelet medication. Misc ?Other echo and stress findings as noted in report. ?There is no hemodynamically significant valve disease. ?Definity contrast (one 1.5 ml vial)was used to enhance endocardial definition. Excess contrast was discarded. ?Stress echo, limited spectral Doppler, color Doppler and ECG interpretation performed. FINDINGS: Peak Left Ventricle ?Global left ventricular systolic function appears hyperdynamic. ?There are no left ventricular segmental wall motion abnormalities. Stress ?Patient followed a Navneet protocol. ?The patient exercised into stage 4. ?The total exercise duration was: ?The study was terminated because of fatigue. ?Maximum heart rate achieved was 130, which is 84% of the maximum(154 beats/min). ?The target heart rate was not achieved. ?The patient did not express feelings of chest discomfort. ?The blood pressure response was normal. ?Exercise capacity was good. ?The patient achieved a level of 12 METS. ?There were frequent atrial premature contractions. ?There is 1.0 mm of down-sloping ST segment depression in the leads. (horizontal to downsloping most prominent in recovery). ?Lead II ?Lead III ?AVF ?V3 ?V4 ?V5 ?This was a positive electrocardiographic stress test. ?EKG: Premature atrial contractions noted. FINDINGS: Recovery Stress ?EKG: Premature atrial contractions noted. Wall Motion: Segment Name ?Rest ?Peak ? Base-Anteroseptal ?? Normal ?Normal ? Base-Anterior ? Normal ?Normal ? Base-Anterolateral ??Normal ?Normal ? Base-Posterolateral Normal ?Normal ? Base-Inferior ? Normal ?Normal ? Base-Inferoseptal ?? Normal ?Normal ? Mid-Anteroseptal ?Normal ?Normal ? Mid-Anterior ?Normal ?Normal ? Mid-Anterolateral ?? Normal ?Normal ? Mid-Posterolateral ??Normal ?Normal ? Mid-Inferior ?Normal ?Normal ? Mid-Inferoseptal ?Normal ?Normal ? [place]-Septal ? Normal ?Normal ? [place]-Anterior ? Normal ?Normal ? [place]-Lateral ?Normal ?Normal ? [place]-Inferior ? Normal ?Normal ? [place]-Tip ?Normal ?Normal ? Chambers ?Value ?Units (Range) ? LV EF Est ? 60 ? % (55 to 80) ? Mitral Valve ?Value ?Units (Range) ? E peak ?0.61 ? m/sec ? E/A ratio ? 1.5 ?ratio ? MVDT ?202 ?msec ? E1 ?0.13 ? m/sec ? E/E1 ?4.7 ?ratio ? Tricuspid/Pulmonic Valves ?Value ?Units (Range) ? TR peak stevie ? 2.8 ?m/sec ? RAP ? 8 ?mmHg ? RVSP/PASP ? 38 ? mmHg ? This report has been electronically signed by: Austen Chao MD ? 12/22/2010 17:11:21 Images reviewed and interpretation verified [facility] Cardiac Ultrasound Laboratory Procedure Note 12/22/2010 Procedure: Stress Echocardiogram Patient: JULIANE HARDY(Age): 1945(64) Med Rec#: [id number] Sex: M Site Loc: [facility] [place] Ht / Wt: 172(cm)/94(kg) Pt. Loc: Echo Lab BSA: 2.12 Study Date: 12/22/2010 Pt. Type: Outpatient Tape: Referring: Mejia Luna Referring: Lulú Toribio Religious Assistant: Jey Zhu Director Of Bands: Carlton Molina MS, [facility] Diagnosis: Cardiac disease (429.9) Ischemia (414.9) CPT Code(s): Doppler LTD (96460), Stress Echo (60665), Color Doppler (00034), ECG Interpretation (41068), Definity (91589DR), Indication(s): Ischemia, R/O Medication(s): Rhythm: Stage HR BP Rest 54 140/76 Peak 130 180/76 Recovery 83 144/78 SUMMARY: 1. Definity contrast (one 1.5 ml vial)was used to enhance endocardial definition. Excess contrast was discarded.Despite the use of contrast, there were a few basal wall segments that were difficult to visualize, especially the basal inferior and anterior wall.The study was terminated because of fatigue.The patient did not express feelings of chest discomfort.There is 1.0 mm of down-sloping ST segment depression in the inferolateral leads. (horizontal to downsloping most prominent in recovery).Patient followed a Navneet protocol. The patient exercised into stage 4. The total exercise duration was: The study was terminated because of fatigue. Maximum heart rate achieved was 130, which is 84% of the maximum(154 beats/min). The target heart rate was not achieved. The patient achieved a level of 12 METS. 2. RESTING ECHO:The left ventricle is probably normal in size.There are no left ventricular segmental wall motion abnormalities.There is normal global left ventricular systolic function. Ejection fraction is estimated to be 60%.Right ventricular global systolic function is probably normal.The estimated pulmonary artery systolic pressure is 38 mmHg. 3. There is no hemodynamically significant valve disease. 4. Other echo and stress findings as noted in report. FINDINGS: Rest Left Ventricle The left ventricle is probably normal in size. There is normal global left ventricular systolic function. Ejection fraction is estimated to be 60%. There are no left ventricular segmental wall motion abnormalities. Left Atrium The left atrium is probably normal in size. Right Ventricle Right ventricular global systolic function is probably normal. The estimated pulmonary artery systolic pressure is 38 mmHg. The estimated right atrial pressure is 8 mmHg. Right Atrium The right atrium is [...] in structure and function. There is trace tricuspid regurgitation present. Pericardium There is no pericardial effusion. Stress EKG: Premature atrial contractions noted. EKG: sinus bradycardia. The patient is taking a beta berna. The patient is taking aspirin. The patient is taking an anti-platelet medication. Misc Other echo and stress findings as noted in report. There is no hemodynamically significant valve disease. Definity contrast (one 1.5 ml vial)was used to enhance endocardial definition. Excess contrast was discarded. Stress echo, limited spectral Doppler, color Doppler and ECG interpretation performed. FINDINGS: Peak Left Ventricle Global left ventricular systolic function appears hyperdynamic. There are no left ventricular segmental wall motion abnormalities. Stress Patient followed a Navneet protocol. The patient exercised into stage 4. The total exercise duration was: The study was terminated because of fatigue. Maximum heart rate achieved was 130, which is 84% of the maximum(154 beats/min). The target heart rate was not achieved. The patient did not express feelings of chest discomfort. The blood pressure response was normal. Exercise capacity was good. The patient achieved a level of 12 METS. There were frequent atrial premature contractions. There is 1.0 mm of down-sloping ST segment depression in the leads. (horizontal to downsloping most prominent in recovery). Lead II Lead III AVF V3 V4 V5 This was a positive electrocardiographic stress test. EKG: Premature atrial contractions noted. FINDINGS: Recovery Stress EKG: Premature atrial contractions noted. Wall Motion: Segment Name Rest Peak Base-Anteroseptal Normal Normal Base-Anterior Normal Normal Base-Anterolateral Normal Normal Base-Posterolateral Normal Normal Base-Inferior Normal Normal Base-Inferoseptal Normal Normal Mid-Anteroseptal Normal Normal Mid-Anterior Normal Normal Mid-Anterolateral Normal Normal Mid-Posterolateral Normal Normal Mid-Inferior Normal Normal Mid-Inferoseptal Normal Normal [place]-Septal Normal Normal [place]-Anterior Normal Normal [place]-Lateral Normal Normal [place]-Inferior Normal Normal [place]-Tip Normal Normal Chambers Value Units (Range) LV EF Est 60 % (55 to 80) Mitral Valve Value Units (Range) E peak 0.61 m/sec E/A ratio 1.5 ratio MVDT 202 msec E1 0.13 m/sec E/E1 4.7 ratio Tricuspid/Pulmonic Valves Value Units (Range) TR peak stevie 2.8 m/sec RAP 8 mmHg RVSP/PASP 38 mmHg This report has been electronically signed by: Austen Chao MD 12/22/2010 17:11:21 Images reviewed and interpretation verified [facility] Cardiac Ultrasound Laboratory Unknown ECHO ORDERABLES documented in this encounter Visit Diagnoses Not on filedocumented in this encounter Care Teams Meters Superintendent Relationship Specialty Start Date End Date Lulú Toribio MD [address] [place] [address] [address] [place] [address] PCP - General 09/02/10 documented as of this encounter
--- OUTSIDE RECORDS SUMMARY | 2024-10-27 00:14 | XMS_ITS | Encounter Summary ---
Author Organization [facility] Address [address] [place] [address] Care Team Providers Care Revenue Enforcement Collection Agent Name Role Phone Remedios Troncoso MD Primary Care Provide r Unavailable Reason for Visit * Reason Comments Other Encounter Details Date Type Department Care Team (Late st Contact Info) Description 09/07/2019 Refill [facility] [place] [facility] [address] [place], [place] [id number] Ron Huerta MD [address] [place] [id number] Other Social History Tobacco Use Types Packs/Day Years Used Date Smoking Tobacco: Never Assessed Sex and Gender Information Value Date Recorded Sex Assigned at Not on file Legal Sex Male 18:37 EST Gender Identity Not on file Sexual Orientation Not on file documented as of this encounter Miscellaneous Notes * Telephone Encounter - Daren Alvarado RN - 09/08/2019 1432 EST Former pt of Dr. Huerta seen in [facility] ([facility] Checked with pharmacy, pt now receiving rx from PCP office. Just picked up rx for 90 days with 3 refills less than a week ago. Daren Alvarado RN documented in this encounter Plan of Treatment Not on file documented as of this encounter Visit Diagnoses Not on filedocumented in this encounter Care Teams Revenue Enforcement Collection Agent Relationship Specialty Start Date End Date Remedios Troncoso MD PCP - General 07/04/10 documented as of this encounter
--- OUTSIDE RECORDS SUMMARY | 2024-10-27 00:14 | XMS_ITS | Encounter Summary ---
Author Organization [facility] [place] [address] Care Team Providers Care Loading Rack Supervisor Name Role Phone Lulú Toriboi MD Primary Care Provider [phone] Encounter Details Date Type Department Care Team (Late st Contact Info) Description 11/16/2012 9:52 AM EST - 11/16/2012 11:59 PM [facility] Hospital Encounter Non-Invasive [place] [id number] Social History Tobacco Use Types Packs/Day Years [...] on filedocumented in this encounter Care Teams Loading Rack Supervisor Relationship Specialty Start Date End Date Lulú Toribio MD [address] [place] [address] PCP - General 09/02/10 documented as of this encounter
--- NOTE | 2024-10-27 06:30 | DI.US_ITS ---
APPROVED REPORT EXAM: Comprehensive 2D, Doppler, and color-flow Echocardiogram Patient Location: Out-Patient [employer] Supervisor: Carina Berger RDCS (AE) Other Information Study Quality: Fair. Technically limited study due to body habitus, exam done supine. Conclusion Normal left ventricular wall thickness and chamber size. Ejection fraction is 55%. Wall motion is n ormal. Patient is in atrial fibrillation with [id number] variation Normal right ventricular size and function Both atria are mildly dilated Aortic valve is calcified and trileaflet. There is mild to moderate aortic stenosis. Mean gradient is 19 mmHg. Calculated aortic valve area 0.9 cm?? Mitral annular calcification, mild mitral regurgitation Wall motion Left Ventricle The left ventricle is normal size. The overall left ventricular systolic function appears normal. The re is normal left ventricular wall thickness. There is normal LV segmental wall motion. LVEF is 55%. Right Ventricle Right ventricle is not well visualized. Right ventricular systolic function could not be assessed. Atria Left atrium is mildly dilated. Right atrium is m ildly dilated. Aortic Valve Aortic valve is calcified. Number of aortic valve leaflets could not be assessed. Mild to moderate a ortic stenosis. Highest pesk aortic valve gradient is 29.25mmHg. Highest mean aortic valve gradient i s 19.28mmHg. Calculated VIKTOR by the continuity equation is .9cm2. No aortic regurgitation is present. Mitral Valve mitral annular calcification. No evidence of mitral valve stenosis. Mild mitral regurgitation. Tricuspid Valve The tricuspid valve is normal in structure. There is no tricuspid valve stenosis. Mild tricuspid regu rgitation. Pulmonic Valve The pulmonary valve is normal in structure. There is no pulmonic valvular stenosis. Trace pulmonic re gurgitation. Great Vessels The aortic root is normal in size. Ascending aorta is not well visualized. Aortic arch is normal in c aliber. The IVC was not visualized. Technically limited subcostal imaging Pericardium Technically limited subcostal imaging. 2D Dimensions IVSD d PLAX 0.99 cm M: 0.6-1.2 Ao Root d 3.15 cm M: 3.1 - 3.7 LVPW d PLAX 0.98 cm M: 0.6 - 1.2 LVID d PLAX 4.20 cm M: 4.2 - 5.8 LVDs 3.07 cm M: 2.5 - 4.0 LV EF Teichholz 52.7 % FS 26.82 % LV EDV (Teich) 78.6 mL LV ESV (Teich) 37.1 mL M-Mode TAPSE 1.92 cm (M/F) >1.7 Auto EF LV EDV A4C 105.3 mL LV EDV A2C 108.3 mL LV EDV BP 107.7 mL LV ESV A4C 47.5 mL LV ESV A2C 50.9 mL LV ESV BP 49.5 mL LVEF(%) A4C 54.9 % LVEF(%) A2C 53.0 % LVEF(%) BP 54.1 % LV SV A4C 57.8 ml LV SV A2C 57.4 ml LV SV BP 58.2 ml LV CO A4C 3.8 L/min LV CO A2C 4.4 L/min LV CO BP 4.1 L/min HR A4C 66.42 BPM HR A2C 76.28 BPM LV EDV Index (BP) LA Volume LA Length A4C 5.4 cm LA Length A2C 6.0 cm LA Area A4C s 19.84 cm2 LA Area A2C s 23.60 cm2 LA Vol A4C A-L 61.92 mL LA Vol A2C A-L 79.27 mL LA Vol Biplane A-L 73.7 mL LA Vol/BSA A4C A-L LA Vol/BSA A2C A-L LA Vol/BSA BP A-L 39.2 mL/m2 LA Vol A4C MOD 57.0 mL LA Vol A2C MOD 73.9 mL LA Vol BP MOD 68.0 mL LV Diastology MV E' medial 0.086 (>0.07 m/s) MV E Vmax 1.13 (0.4-1.3 m/s) MV E/E' MED 13.13 (<14) MV E' lateral 0.126 (>0.1 m/s) MV E/E' LAT 9.03 (<14) MV E' Average 0.106 m/s MV E/E'(average) 10.70 Aortic Valve AoV Vmax 2.70 m/s LVOT Vmax 0.74 m/s AoV Peak Grad 29.2 mmHg LVOT Peak Grad 2.2 mmHg AoV Area (Vmax) 0.87 cm2 LVOT VTI 0.124 m AoV VTI 0.575 m LVOT Mean Grad 1.1 mmHg AoV Mean Rodrigue. 2.10 m/s LVOT SV 39.48 mL AoV Mean Grad 19.3 mmHg LVOT Diam s 2.00 cm AoV Area (VTI) 0.69 cm2 AV Regurg Peak Gr. 29.25 mmHg Velocity Ratio 0.27 Mitral Valve MV DT 210 (160-240 msec) MV Vmax TIPS 1.20 m/s MV Mean Grad 1.8 (<2mmHg) MV VTI 0.353 m Pulmonary Valve PV Vmax 1.01 (0.5-1.5 m/s) RVOT Vmax 0.65 m/s PV Peak Grad 4.1 mmHg RVOT Peak Gr. 1.7 mmHg PV Mean Rodrigue 0.69 m/s RVOT VTI 0.121 m PV Mean Grad 2.2 mmHg RVOT Mean Gr. 1.0 mmHg Tricuspid Valve TV S' 0.08 m/s TR Vmax 2.45 m/s TR Peak Grad 24.0 mmHg
== END 2024-10-27 00:31 ==
PROVIDERS: PCP Family Medicine; Visit Provider Internal Medicine Interventional Cardiology
DX: I50.9 Heart failure, unspecified (principal); I35.0 Nonrheumatic aortic (valve) stenosis; I36.1 Nonrheumatic tricuspid (valve) insufficiency
CPT/HCPCS: 93306

== ENCOUNTER 2024-11-02 09:42 | Outpatient (CLI) | payer MEDICARE, SELFPAY ==
--- NOTE | 2024-11-02 09:30 | RT.EKG_ITS ---
APPROVED REPORT Exam: Resting ECG Reason for Exam: cardiac evaluation Patient Location: O HR:74 bpm ECG Measurements Heart Rate 74 AXIS IA [id number] P [id number] QRSd 112 QRS 18 QT 393 T -22 QTc 436 Conclusion Atrial fibrillation...V-rate 59- 82, irreg A-activity Artifact
== END 2024-11-02 09:43 | disposition home or self-care (01) ==
LOC: DI.CARD 09:42
PROVIDERS: PCP Family Medicine; Visit Provider Internal Medicine Cardiovascular Disease
DX: I35.0 Nonrheumatic aortic (valve) stenosis (principal); E78.5 Hyperlipidemia, unspecified
CPT/HCPCS: 93010

== ENCOUNTER → 2024-11-02 09:46 | Outpatient (BNVA) | payer MEDICARE, SELFPAY | PROVIDERS: PCP Family Medicine; Visit Provider Internal Medicine Cardiovascular Disease | DX: I70.90 Unspecified atherosclerosis (principal); I35.0 Nonrheumatic aortic (valve) stenosis; I48.91 Unspecified atrial fibrillation | CPT/HCPCS: 93005; 99214 ==

== ENCOUNTER 2024-11-20 02:47 | Outpatient (CLI) | payer MEDICARE, SELFPAY ==
[2024-11-20 12:45] LABS: HCT 45.7 % (40.0-50.0); HGB 15.1 g/dL (13.5-17.5); MCH 33.3 pg (27.0-33.0); MCV 101 fL (80-95); MPV 9.4 fL (8.0-11.0); Platelet Count 186 10^3/uL (130-400); RBC 4.54 10^6/uL (4.36-5.78); WBC 5.17 10^3/uL (4.4-10.8)
[2024-11-20 13:05] LABS: COMMENT (LAB VIEW ONLY) 72.67 mg/dL; Microalb ug/mg Crea 23.4 ug/mg Cr
[2024-11-20 13:07] LABS: ALT 42 U/L (16-63); AST 27 U/L (15-37); Albumin 3.8 g/dL (3.4-5.0); Alkaline Phosphatase 81 U/L (46-116); Anion Gap 6.6 mmol/L (3-11); BUN 24 mg/dL (7-18); Bilirubin, Total 0.81 mg/dL (0.2-1.0); CO2 31.4 mmol/L (21.0-32.0); CREATININE 1.1 mg/dL (0.70-1.30); Calcium 9.7 mg/dL (8.5-10.1); Calculated LDL 31 mg/dL (<100); Chloride 104 mmol/L (98-107); Cholesterol 98 mg/dL (<200); Estimated GFR 67.86 (mL/min/1.73m2); Glucose 184 mg/dL (74-106); HDL Cholesterol 48 mg/dL (40-60); Potassium 4.7 mmol/L (3.5-5.1); Sodium 142 mmol/L (136-145); TSH (W/Ref FT4) 2.57 uIU/mL (0.36-3.74); Triglyceride 97 mg/dL (<150)
[2024-11-20 14:08] LABS: Hemoglobin A1C 7.3 % (<5.7)
[2024-11-21 15:16] LABS: Lab Add On Test DONE
[2024-11-21 15:56] LABS: Vitamin B12 687 pg/mL (193-986)
== END 2024-11-20 02:48 | disposition home or self-care (01) ==
LOC: LOS 02:47
PROVIDERS: PCP Family Medicine; Visit Provider Family Medicine
DX: I10 Essential (primary) hypertension (principal); E03.9 Hypothyroidism, unspecified; E11.9 Type 2 diabetes mellitus without complications; T50.905A Adverse effect of unspecified drugs, medicaments and biological substances, initial encounter
CPT/HCPCS: 36415; 80053; 80061; 85027; 82043; 82570; 82607; 83036; 84443

== ENCOUNTER 2025-08-04 09:12 | Outpatient (REF) | payer MEDICARE, SELFPAY ==
[2025-08-04 14:13] LABS: EPI 027-NAP1-B1 PRESUMPTIVE NEGATIVE
[2025-08-05 21:05] LABS: Campylobacter PCR Negative (Negative); Shiga Toxin PCR Negative (Negative); Shigella/Enteroinvasive Ecoli Negative (Negative)
[2025-08-07 12:34] LABS: Helicobacter pylori Ag, Feces Negative (Negative)
== END 2025-08-04 09:13 | disposition home or self-care (01) ==
LOC: LBN 09:12
PROVIDERS: PCP Family Medicine; Visit Provider Family Medicine
DX: R19.7 Diarrhea, unspecified (principal)
CPT/HCPCS: 87015; 87269; 87272; 87338; 87505; 83630; 83993

== ENCOUNTER 2025-08-06 00:31 | Outpatient (CLI) | payer MEDICARE, SELFPAY ==
[2025-08-06 14:38] LABS: Abs Immature Grans 0.03 10^3/uL (0.0-0.06); HCT 42.8 % (40.0-50.0); HGB 13.7 g/dL (13.5-17.5); Immature Grans % 0.5 %; MCH 32.0 pg (27.0-33.0); MCHC 32.0 % (32.0-36.0); MCV 100 fL (80-95); MPV 9.8 fL (8.0-11.0); Platelet Count 147 10^3/uL (130-400); RBC 4.28 10^6/uL (4.36-5.78); RDW 13.1 % (11.8-14.1); RDW-SD 48.7 fL; WBC 6.48 10^3/uL (4.4-10.8)
[2025-08-06 14:50] LABS: ALT 51 U/L (16-63); AST 30 U/L (15-37); Albumin 3.7 g/dL (3.4-5.0); Alkaline Phosphatase 87 U/L (46-116); Anion Gap 5.0 mmol/L (3-11); BUN 20 mg/dL (7-18); Bilirubin, Total 0.5 mg/dL (0.2-1.0); CO2 33.0 mmol/L (21.0-32.0); Calcium 9.5 mg/dL (8.5-10.1); Chloride 99 mmol/L (98-107); Estimated GFR 85.80 (mL/min/1.73m2); Glucose 192 mg/dL (74-106); Potassium 4.2 mmol/L (3.5-5.1); Sodium 137 mmol/L (136-145); Total Protein 7.2 g/dL (6.4-8.2)
== END 2025-08-06 00:32 | disposition home or self-care (01) ==
LOC: LOS 00:31
PROVIDERS: PCP Family Medicine; Visit Provider Family Medicine
DX: R19.7 Diarrhea, unspecified (principal); I10 Essential (primary) hypertension; R53.83 Other fatigue
CPT/HCPCS: 36415; 80053; 85025

== ENCOUNTER → 2025-08-10 03:34 | Outpatient (CLI) | payer MEDICARE, SELFPAY ==
--- NOTE | 2025-08-10 08:30 | DI.US_ITS ---
APPROVED REPORT EXAM: Comprehensive 2D, Doppler, and color-flow Echocardiogram Patient Location: Out-Patient Supervisor Dehydrogenation: Elroy Lawrence RDCS (AE) Indications: Aortic stenosis Other Information Study Quality: Adequate. Technically limited study due to body habitus. Conclusion Normal left ventricular wall thickness and chamber size. Ejection fraction is 50 to 55%. There are no segmental wall motion abnormalities Normal right ventricular size and function Both atria are mildly enlarged Aortic valve is calcified and trileaflet. There is moderate aortic stenosis. Peak gradient is 48, mean 29 mmHg. There is no aortic regurgitation Mitral annular calcification. Mild to moderate mitral regurgitation Mild tricuspid regurgitation. Estimated right ventricular systolic pressure is 38 mmHg Wall motion Left Ventricle The left ventricle is normal size. The left ventricular systolic function is normal. The left ventricular ejection fraction is within the normal range. There is normal left ventricular wall thickness. No segmental wall motion abnormalities There is no ventricular septal defect visualized. LVEF is 50-55%. Right Ventricle The right ventricle is normal size. The right ventricular systolic function is normal. Atria The left atrium is mildly dilated Right atrium is mildly dilated. The interatrial septum is intact with no evidence for an atrial septal defect. Aortic Valve Aortic valve is calcified. Aortic valve is trileaflet. Moderate aortic stenosis. Peak aortic valve gradient is 47.85 mmHg. Highest mean aortic valve gradient is 28.46 Hg. Calculated VIKTOR by the continuity equation is 0.9 cm2. No aortic regurgitation is present. Mitral Valve mitral annular calcification. No evidence of mitral valve stenosis. Mild to moderate mitral regurgitation. Tricuspid Valve The tricuspid valve is normal in structure. There is no tricuspid valve stenosis. Mild tricuspid regurgitation. The RVSP is 38.3 mmHg. Pulmonic Valve The pulmonary valve is normal in structure. There is no pulmonic valvular stenosis. Mild pulmonic regurgitation. Great Vessels The aortic root is normal in size. The ascending aorta is normal in size. Aortic arch is normal in caliber. IVC is normal in size and collapses >50% with inspiration. Pericardium There is no pericardial effusion. 2D Dimensions IVSD d PLAX 1.02 cm M: 0.6-1.2 Ao Root d 3.04 cm M: 3.1 - 3.7 LVPW d PLAX 1.12 cm M: 0.6 - 1.2 Ao Asc Diam d 2.94 cm M: 2.6 - 3.4 LVID d PLAX 5.22 cm M: 4.2 - 5.8 LVDs 3.87 cm M: 2.5 - 4.0 LV EF Teichholz 50.5 % FS 25.86 % LV EDV (Teich) 130.6 mL LV ESV (Teich) 64.7 mL Stroke Vol Index (Teich) 34.34 M-Mode TAPSE 1.70 cm (M/F) >1.7 Auto EF LV EDV A4C 124.7 mL LV EDV A2C 75.6 mL LV EDV BP 101.8 mL LV ESV A4C 62.7 mL LV ESV A2C 35.7 mL LV ESV BP 47.4 mL LVEF(%) A4C 49.7 % LVEF(%) A2C 52.8 % LVEF(%) BP 53.5 % LV SV A4C 62.0 ml LV SV A2C 39.9 ml LV SV BP 54.4 ml LV CO A4C 6.6 L/min LV CO A2C 3.9 L/min LV CO BP 5.2 L/min HR A4C 106.82 BPM HR A2C 97.04 BPM LV EDV Index (BP) LA Volume LA Length A4C 6.7 cm LA Length A2C 6.1 cm LA Area A4C s 23.76 cm2 LA Area A2C s 20.54 cm2 LA Vol A4C A-L 71.49 mL LA Vol A2C A-L 58.94 mL LA Vol Biplane A-L 68.2 mL LA Vol/BSA A4C A-L LA Vol/BSA A2C A-L LA Vol/BSA BP A-L 35.5 mL/m2 LA Vol A4C MOD 68.7 mL LA Vol A2C MOD 54.7 mL LA Vol BP MOD 64.2 mL RA Volume RA Area A4C 17.2 cm2 RA ESV A4C (A-L) 43.5mL RA Vol/BSA A4C A-L RA Length A4C 5.8 cm RA ESV A4C (MOD) 41.0mL LV Diastology MV E Vmax 1.15 (0.4-1.3 m/s) MV A Vmax 0.40 (0.4-1.3 m/s) E/A Ratio 2.9 Aortic Valve AoV Vmax 3.46 m/s LVOT Vmax 0.79 m/s AoV Peak Grad 47.8 mmHg LVOT Peak Grad 2.5 mmHg AoV Area (Vmax) 0.86 cm2 LVOT VTI 0.185 m AoV VTI 0.792 m LVOT Mean Grad 1.6 mmHg AoV Mean Rodrigue. 2.50 m/s LVOT SV 69.51 mL AoV Mean Grad 28.5 mmHg LVOT Diam s 2.15 cm AoV Area (VTI) 0.88 cm2 AV Regurg Peak Gr. 47.85 mmHg Velocity Ratio 0.23 Mitral Valve MV DT 164 (160-240 msec) Tricuspid Valve RA Pressure 3.00 mmHg TR Vmax 2.97 m/s TR Peak Grad 35.3 mmHg RVSP (TR) 38.3 mmHg
== END ==
LOC: DI 03:34
PROVIDERS: PCP Family Medicine; Visit Provider Family Medicine
DX: I35.0 Nonrheumatic aortic (valve) stenosis (principal)
CPT/HCPCS: 93306

== ENCOUNTER → 2025-08-23 12:43 | Outpatient (BNVA) | payer MEDICARE, SELFPAY | PROVIDERS: PCP Family Medicine; Referring Provider Family Medicine; Visit Provider Internal Medicine Cardiovascular Disease | DX: I35.0 Nonrheumatic aortic (valve) stenosis (principal); I48.91 Unspecified atrial fibrillation; Z95.1 Presence of aortocoronary bypass graft; Z79.01 Long term (current) use of anticoagulants | CPT/HCPCS: 99213 ==